=== PATIENT | female | born 1940 | race Caucasian/White ===

== ENCOUNTER → 2017-01-30 | Outpatient (CLI) | payer MEDICARE, BC ==
--- NOTE | 2017-02-02 10:09 | MM ---
Reason for exam: screening (asymptomatic). Last mammogram was performed 1 year ago. History: Patient is postmenopausal and history of other cancer. Physical Findings: A clinical breast exam by your physician is recommended on an annual basis and results should be correlated with mammographic findings. MG 3D Screening Mammo W/Cad Bilateral CC and MLO view(s) were taken. Prior study comparison: January 29, 2016, bilateral MG 3d screening mammo w/cad. November 15, 2014, bilateral MG screening mammo w CAD. There are scattered fibroglandular densities. Benign calcifications bilaterally. No significant changes when compared with prior studies. ASSESSMENT: Benign, BI-RAD 2 RECOMMENDATION: Routine screening mammogram of both breasts in 1 year.
== END | disposition home or self-care (01) ==
LOC: RADMAMWWP 10:51
PROVIDERS: ATTEND Family Medicine
DX: Z12.31 Encounter for screening mammogram for malignant neoplasm of breast (principal)
CPT/HCPCS: 77063; G0202

== ENCOUNTER → 2018-09-08 | Outpatient (CLI) | payer MEDICARE ==
[2018-09-08 08:34] LABS: Blood Urea Nitrogen 18 mg/dL (7-17)
--- NOTE | 2018-09-08 12:42 | MR ---
EXAMINATION TYPE: MR lumbar spine wo/w con DATE OF EXAM: 09/08/2018 COMPARISON: CT abdomen 02/02/2013 HISTORY: 77-year-old female Lumbago with sciatica / Fusion Technique: Multiplanar, multisequence images of the lumbar spine were obtained before and after admin istration of 9 mL intravenous Gadavist gadolinium contrast. FINDINGS: Vertebral body heights are preserved and alignment is maintained. 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 Post surgical changes of L3-L5 posterior fusion with corresponding laminectomies. There is mild to moderate degenerative disc disease at the remaining, nonfused levels and facet arthr opathy. Mild heterogeneity of marrow signal without suspicious bone marrow replacement. Conus medullaris is normal. At T12-L1, there is a small left paracentral disc protrusion without significant spinal canal or fora priscilla stenosis. At L1-L2, mild facet arthropathy without significant canal or foraminal stenosis. At L2-L3, level above the fusion, there is large central disc protrusion with annular fissure with ad ditional ligamentum flavum thickening and facet arthropathy. Changes result in a severe spinal canal stenosis with mild inferior foraminal narrowing on both sides. At the fused L3-L4 level, there is a cyst while central disc protrusion and facet arthropathy. Unifor m mild narrowing of the spinal canal without significant neuroforaminal stenosis. At L4-L5, there is a small right paracentral protrusion impressing on the ventral thecal sac. Facet a rthropathy with mild right and minimal inferior left neuroforaminal narrowing. At L5-S1, facet arthropathy without significant spinal canal or neuroforaminal stenosis seen. There appears to be severe right-sided hydronephrosis. No dilated ureter is identified. Findings may reflect UPJ obstruction. That of hydronephrosis seems worsened from 2015 and 2012. No suspicious epidural or perineural enhancing granulation tissue seen. There is metal hardware artif act limitation. IMPRESSION: 1. Postsurgical change of posterior lumbar fusion from L3 through L5 levels with corresponding kim ctomies. 2. Accelerated degenerative changes above the fusion at L2-L3. There is a focal disc herniation here with annular fissure, ligamentum flavum thickening, and facet arthropathy contributing to severe spin al canal stenosis. 3. Scattered variable minimal to mild neural foraminal stenoses as outlined above. 4. T12-L1, there is a small focal left paracentral disc herniation.
== END | disposition home or self-care (01) ==
LOC: RADMRIMAIN 07:57
PROVIDERS: ATTEND Family Medicine
DX: M48.061 Spinal stenosis, lumbar region without neurogenic claudication (principal); M99.73 Connective tissue and disc stenosis of intervertebral foramina of lumbar region; M51.15 Intervertebral disc disorders with radiculopathy, thoracolumbar region; M47.26 Other spondylosis with radiculopathy, lumbar region; M46.96 Unspecified inflammatory spondylopathy, lumbar region; Z98.1 Arthrodesis status
CPT/HCPCS: 82565; 84520; 72158; A9585

== ENCOUNTER → 2018-10-28 | Outpatient (CLI) | payer MEDICARE ==
--- NOTE | 2018-10-28 14:41 | US ---
EXAMINATION TYPE: US kidneys/renal and bladder DATE OF EXAM: 10/28/2018 COMPARISON: CT abdomen January 21, 2013. MRI lumbar spine September 08, 2018 CLINICAL HISTORY: N30.21 chronic cystitis with hematuria. EXAM MEASUREMENTS: Right Kidney: 11.9 x 5.5 x 6.2 cm Left Kidney: 10.1 x 5.2 x 4.9 cm Right Kidney: Pyelocaliectasis seen Left Kidney: difficult to visualize, echogenic kidney. Question soft tissue density as regular tissue versus mass, measures 2.0 x 1.6 x 1.9 cm. Bladder: wnl Bilateral Jets seen: Yes Severe right-sided pyelocaliectasis remains present as has been present on older studies. No gross le ft-sided hydronephrosis. Suboptimal evaluation of left kidney is seen. Increased cortical echogenicit y is present. Cannot exclude new 2 cm mass upper to mid pole level left kidney on image 37 which is n ot included in [id number] on recent MRI. 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 Suboptimal evaluation of left kidney with new cortical thinning and inc reased cortical echogenicity. No gross hydronephrosis. Cannot exclude new 2 cm solid mass. Further in vestigation with renal protocol contrast-enhanced CT or MRI is advised.
== END | disposition home or self-care (01) ==
LOC: RADUSWWP 13:52
PROVIDERS: ATTEND Family Medicine
DX: N13.30 Unspecified hydronephrosis (principal)
CPT/HCPCS: 76770

== ENCOUNTER → 2018-11-17 | Outpatient (CLI) | payer BC, MEDICARE ==
--- NOTE | 2018-11-17 15:15 | XR ---
EXAMINATION TYPE: XR chest 2V DATE OF EXAM: 11/17/2018 COMPARISON: 12/12/2017 TECHNIQUE: PA and lateral views submitted. HISTORY: Presurgical FINDINGS: Linear changes at the left lung base are seen. There is no interstitial edema or pneumothorax. Promin ence of the right suprahilar region. Heart size is stable. IMPRESSION: 1. Left basilar atelectasis or infiltrate stable 2. Prominence of the right suprahilar region is stable dating back to 2015 and therefore likely rufus childs
--- NOTE | 2018-11-17 16:48 | CT ---
EXAMINATION TYPE: CT abdomen wo/w con DATE OF EXAM: 11/17/2018 HISTORY: Abnormal diagnostic findings. Poor historian. CT DLP: 1423.5mGycm Automated Exposure Control for Dose Reduction was Utilized. CONTRAST: CT scan of the abdomen is performed without and with IV Contrast, patient injected with 100ml mL of I sovue M300. COMPARISON: 01/21/2013 CT abdomen pelvis and renal ultrasound dated 10/28/2018 FINDINGS: LUNG BASES: Severe coronary artery calcifications are seen. Multifocal subsegmental bibasilar atelect asis and pleural parenchymal scarring are noted at the lung bases. LIVER/GB: There is mild degree hepatic steatosis as there is diffuse hypoattenuation of the hepatic p arenchyma. PANCREAS: No significant abnormality is seen. SPLEEN: No significant abnormality is seen. ADRENALS: No significant abnormality is seen. KIDNEYS: There is a right lower pole 1.0 cm renal cyst. There is severe right hydroureteronephrosis w ithout obstructing calculus similar to exams dating back to 2012 highly favored to relate to chronic right ureteral pelvic junction stricture. However there is only minimal right cortical renal thinning in comparison to the left. There are bilateral subcentimeter hypoattenuated renal lesions that are t oo small to accurately characterize. No left-sided hydronephrosis. No left-sided renal lesion. BOWEL: No significant abnormality is seen. Moderate amount retained colonic stool is present. LYMPH NODES: No greater than 1cm abdominal lymph nodes are appreciated. OSSEOUS STRUCTURES: Postsurgical changes are present of the lower lumbar spine. Multilevel degenerati ve disc disease of the visualized thoracolumbar spine is noted. There is a mild levoscoliosis of the lumbar spine. Posterior disc osteophyte complex at T12-L1 creates mild to moderate spinal canal steno sis. IMPRESSION: 1. The left kidney enhances symmetrically. No left-sided renal lesion is seen, therefore the previous ly questioned left renal mass relates to artifact on the prior ultrasound. 2. Chronic right severe hydronephrosis again highly favored to relate to chronic right ureteropelvic junction stricture. 3. Mild degree hepatic steatosis. 4. Severe coronary artery calcifications, marker of coronary artery disease.
== END | disposition home or self-care (01) ==
LOC: RADCTMAIN 14:45
PROVIDERS: ATTEND Family Medicine
DX: K76.0 Fatty (change of) liver, not elsewhere classified (principal); Z01.811 Encounter for preprocedural respiratory examination; Z01.812 Encounter for preprocedural laboratory examination
CPT/HCPCS: 82565; 84520; 71046; 74170; 36415; Q9967

== ENCOUNTER 2019-04-18 16:55 | Emergency (ER) | payer MEDICARE ==
[2019-04-18 17:17] VITALS: RESP 18
[2019-04-18] MEDS ORDERED: SODIUM CHLORIDE 0.9% 1,000 ML IV ONE (17:19)
[2019-04-18] MEDS ORDERED: SODIUM CHLORIDE 0.9% 500 ML 500 ML IV ONE (17:19)
[2019-04-18] MEDS ORDERED: LIDOCAINE 1% INJ 10MG/ML (20 ML MDV) SQ ONE (17:20)
[2019-04-18] MEDS ORDERED: LIDOCAINE/EPINEPHR/TETRACAINE 5 ML BOTTLE TOPICAL ONE (17:20)
[2019-04-18] MEDS ORDERED: DIPH,PERTUS(ACELL)TETVAC-LF 0.5 ML VIAL IM ONE (17:20)
[2019-04-18 17:46] LABS: Appearance,Urine Cloudy (Clear); Bacteria,Urine Rare /hpf; Bilirubin,Urine Negative (Negative); Blood,Urine Negative (Negative); Color,Urine Yellow; Glucose,Urine (UA) Negative (Negative); Hyaline Casts,Urine 1 /lpf (0-2); Ketones,Urine Negative (Negative); Leukocyte Esterase,Urine Moderate (Negative); Mucus,Urine Rare /hpf; Nitrite,Urine Negative (Negative); PH, Urine 6.5 (5.0-8.0); Protein,Urine Negative (Negative); RBC,Urine 1 /hpf (0-5); Specific Gravity,Urine 1.017 (1.001-1.035); Squamous Epithelial Cell,Urine 1 /hpf (0-4); Urobilinogen,Urine <2.0 mg/dL (<2.0); WBC,Urine 22 /hpf (0-5)
--- NOTE | 2019-04-18 17:54 | CT ---
EXAMINATION TYPE: CT brain sandra rodriguez DATE OF EXAM: 04/18/2019 COMPARISON: 11/13/2016 HISTORY: Fall with head injury CT DLP: 1385.8 mGycm Automated exposure control for dose reduction was used. TECHNIQUE: CT scan of the head and cervical spine are performed without contrast. FINDINGS: There is some cerebral cortical atrophy. There is no mass effect nor midline shift. There is no sign of intracranial hemorrhage. Calvarium is intact. The cervical vertebra have normal alignment. There is degenerative disc space narrowing at C6-7 with spurring of the endplates. Facet joints are intact. The skull base appears intact. There is no eviden ce of cervical spine fracture. I see no focal bone destruction. IMPRESSION: Cerebral atrophy. No acute intracranial abnormality. No change. Minor degenerative disc changes in the lower cervical spine. No fracture seen.
[2019-04-18 17:55] LABS: Anion Gap 9 mmol/L; Blood Urea Nitrogen 13 mg/dL (7-17); Calcium 9.6 mg/dL (8.4-10.2); Carbon Dioxide 29 mmol/L (22-30); Chloride 102 mmol/L (98-107); Glucose 121 mg/dL (74-99); Potassium 3.2 mmol/L (3.5-5.1); Sodium 140 mmol/L (137-145)
[2019-04-18 17:58] LABS: Anisocytosis Slight; HCT 45.2 % (34.0-46.0); HGB 15.8 gm/dL (11.4-16.0); MCH 31.1 pg (25.0-35.0); MCHC 34.9 g/dL (31.0-37.0); MCV 89.1 fL (80.0-100.0); Mean Platelet Volume 8.3; Platelet Count 224 k/uL (150-450); RBC 5.07 m/uL (3.80-5.40); WBC 7.3 k/uL (3.8-10.6)
--- NOTE | 2019-04-18 18:24 | ED ---
Fall HPI - General Chief Complaint: Fall Stated Complaint: FALL, HEAD INJURY Time Seen by Provider: 04/18/19 17:05 Source: patient, EMS, RN notes reviewed, old records reviewed Mode of arrival: EMS - History of Present Illness Initial Comments: Patient is a 78-year-old female, who presents emergency department today for evaluation after tripping and falling. She reports that she fell, hit the right side of her head. Denies loss of consciousness. states that she has some right shoulder pain and left knee pain. Patient states that she is not on any blood thinners besides aspirin. Patient states reports that he witnessed the fall. She denies any chest pain or shortness breath or other symptoms prior to tripping and falling. - Related Data Home Medications Medication Instructions Recorded Confirmed Aspirin 325 mg PO DAILY 01/24/16 04/18/19 Felodipine [Felodipine ER] 10 mg PO DAILY 01/24/16 04/18/19 Levothyroxine Sodium [Synthroid] 50 mcg PO DAILY 01/24/16 04/18/19 Venlafaxine HCl [Effexor] 75 mg PO BID 01/24/16 04/18/19 Calcium Carbonate/Vitamin D3 1 tab PO DAILY 11/13/16 04/18/19 [Calcium 600-Vit D3 400 Caplet] Multivit-Min/Iron/Folic/Lutein 1 tab PO DAILY 11/13/16 04/18/19 [Centrum Silver Women Tablet] [place]-3 Fatty Acids/Fish Oil [Fish 1 cap PO DAILY 11/13/16 04/18/19 Oil 1,000 mg Softgel] Potassium Chloride ER [K-Dur 10] 10 meq PO DAILY 11/13/16 04/18/19 Vitamin E (Dl,Tocopheryl Acet) 400 unit PO DAILY 11/13/16 04/18/19 [Vitamin E] Chlorthalidone 25 mg PO DAILY 12/09/17 04/18/19 Omeprazole 40 mg PO DAILY 12/09/17 04/18/19 Atorvastatin [Lipitor] 40 mg PO HS 04/18/19 04/18/19 Atorvastatin [Lipitor] 40 mg PO HS 04/18/19 04/18/19 Tolterodine Tartrate [Detrol LA] 4 mg PO DAILY 04/18/19 04/18/19 Previous Rx's Medication Instructions Recorded Cephalexin [Keflex] 500 mg PO Q8HR #28 cap 04/18/19 Allergies Allergy/AdvReac Type Severity Reaction Status Date / Time azithromycin [From Zithromax] Allergy Rash/Hives Verified 04/18/19 17:27 celecoxib [From Celebrex] Allergy Unknown Verified 04/18/19 17:27 Penicillins Allergy Rash/Hives Verified 04/18/19 17:27 Sulfa (Sulfonamide Allergy Unknown Verified 04/18/19 17:27 Antibiotics) ciprofloxacin [From Cipro] AdvReac Unknown Verified 04/18/19 17:27 nitrofurantoin AdvReac Unknown Verified 04/18/19 17:27 [From Macrobid] tramadol HCl [From Ultram] AdvReac stomach Verified 04/18/19 17:27 upset Review of Systems ROS Statement: Those systems with pertinent positive or pertinent negative responses have been documented in the HPI. ROS Other: All systems not noted in ROS Statement are negative. Past Medical History Past Medical History: GERD/Reflux, Hyperlipidemia, Hypertension, Memory Impairment, Osteoarthritis (OA), Skin Disorder, Thyroid Disorder Additional Past Medical History / Comment(s): hx. kidney stones,UTI, constipation,INCONT OF URINE KWAN A PAD, MIGRAINES, PT STATED YEARS AGO A DR TOLD HER SHE HAD "COLITIS" History of Any Multi-Drug Resistant Organisms: ESBL Date of last positivie culture/infection: 06/25/17 MDRO Source:: urine Past Surgical History: Appendectomy, Back Surgery, Bowel Resection, Cholecystectomy, Heart Catheterization With Stent, Hysterectomy Additional Past Surgical History / Comment(s): lower back disk fusion Past Anesthesia/Blood Transfusion Reactions: Motion Sickness Date of Last Stent Placement:: 2000 Past Psychological History: Anxiety, Depression Smoking Status: Never smoker Past Alcohol Use History: None Reported Past Drug Use History: None Reported - Past Family History Mother Family Medical History: Hypertension Father Family Medical History: Hypertension General Exam - General Exam Comments Initial Comments: This is a 78-year-old female. Alert and oriented. No significant distress. Limitations: no limitations General appearance: alert, in no apparent distress Head exam: Present: atraumatic, normocephalic, normal inspection Eye exam: Present: normal appearance, PERRL, EOMI. Absent: scleral icterus, conjunctival injection, periorbital swelling ENT exam: Present: normal exam, mucous membranes moist, other ( is a 2 cm laceration over the right parietal scalp.) Neck exam: Present: normal inspection Respiratory exam: Present: normal lung sounds bilaterally. Absent: respiratory distress, wheezes, rales, rhonchi, stridor Cardiovascular Exam: Present: regular rate, normal rhythm, normal heart sounds. Absent: systolic murmur, diastolic murmur, rubs, gallop, clicks GI/Abdominal exam: Present: soft, normal bowel sounds. Absent: distended, tend erness, guarding, rebound, rigid Back exam: Present: normal inspection Neurological exam: Present: alert, oriented X3, CN II-XII intact Psychiatric exam: Present: normal affect, normal mood Skin exam: Present: warm, dry, intact, normal color. Absent: rash Course Vital Signs 04/18/19 04/18/19 17:00 19:41 Temperature 97.9 F 98.7 F Pulse Rate 78 76 Respiratory 18 18 Rate Blood Pressure 150/70 142/62 O2 Sat by Pulse 98 97 Oximetry Procedures - Laceration Laceration #1 Site: face (forehead) Size (cm): 2 Description: linear Depth: simple, single layer Anesthetic Used: lidocaine 1% Anesthesia Technique: local infiltration Amount (mls): 2 Pre-repair: wound explored, irrigated extensively Type of Sutures: nylon Size of Sutures: 5-0 Number of Sutures: 3 Technique: simple, interrupted Patient Tolerated Procedure: well, no complications Medical Decision Making - Medical Decision Making 78 year old femael presents after trip and fall. Patient has laceration over forehead and clsoed with sutures. Patient CT brain and cspine are negative. Patient has contusion over knee and r shoulder, patient has full range of motion. Patient advised that lab work shows slight UTI, will start on keflex. Ds icussed close PCP follow up. Return parameters discussed. 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 Neutrophils # (Manual) 5.00 (1.3-7.7) k/uL Lymphocytes # (Manual) 1.02 (1.0-4.8) k/uL Monocytes # (Manual) 0.95 (0-1.0) k/uL Eosinophils # (Manual) 0.29 (0-0.7) k/uL Nucleated RBCs 0 (0-0) /100 WBC Manual Slide Review Performed Anisocytosis Slight Sodium 140 (137-145) mmol/L Potassium 3.2 L (3.5-5.1) mmol/L Chloride 102 (98-107) mmol/L Carbon Dioxide 29 (22-30) mmol/L Anion Gap 9 mmol/L BUN 13 (7-17) mg/dL Creatinine 0.68 (0.52-1.04) mg/dL Est GFR (CKD-EPI)AfAm >90 (>60 ml/min/1.73 sqM) Est GFR (CKD-EPI)NonAf 85 (>60 ml/min/1.73 sqM) Glucose 121 H (74-99) mg/dL Calcium 9.6 (8.4-10.2) mg/dL Urine Color Yellow Urine Appearance Cloudy H (Clear) Urine pH 6.5 (5.0-8.0) Ur Specific [place] 1.017 (1.001-1.035) Urine Protein Negative (Negative) Urine Glucose (UA) Negative (Negative) Urine Ketones Negative (Negative) Urine Blood Negative (Negative) Urine Nitrite Negative (Negative) Urine Bilirubin Negative (Negative) Urine Urobilinogen <2.0 (<2.0) mg/dL Ur Leukocyte Esterase Moderate H (Negative) Urine RBC 1 (0-5) /hpf Urine WBC 22 H (0-5) /hpf Ur Squamous Epith Cells 1 (0-4) /hpf Urine Bacteria Rare H (None) /hpf Hyaline Casts 1 (0-2) /lpf Urine Mucus Rare H (None) /hpf Disposition Clinical Impression: Fall, Facial laceration, Knee contusion, UTI (urinary tract infection) Disposition: HOME SELF-CARE Condition: Good Instructions (If sedation given, give patient instructions): Facial Laceration (ED) Additional Instructions: Patient advised to follow-up with primary care physician about urinary tract infection. Take antibiotics as prescribed. Please return to the emergency room in 8-10 days to have sutures removed. Please leave wound covered for the first 24-48 hours and then leave open to air after that time. Please use clean soap and water to clean the suture area to prevent scabbing over the top of your sutures. Please watch for any signs of infection which may include but not limited to increased pain, swelling, redness, fever or chills. Please return to the emergency room if any signs of infection do occur. Please return to the emergency room for any other concerns or complications. Prescriptions: Cephalexin [Keflex] 500 mg PO Q8HR #28 cap Is patient prescribed a controlled substance at d/c from ED?: No Referrals: Jan Vieira DO [Primary Care Provider] - 1-2 days Time of Disposition: 19:18
[2019-04-18 18:36] LABS: Band Neutrophils % 1 %; Eosinophils # (M) 0.29 k/uL (0-0.7); Lymphocytes # (M) 1.02 k/uL (1.0-4.8); Monocytes # (M) 0.95 k/uL (0-1.0); Neutrophils % (M) 68 %; Nucleated Red Blood Cells 0 /100 WBC (0-0); Total Cells Counted 100
--- NOTE | 2019-04-18 18:45 | XR ---
EXAMINATION TYPE: XR knee complete LT DATE OF EXAM: 04/18/2019 COMPARISON: NONE HISTORY: Knee pain TECHNIQUE: 3 views FINDINGS: There is moderate narrowing of the medial joint space. There is spurring of the femoral and tibial condyles. There is narrowing and spurring at the patellofemoral joint. I see no fracture. IMPRESSION: Moderate osteoarthritis. No fracture seen.
--- NOTE | 2019-04-18 18:45 | XR ---
EXAMINATION TYPE: XR shoulder complete RT DATE OF EXAM: 04/18/2019 COMPARISON: NONE HISTORY: Shoulder pain TECHNIQUE: 3 views FINDINGS: The glenohumeral joint is anatomic. There is some spurring at the shoulder joint. There is spurring at the AC joint. I see no fracture. IMPRESSION: There is some osteoarthritis. No fracture seen.
[2019-04-18] MEDS ORDERED: CEPHALEXIN 500MG STARTER PACK 4 CAP BTL PO STA (19:17)
[2019-04-18 19:42] VITALS: BP 142/62; PULSE 76; TEMP 98.7
== END 2019-04-18 19:42 | disposition home or self-care (01) ==
LOC: EC 16:55
DX: S01.81XA Laceration without foreign body of other part of head, initial encounter (principal); S80.01XA Contusion of right knee, initial encounter; N39.0 Urinary tract infection, site not specified; M25.511 Pain in right shoulder; K21.9 Gastro-esophageal reflux disease without esophagitis; E78.5 Hyperlipidemia, unspecified; I10 Essential (primary) hypertension; M19.90 Unspecified osteoarthritis, unspecified site; E07.9 Disorder of thyroid, unspecified; F32.9 Major depressive disorder, single episode, unspecified; F41.9 Anxiety disorder, unspecified; Z79.82 Long term (current) use of aspirin; Z79.890 Hormone replacement therapy; Z79.899 Other long term (current) drug therapy; Z88.0 Allergy status to penicillin; Z88.1 Allergy status to other antibiotic agents; Z88.2 Allergy status to sulfonamides; Z88.5 Allergy status to narcotic agent; Z88.6 Allergy status to analgesic agent; Z95.5 Presence of coronary angioplasty implant and graft; Z23 Encounter for immunization; W01.198A Fall on same level from slipping, tripping and stumbling with subsequent striking against other object, initial encounter; Y92.009 Unspecified place in unspecified non-institutional (private) residence as the place of occurrence of the external cause
CPT/HCPCS: 36415; 80048; 85025; 81001; 87086; 73030; 73562; 72125; 70450; 90715; 99284; 12011; 96360; 90471; J2001; 87077; 87186

== ENCOUNTER → 2021-06-14 | Outpatient (CLI) | payer MEDICARE ==
--- NOTE | 2021-06-14 18:54 | NM ---
EXAMINATION TYPE: NM DatScan Brain SPECT DATE OF EXAM: 06/14/2021 COMPARISON: NONE HISTORY: Tremors TECHNIQUE: 10 drops of Lugol's solution was administered 1 hour prior to injection as a thyroid bloc william agent. After the administration of 4.4 mCi I-123 Ioflupane DaTscan. Images obtained [address] injection. SPECT images of the brain were acquired with axial and coronal reconstructions. FINDINGS: The axial SPECT images demonstrate increased background activity and reduced activity withi n the bilateral striata. IMPRESSION: Abnormal appearance highly suggestive of idiopathic Parkinson's disease or Parkinsonian s yndrome.
== END | disposition home or self-care (01) ==
LOC: RADNMMAIN 10:57
PROVIDERS: ATTEND Psychiatry & Neurology Neurology
DX: R25.1 Tremor, unspecified (principal)
CPT/HCPCS: 78803; A9584

== ENCOUNTER 2023-01-28 09:12 | Observation (INO) | payer MEDICARE ==
[2023-01-28] MEDS ORDERED: ASPIRIN 81 MG PO STA (09:36)
[2023-01-28] MEDS ORDERED: KETOROLAC 15 MG/ML 1 ML VIAL IVP STA (09:37)
--- NOTE | 2023-01-28 10:03 | XR ---
EXAMINATION TYPE: XR chest 2V DATE OF EXAM: 01/28/2023 COMPARISON: Chest x-ray April 17, 2019 HISTORY: Chest pain. TECHNIQUE: Frontal and lateral views of the chest are obtained. FINDINGS: Reticular increased markings bilaterally. There is no suspicious focal air space opacity, pleural effusion, or pneumothorax seen. The cardiac silhouette size is within stable and normal limi ts. The osseous structures are demineralized. IMPRESSION: Chronic changes without acute pulmonary process.
[2023-01-28 10:10] LABS: ALT 10 U/L (4-34); AST 37 U/L (14-36); African American GFR (CKD) >90 (>60 ml/min/1.73 sqM); Albumin 3.9 g/dL (3.5-5.0); Alkaline Phosphatase 168 U/L (38-126); Anion Gap 7 mmol/L; Blood Urea Nitrogen 18 mg/dL (7-17); Calcium 9.7 mg/dL (8.4-10.2); Carbon Dioxide 33 mmol/L (22-30); Chloride 91 mmol/L (98-107); Glucose 132 mg/dL (74-99); Magnesium 1.9 mg/dL (1.6-2.3); Non-African American GFR(CKD) 83 (>60 ml/min/1.73 sqM); Potassium 2.8 mmol/L (3.5-5.1); Sodium 131 mmol/L (137-145); Total Bilirubin 1.2 mg/dL (0.2-1.3); Total Protein 6.9 g/dL (6.3-8.2)
[2023-01-28 10:17] LABS: HCT 42.2 % (34.0-46.0); HGB 15.4 gm/dL (11.4-16.0); Hyperchromasia Slight; MCH 31.5 pg (25.0-35.0); MCHC 36.4 g/dL (31.0-37.0); MCV 86.7 fL (80.0-100.0); Platelet Count 356 k/uL (150-450); RBC 4.87 m/uL (3.80-5.40); RDW 13.1 % (11.5-15.5); WBC 7.8 k/uL (3.8-10.6)
[2023-01-28 10:24] LABS: INR 0.9 (<1.2); Partial Thromboplastin Time 22.1 sec (22.0-30.0); Prothrombin Time 10.1 sec (9.0-12.0)
[2023-01-28] MEDS ORDERED: POTASSIUM CHLORIDE ER 20 MEQ TAB.ER PO STA (10:43)
[2023-01-28] MEDS ORDERED: ACETAMINOPHEN TAB 500 MG TAB PO STA ×2 (10:51→13:49)
[2023-01-28 11:00] LABS: Eosinophils # (M) 0.31 k/uL (0-0.7); Lymphocytes # (M) 0.55 k/uL (1.0-4.8); Monocytes # (M) 0.23 k/uL (0-1.0); Nucleated Red Blood Cells 0 /100 WBC (0-0); Total Cells Counted 100
[2023-01-28 11:01] LABS: Neutrophils % (M) 86 %
[2023-01-28 11:09] LABS: Appearance,Urine Cloudy (Clear); Bacteria,Urine Rare /hpf; Bilirubin,Urine Negative (Negative); Blood,Urine Negative (Negative); Color,Urine Yellow; Glucose,Urine (UA) Negative (Negative); Ketones,Urine Negative (Negative); Leukocyte Esterase,Urine Large (Negative); Mucus,Urine Rare /hpf; Nitrite,Urine Negative (Negative); Protein,Urine Negative (Negative); RBC,Urine 5 /hpf (0-5); Specific Gravity,Urine 1.013 (1.001-1.035); Squamous Epithelial Cell,Urine 1 /hpf (0-4); Urobilinogen,Urine <2.0 mg/dL (<2.0); WBC,Urine 92 /hpf (0-5)
[2023-01-28 11:18] LABS: Neutrophils # (M) 6.71 k/uL (1.3-7.7)
[2023-01-28] MEDS ORDERED: SODIUM CHLORIDE 0.9% 1,000 ML IV STA (11:28)
[2023-01-28] MEDS ORDERED: ACETAMINOPHEN TAB 325 MG TAB PO PRN (11:34)
[2023-01-28] MEDS ORDERED: NALOXONE 0.4 MG/ML 1 ML VIAL IV PRN (11:34)
[2023-01-28] MEDS: POTASSIUM CHLORIDE 10 MEQ in WATER FOR INJECTION 1 100ML.BAG IVPB SCH ×4 (11:41→16:48)
[2023-01-28] MEDS: LIDOCAINE 5% PATCH TOPICAL SCH (11:41)
--- NOTE | 2023-01-28 11:42 | ED ---
General Adult HPI - General Chief complaint: Chest Pain Stated complaint: chest pain Time Seen by Provider: 01/28/23 09:14 Source: patient, EMS, RN notes reviewed, old records reviewed Mode of arrival: EMS Limitations: no limitations - History of Present Illness Initial comments: Patient is an 82-year-old female with past medical history remarkable for memory issues, hypertension, chronic back pain, thyroid disorder who presents emergency Department with multiple nonspecific complaints. Has chronic right shoulder pain and states she has had some chest pain that radiated from her right shoulder earlier today that was reproducible on palpation but currently does not have. She denies any nausea, vomiting, abdominal pain. Denies any shortness of breath. Does endorse chronic lower back pain. Denies any extremity pain. Denies any diarrhea, fevers, chills. No other acute complaints at this time. Presents for further evaluation at this time. - Related Data Home Medications Medication Instructions Recorded Confirmed Aspirin 325 mg PO DAILY 01/24/16 04/18/19 Felodipine [Plendil] 10 mg PO DAILY 01/24/16 04/18/19 Levothyroxine Sodium [Synthroid] 50 mcg PO DAILY 01/24/16 04/18/19 Venlafaxine HCl [Effexor] 75 mg PO BID 01/24/16 04/18/19 Calcium Carbonate/Vitamin D3 1 tab PO DAILY 11/13/16 04/18/19 [Calcium 600-Vit D3 400 Caplet] Multivit-Min/Iron/Folic/Lutein 1 tab PO DAILY 11/13/16 04/18/19 [Centrum Silver Women Tablet] [place]-3 Fatty Acids/Fish Oil [Fish 1 cap PO DAILY 11/13/16 04/18/19 Oil 1,000 mg Softgel] Potassium Chloride ER [K-Dur 10] 10 meq PO DAILY 11/13/16 04/18/19 Vitamin E (Dl,Tocopheryl Acet) 400 unit PO DAILY 11/13/16 04/18/19 [Vitamin E (400 Iu = 180 mg)] Chlorthalidone 25 mg PO DAILY 12/09/17 04/18/19 Omeprazole 40 mg PO DAILY 12/09/17 04/18/19 Atorvastatin [Lipitor] 40 mg PO HS 04/18/19 04/18/19 Atorvastatin [Lipitor] 40 mg PO HS 04/18/19 04/18/19 Tolterodine Tartrate [Detrol LA] 4 mg PO DAILY 04/18/19 04/18/19 Previous Rx's Medication Instructions Recorded Cephalexin [Keflex] 500 mg PO Q8HR #28 cap 04/18/19 Allergies Allergy/AdvReac Type Severity Reaction Status Date / Time azithromycin [From Zithromax] Allergy Rash/Hives Verified 01/28/23 09:22 celecoxib [From Celebrex] Allergy Unknown Verified 01/28/23 09:22 Penicillins Allergy Rash/Hives Verified 01/28/23 09:22 Sulfa (Sulfonamide Allergy Unknown Verified 01/28/23 09:22 Antibiotics) ciprofloxacin [From Cipro] AdvReac Unknown Verified 01/28/23 09:22 nitrofurantoin AdvReac Unknown Verified 01/28/23 09:22 [From Macrobid] tramadol HCl [From Ultram] AdvReac stomach Verified 01/28/23 09:22 upset Review of Systems ROS Statement: Those systems with pertinent positive or pertinent negative responses have been documented in the HPI. Review of Systems: CONST: Denies fever EYES: Denies blurry vision ENT: Denies nasal congestion C/V: Endorses reproducible chest pain medicines resolved. RESP: Denies shortness of breath GI: Denies abdominal pain : Denies dysuria SKIN: Denies rash. MSK: Endorses chronic back pain NEURO: Denies headache ROS Other: All systems not noted in ROS Statement are negative. Past Medical History Past Medical History: GERD/Reflux, Hyperlipidemia, Hypertension, Memory Impairment, Osteoarthritis (OA), Skin Disorder, Thyroid Disorder Additional Past Medical History / Comment(s): hx. kidney stones,UTI, constipation,INCONT OF URINE KWAN A PAD, MIGRAINES, PT STATED YEARS AGO A DR TOLD HER SHE HAD "COLITIS" History of Any Multi-Drug Resistant Organisms: ESBL Date of last positivie culture/infection: 06/25/17 MDRO Source:: urine Past Surgical History: Appendectomy, Back Surgery, Bowel Resection, Cholecystectomy, Heart Catheterization With Stent, Hysterectomy Additional Past Surgical History / Comment(s): lower back disk fusion Past Anesthesia/Blood Transfusion Reactions: Motion Sickness Date of Last Stent Placement:: 2000 Past Psychological History: Anxiety, Depression Smoking Status: Never smoker Past Alcohol Use History: None Reported Past Drug Use History: None Reported - Past Family History Mother Family Medical History: Hypertension Father Family Medical History: Hypertension General Exam - General Exam Comments Initial Comments: General: Appears in no acute distress. HEAD: Normal with no signs of head trauma. EYES: EOMI ENT: Hearing grossly intact, normal oropharynx. RESPIRATORY: Clear breath sounds bilaterally. No wheezes, rales, or rhonchi. C/V: Regular rate and rhythm. S1 and S2 auscultated, no edema, peripheral pulses 2+ and intact throughout ABD: Abd is soft, nontender, nondistended EXT: Normal range of motion, no obvious deformity SKIN: No rashes or lesions observed on exposed skin. NEURO: Alert and oriented 3. Limitations: no limitations Course Vital Signs 01/28/23 01/28/23 01/28/23 09:13 09:24 09:30 Temperature 98.3 F Pulse Rate 70 69 71 Respiratory 20 7 L 15 Rate Blood Pressure 161/74 161/74 139/76 O2 Sat by Pulse 96 Oximetry 01/28/23 01/28/23 01/28/23 10:00 10:30 11:00 Temperature Pulse Rate 65 65 Respiratory 12 14 Rate Blood Pressure 147/68 146/75 150/94 O2 Sat by Pulse Oximetry 01/28/23 01/28/23 01/28/23 11:30 12:00 12:15 Temperature Pulse Rate 66 62 149 H Respiratory 24 12 18 Rate Blood Pressure 134/55 131/84 O2 Sat by Pulse Oximetry Medical Decision Making - Medical Decision Making Was pt. sent in by a medical professional or institution (, PA, CUPBOARD BUILDER, urgent care, hospital, or long-term...) When possible be specific @ -No Did you speak to anyone other than the patient for history (EMS, parent, family, police, friend...)? What history was obtained from this source @ -No Did you review nursing and triage notes (agree or disagree)? Why? @ -I reviewed and agree with nursing and triage notes Were old charts reviewed (outside hosp., previous admission, EMS record, old EKG, old radiological studies, urgent care reports/EKG's, long-term records)? Report findings @ -No old charts were reviewed Differential Diagnosis (chest pain, altered mental status, abdominal pain women, abdominal pain men, vaginal bleeding, weakness, fever, dyspnea, syncope, headache, dizziness, GI bleed, back pain, seizure, CVA, palpatations, mental health, musculoskeletal)? @ -Differential Weakness: Hypoglycemia, shock, sepsis, hyponatremia, anemia, infection, NH, ETOH, adverse medicine reaction, overdose, stroke, this is not meant to be an all-inclusive list. EKG interpreted by me (3pts min.). @ -As above X-rays interpreted by me (1pt min.). @ -Chest x-ray reveals no obvious acute cardio pulmonary process CT interpreted by me (1pt min.). @ -None done U/S interpreted by me (1pt. min.). @ -None done What testing was considered but not performed or refused? (CT, X-rays, U/S, labs)? Why? @ -None What meds were considered but not given or refused? Why? @ -None Did you discuss the management of the patient with other professionals (professionals i.e. , PA, CUPBOARD BUILDER, lab, RT, psych nurse, social worker clinical, intellectual property lawyer, teacher, special service officer, case management social worker)? Give summary @ -No Was smoking cessation discussed for >3mins.? @ -No Was critical care preformed (if so, how long)? @ -No Were there social determinants of health that impacted care today? How? (Homelessness, low income, unemployed, alcoholism, drug addiction, transportation, low edu. Level, literacy, decrease access to med. care, residential, rehab)? @ -No Was there de-escalation of care discussed even if they declined (Discuss DNR or withdrawal of care, Hospice)? DNR status @ -No What co-morbidities impacted this encounter? (DM, HTN, Smoking, COPD, CAD, Cancer, CVA, ARF, Chemo, Hep., AIDS, mental health diagnosis, sleep apnea, morbid obesity)? @ -None Was patient admitted / discharged? Hospital course, mention meds given and route, prescriptions, significant lab abnormalities, going to OR and other pertinent info. @ -Based on the patient's presentation and physical exam, I am concerned for her generalized weakness as well as nonspecific chest pain. We will obtain cardio pulmonary as well as generalized labs. She was in agreement this plan. She'll be given analgesia medications for pain. She'll received aspirin as well as EMS. Vital signs within acceptable limits. EKG showed no signs of acute ischemia. Chest x-ray shows no obvious acute cardiopulmonary process. Patient's lavatory studies remarkable for an undetectable troponin. Potassium is low at 2.8. Urinalysis shows large amount of leuk esterase as well as WBCs. Concern for UTI. Remainder of labs look acceptable. Potassium was replenished. Patient was placed on Rocephin for her UTI. At this time after the patient. She will be admitted for her hypokalemia as well as her UTI. We will obtain 1 additional troponin for her atypical chest wall pain. She was in agreement with this plan. I spoke with the admitting physician, Dr. Tadeo who accepted the patient. Undiagnosed new problem with uncertain prognosis? @ -No Drug Therapy requiring intensive monitoring for toxicity (Heparin, Nitro, Insulin, Cardizem)? @ -No Were any procedures done? @ -No Diagnosis/symptom? @ -Hypokalemia Acute, or Chronic, or Acute on Chronic? @ -Acute Uncomplicated (without systemic symptoms) or Complicated (systemic symptoms)? @ -Uncomplicated Side effects of treatment? @ -No Exacerbation, Progression, or Severe Exacerbation? @ -No Poses a threat to life or bodily function? How? (Chest pain, [place], NH, pneumonia, PE, COPD, DKA, ARF, appy, cholecystitis, CVA, Diverticulitis, Homicidal, Suicidal, threat to staff... and all critical care pts) @ -Yes, can result in significant morbidity mortality Diagnosis/symptom? @ -UTI Acute, or Chronic, or Acute on Chronic? @ -Acute Uncomplicated (without systemic symptoms) or Complicated (systemic symptoms)? @ -Uncomplicated Side effects of treatment? @ -none Exacerbation, Progression, or Severe Exacerbation] @ -no Poses a threat to life or bodily function? @ -no Diagnosis/symptom? @ -Atypical chest wall pain Acute, or Chronic, or Acute on Chronic? @ -Acute Uncomplicated (without systemic symptoms) or Complicated (systemic symptoms)? @ -Uncomplicated Side effects of treatment? @ -none Exacerbation, Progression, or Severe Exacerbation] @ -no Poses a threat to life or bodily function? @ -no - Lab Data Result diagrams: 01/28/23 09:46 01/28/23 09:46 Lab Results 01/28/23 01/28/23 01/28/23 Range/Units 09:46 09:46 09:46 WBC 7.8 (3.8-10.6) k/uL RBC 4.87 (3.80-5.40) m/uL Hgb 15.4 (11.4-16.0) gm/dL Hct 42.2 (34.0-46.0) % MCV 86.7 (80.0-100.0) fL MCH 31.5 (25.0-35.0) pg MCHC 36.4 (31.0-37.0) g/dL RDW 13.1 (11.5-15.5) % Plt Count 356 (150-450) k/uL MPV 8.0 Neutrophils % (Manual) 86 % Band Neuts % (Manual) Not Reportable Lymphocytes % (Manual) 7 % Monocytes % (Manual) 3 % Eosinophils % (Manual) 4 % Neutrophils # (Manual) 6.71 (1.3-7.7) k/uL Lymphocytes # (Manual) 0.55 L (1.0-4.8) k/uL Monocytes # (Manual) 0.23 (0-1.0) k/uL Eosinophils # (Manual) 0.31 (0-0.7) k/uL Nucleated RBCs 0 (0-0) /100 WBC Manual Slide Review Performed Hyperchromasia Slight PT 10.1 (9.0-12.0) sec INR 0.9 (<1.2) APTT 22.1 (22.0-30.0) sec Sodium (137-145) mmol/L Potassium (3.5-5.1) mmol/L Chloride (98-107) mmol/L Carbon Dioxide (22-30) mmol/L Anion Gap mmol/L BUN (7-17) mg/dL Creatinine (0.52-1.04) mg/dL Est GFR (CKD-EPI)AfAm (>60 ml/min/1.73 sqM) Est GFR (CKD-EPI)NonAf (>60 ml/min/1.73 sqM) Glucose (74-99) mg/dL Calcium (8.4-10.2) mg/dL Magnesium (1.6-2.3) mg/dL Total Bilirubin (0.2-1.3) mg/dL AST (14-36) U/L ALT (4-34) U/L Alkaline Phosphatase (38-126) U/L Troponin I (0.000-0.034) ng/mL NT-Pro-B Natriuret Pep pg/mL Total Protein (6.3-8.2) g/dL Albumin (3.5-5.0) g/dL Urine Color Yellow Urine Appearance Cloudy H (Clear) Urine pH 7.0 (5.0-8.0) Ur Specific [place] 1.013 (1.001-1.035) Urine Protein Negative (Negative) Urine Glucose (UA) Negative (Negative) Urine Ketones Negative (Negative) Urine Blood Negative (Negative) Urine Nitrite Negative (Negative) Urine Bilirubin Negative (Negative) Urine Urobilinogen <2.0 (<2.0) mg/dL Ur Leukocyte Esterase Large H (Negative) Urine RBC 5 (0-5) /hpf Urine WBC 92 H (0-5) /hpf Ur Squamous Epith Cells 1 (0-4) /hpf Urine Bacteria Rare H (None) /hpf Urine Mucus Rare H (None) /hpf Influenza Type A (PCR) (Not Detectd) Influenza Type B (PCR) (Not Detectd) RSV (PCR) (Not Detectd) SARS-CoV-2 (PCR) (Not Detectd) 01/28/23 01/28/23 01/28/23 Range/Units 09:46 09:46 09:46 WBC (3.8-10.6) k/uL RBC (3.80-5.40) m/uL Hgb (11.4-16.0) gm/dL Hct (34.0-46.0) % MCV (80.0-100.0) fL MCH (25.0-35.0) pg MCHC (31.0-37.0) g/dL RDW (11.5-15.5) % Plt Count (150-450) k/uL MPV Neutrophils % (Manual) % Band Neuts % (Manual) Lymphocytes % (Manual) % Monocytes % (Manual) % Eosinophils % (Manual) % Neutrophils # (Manual) (1.3-7.7) k/uL Lymphocytes # (Manual) (1.0-4.8) k/uL Monocytes # (Manual) (0-1.0) k/uL Eosinophils # (Manual) (0-0.7) k/uL Nucleated RBCs (0-0) /100 WBC Manual Slide Review Hyperchromasia PT (9.0-12.0) sec INR (<1.2) APTT (22.0-30.0) sec Sodium 131 L (137-145) mmol/L Potassium 2.8 L (3.5-5.1) mmol/L Chloride 91 L (98-107) mmol/L Carbon Dioxide 33 H (22-30) mmol/L Anion Gap 7 mmol/L BUN 18 H (7-17) mg/dL Creatinine 0.68 (0.52-1.04) mg/dL Est GFR (CKD-EPI)AfAm >90 (>60 ml/min/1.73 sqM) Est GFR (CKD-EPI)NonAf 83 (>60 ml/min/1.73 sqM) Glucose 132 H (74-99) mg/dL Calcium 9.7 (8.4-10.2) mg/dL Magnesium 1.9 (1.6-2.3) mg/dL Total Bilirubin 1.2 (0.2-1.3) mg/dL AST 37 H (14-36) U/L ALT 10 (4-34) U/L Alkaline Phosphatase 168 H (38-126) U/L Troponin I <0.012 (0.000-0.034) ng/mL NT-Pro-B Natriuret Pep 151 pg/mL Total Protein 6.9 (6.3-8.2) g/dL Albumin 3.9 (3.5-5.0) g/dL Urine Color Urine Appearance (Clear) Urine pH (5.0-8.0) Ur Specific [place] (1.001-1.035) Urine Protein (Negative) Urine Glucose (UA) (Negative) Urine Ketones (Negative) Urine Blood (Negative) Urine Nitrite (Negative) Urine Bilirubin (Negative) Urine Urobilinogen (<2.0) mg/dL Ur Leukocyte Esterase (Negative) Urine RBC (0-5) /hpf Urine WBC (0-5) /hpf Ur Squamous Epith Cells (0-4) /hpf Urine Bacteria (None) /hpf Urine Mucus (None) /hpf Influenza Type A (PCR) (Not Detectd) Influenza Type B (PCR) (Not Detectd) RSV (PCR) (Not Detectd) SARS-CoV-2 (PCR) (Not Detectd) 01/28/23 Range/Units 09:46 WBC (3.8-10.6) k/uL RBC (3.80-5.40) m/uL Hgb (11.4-16.0) gm/dL Hct (34.0-46.0) % MCV (80.0-100.0) fL MCH (25.0-35.0) pg MCHC (31.0-37.0) g/dL RDW (11.5-15.5) % Plt Count (150-450) k/uL MPV Neutrophils % (Manual) % Band Neuts % (Manual) Lymphocytes % (Manual) % Monocytes % (Manual) % Eosinophils % (Manual) % Neutrophils # (Manual) (1.3-7.7) k/uL Lymphocytes # (Manual) (1.0-4.8) k/uL Monocytes # (Manual) (0-1.0) k/uL Eosinophils # (Manual) (0-0.7) k/uL Nucleated RBCs (0-0) /100 WBC Manual Slide Review Hyperchromasia PT (9.0-12.0) sec INR (<1.2) APTT (22.0-30.0) sec Sodium (137-145) mmol/L Potassium (3.5-5.1) mmol/L Chloride (98-107) mmol/L Carbon Dioxide (22-30) mmol/L Anion Gap mmol/L BUN (7-17) mg/dL Creatinine (0.52-1.04) mg/dL Est GFR (CKD-EPI)AfAm (>60 ml/min/1.73 sqM) Est GFR (CKD-EPI)NonAf (>60 ml/min/1.73 sqM) Glucose (74-99) mg/dL Calcium (8.4-10.2) mg/dL Magnesium (1.6-2.3) mg/dL Total Bilirubin (0.2-1.3) mg/dL AST (14-36) U/L ALT (4-34) U/L Alkaline Phosphatase (38-126) U/L Troponin I (0.000-0.034) ng/mL NT-Pro-B Natriuret Pep pg/mL Total Protein (6.3-8.2) g/dL Albumin (3.5-5.0) g/dL Urine Color Urine Appearance (Clear) Urine pH (5.0-8.0) Ur Specific [place] (1.001-1.035) Urine Protein (Negative) Urine Glucose (UA) (Negative) Urine Ketones (Negative) Urine Blood (Negative) Urine Nitrite (Negative) Urine Bilirubin (Negative) Urine Urobilinogen (<2.0) mg/dL Ur Leukocyte Esterase (Negative) Urine RBC (0-5) /hpf Urine WBC (0-5) /hpf Ur Squamous Epith Cells (0-4) /hpf Urine Bacteria (None) /hpf Urine Mucus (None) /hpf Influenza Type A (PCR) Not Detected (Not Detectd) Influenza Type B (PCR) Not Detected (Not Detectd) RSV (PCR) Not Detected (Not Detectd) SARS-CoV-2 (PCR) Not Detected (Not Detectd) - EKG Data -: EKG Interpreted by Me EKG Comments: 12-lead Electrocardiogram Interpretation Note EKG was reviewed and interpreted by myself. 12-lead ECG performed at 0915 is interpreted by me as revealing normal sinus rhythm at a rate of 69 beats per minute. [place] is leftward deviated. [place] interval is 148 ms, QRS duration is 96 ms, QTc is 355 ms.. There were no ST or T wave abnormalities to suggest myocardial ischemia or injury. R wave progression across the precordium was satisfactory. By my interpretation this EKG is non-diagnostic for acute ischemia. Disposition Clinical Impression: UTI (urinary tract infection), Hypokalemia, Chronic pain, Chest wall pain Disposition: ADMITTED IP TO THIS HOSP Condition: Stable Referrals: Jan Vieira DO [Primary Care Provider] - 1-2 days Time of Disposition: 11:30
[2023-01-28] MEDS: CARBIDOPA-LEVODOPA 10-100 MG 1 EACH TAB PO SCH ×2 (17:41→20:47)
--- NOTE | 2023-01-28 18:21 | P.HPIM ---
History of Present Illness H&P Date: 01/28/23 Patient is an 82-year-old female with PMH of hypertension, dyslipidemia, hypothyroidism, GERD presents the ED for chest pain. Patient reports chest pain for an unspecified amount of time that is now r esolved. Her chest pain is pressure-like in nature. She is unable to elaborate further. She currently complains of right shoulder pain and limited range of motion due to the pain. This issue has been ongoing for the past 2 years. Patient denies any headache, lower extremity edema, nausea vomiting, fever or chills, cough, shortness of breath, palpitations, changes in urination or bowel habits. No changes in appetite or weight. She denies any dizziness, numbness/weakness/tingling of extremities. In the ED, her vital signs were stable. Her SBP was elevated at 160. CBC was unremarkable. INR was 0.9. CMP showed sodium 131, potassium of 2.8, chloride of 91, bicarb of 33, BUN of 18, glucose 132, AST of 37, alkaline phosphatase of 168. Troponin was less than 0.0122. EKG showed sinus rhythm with left anterior fascicular block, Q waves in lead 2 and aVF. Urinalysis showed large leukocyte esterase. Influenza, COVID-19 and RSV negative. Chest x-ray showed chronic findings. Patient is admitted for chest pain, rule out acute coronary syndrome with cardiology consultation. Pertinent positives and negatives as discussed in HPI, a complete review of systems was performed and all other systems are negative. General: non toxic, no distress, appears at stated age Derm: warm, dry Head: atraumatic, normocephalic, symmetric Eyes: EOMI, no lid lag, anicteric sclera Mouth: no lip lesion, mucus membranes moist Cardiovascular: S1S2 reg, no murmur, positive posterior tibial pulse bilateral, Lungs: CTA bilateral, no rhonchi, no rales , no accessory muscle use Abdominal: soft, nontender to palpation, no guarding, no appreciable organomegaly Ext: no gross muscle atrophy, no edema, no contractures Neuro: CN II-XI grossly intact, no focal neuro deficits Psych: Alert, oriented, appropriate affect #Chest pain, acute complaint #Hypovolemic hyponatremia #Hypokalemia #Urinary tract infection Chronic complaints: Hypertension, dyslipidemia, hypothyroidism, GERD Based on my assessment of this patient, this patient meets a high complexity level of care. I have reviewed the following accounting policy consultant notes: None. I have reviewed the results of the following tests: CBC was unremarkable. INR was 0.9. CMP showed sodium 131, potassium of 2.8, chloride of 91, bicarb of 33, BUN of 1 8, glucose 132, AST of 37, alkaline phosphatase of 168. Troponin was less than 0.0122. I have ordered the following tests: Troponin. Urine culture. Repeat BMP tomorrow morning. Echocardiogram. I have discussed the care of this patient with the following independent historian: None. I have independently interpreted the following test below: EKG showed sinus rhythm with left anterior fascicular block, Q waves in lead 2 and aVF Chest x-ray showed chronic findings I have discussed the management of this patient with the following physician: The case was discussed with the ED physician who agreed to admit the patient for chest pain, rule out acute coronary syndrome due to her moderate risk and HEART score of 4. This patient has a high risk of morbidity due to the following reasons: Patient has an acute diagnosis of chest pain that poses a threat to life or bodily function. Her HEART score is 4 putting her at moderate risk for ACS. Trend troponin/EKG to rule out ACS. Aspirin 325 mg by mouth given in the ED. Continue Lipitor. Obtain echocardiogram Telemetry monitoring. Cardiology consulted for further management of this patient. Continue Rocephin 1 g daily for treatment of UTI. Follow urine culture. Electrolyte abnormalities likely due to chlorthalidone, which will be discon tinued. Potassium replace with 40 mEq by mouth. Continue normal saline at 130 mL/h. Repeat BMP tomorrow morning. Heparin SQ for DVT prophylaxis. Due to patient's confusion, she will be placed FULL CODE for now. Past Medical History Past Medical History: GERD/Reflux, Hyperlipidemia, Hypertension, Memory Impairment, Osteoarthritis (OA), Skin Disorder, Thyroid Disorder Additional Past Medical History / Comment(s): hx. kidney stones,UTI, constipation,INCONT OF URINE KWAN A PAD, MIGRAINES, PT STATED YEARS AGO A DR TOLD HER SHE HAD "COLITIS" History of Any Multi-Drug Resistant Organisms: ESBL Date of last positivie culture/infection: 06/25/17 MDRO Source:: urine Past Surgical History: Appendectomy, Back Surgery, Bowel Resection, C holecystectomy, Heart Catheterization With Stent, Hysterectomy Additional Past Surgical History / Comment(s): lower back disk fusion Past Anesthesia/Blood Transfusion Reactions: Motion Sickness Date of Last Stent Placement:: 2000 Past Psychological History: Anxiety, Depression Smoking Status: Never smoker Past Alcohol Use History: None Reported Past Drug Use History: None Reported - Past Family History Mother History Unknown: Yes Family Medical History: Hypertension Father History Unknown: Yes Family Medical History: Hypertension Medications and Allergies Home Medications Medication Instructions Recorded Confirmed Type Felodipine [Plendil] 10 mg PO DAILY 01/24/16 01/28/23 History Levothyroxine Sodium [Synthroid] 50 mcg PO DAILY 01/24/16 01/28/23 History Venlafaxine HCl [Effexor] 150 mg PO DAILY 01/24/16 01/28/23 History Chlorthalidone 25 mg PO DAILY 12/09/17 01/28/23 History Omeprazole 40 mg PO DAILY 12/09/17 01/28/23 History Atorvastatin [Lipitor] 40 mg PO HS 04/18/19 01/28/23 History Tolterodine Tartrate [Detrol LA] 4 mg PO DAILY 04/18/19 01/28/23 History Carbidopa-Levodopa 10-100 mg 1 tab PO QID 01/28/23 01/28/23 History [Sinemet 10-100] Cephalexin [Keflex] 500 mg PO TID 01/28/23 01/28/23 History Potassium Chloride ER [K-Dur 20] 20 meq PO DAILY 01/28/23 01/28/23 History Allergies Allergy/AdvReac Type Severity Reaction Status Date / Time azithromycin [From Zithromax] Allergy Rash/Hives Verified 01/28/23 09:22 celecoxib [From Celebrex] Allergy Unknown Verified 01/28/23 09:22 Penicillins Allergy Rash/Hives Verified 01/28/23 09:22 Sulfa (Sulfonamide Allergy Unknown Verified 01/28/23 09:22 Antibiotics) ciprofloxacin [From Cipro] AdvReac Unknown Verified 01/28/23 09:22 nitrofurantoin AdvReac Unknown Verified 01/28/23 09:22 [From Macrobid] tramadol HCl [From Ultram] AdvReac stomach Verified 01/28/23 09:22 upset Physical Exam Vitals: Vital Signs Temp Pulse Pulse Resp BP BP Pulse Ox 01/28/23 15:42 97.8 F 63 17 160/79 100 01/28/23 15:05 98.1 F 62 17 131/71 98 01/28/23 13:30 68 18 128/68 98 01/28/23 12:15 149 H 18 01/28/23 12:00 62 12 131/84 01/28/23 11:30 66 24 134/55 01/28/23 11:00 65 14 150/94 01/28/23 10:30 146/75 01/28/23 10:00 65 12 147/68 01/28/23 09:30 71 15 139/76 01/28/23 09:24 69 7 L 161/74 01/28/23 09:13 98.3 F 70 20 161/74 96 Intake and Output 01/28/23 01/28/23 01/28/23 06:59 14:59 22:59 Intake Total 118 Balance 118 Intake: Oral 118 Other: Voiding Method Toilet # Voids 1 Weight 68.039 kg 68.039 kg Results CBC & Chem 7: 01/28/23 09:46 01/28/23 09:46 Labs: Abnormal Lab Results - Last 24 Hours (Table) 01/28/23 01/28/23 01/28/23 Range/Units 09:46 09:46 09:46 Lymphocytes # (Manual) 0.55 L (1.0-4.8) k/uL Sodium 131 L (137-145) mmol/L Potassium 2.8 L (3.5-5.1) mmol/L Chloride 91 L (98-107) mmol/L Carbon Dioxide 33 H (22-30) mmol/L BUN 18 H (7-17) mg/dL Glucose 132 H (74-99) mg/dL AST 37 H (14-36) U/L Alkaline Phosphatase 168 H (38-126) U/L Urine Appearance Cloudy H (Clear) Ur Leukocyte Esterase Large H (Negative) Urine WBC 92 H (0-5) /hpf Urine Bacteria Rare H (None) /hpf Urine Mucus Rare H (None) /hpf Microbiology - Last 24 Hours (Table) 01/28/23 09:46 Urine Culture - Preliminary Urine,Voided
[2023-01-28] MEDS: HEPARIN SODIUM,PORCINE/PF 5,000 UNIT/0.5 ML SYRINGE SQ SCH (20:46)
[2023-01-28] MEDS: ATORVASTATIN 40 MG TAB PO SCH (20:46)
[2023-01-29] MEDS: LEVOTHYROXINE 50 MCG TAB PO SCH (05:36)
[2023-01-29] MEDS: amLODIPine 10 MG TAB PO SCH (08:26)
[2023-01-29] MEDS: HEPARIN SODIUM,PORCINE/PF 5,000 UNIT/0.5 ML SYRINGE SQ SCH ×2 (08:26→22:34)
[2023-01-29] MEDS: OXYBUTYNIN XL 5 MG TAB.ER.24 PO SCH (08:26)
[2023-01-29] MEDS: PANTOPRAZOLE 40 MG TABLET PO SCH (08:26)
[2023-01-29] MEDS: LIDOCAINE 5% PATCH TOPICAL SCH (08:27)
[2023-01-29] MEDS: VENLAFAXINE HCL 75 MG TAB PO SCH (08:28)
[2023-01-29] MEDS: CARBIDOPA-LEVODOPA 10-100 MG 1 EACH TAB PO SCH ×4 (08:28→22:34)
[2023-01-29 08:42] LABS: HCT 40.6 % (34.0-46.0); HGB 14.1 gm/dL (11.4-16.0); MCH 31.2 pg (25.0-35.0); MCHC 34.8 g/dL (31.0-37.0); MCV 89.6 fL (80.0-100.0); Mean Platelet Volume 7.6; Platelet Count 339 k/uL (150-450); RBC 4.53 m/uL (3.80-5.40); WBC 5.2 k/uL (3.8-10.6)
[2023-01-29 08:58] LABS: African American GFR (CKD) >90 (>60 ml/min/1.73 sqM); Anion Gap 5 mmol/L; Blood Urea Nitrogen 16 mg/dL (7-17); Calcium 9.3 mg/dL (8.4-10.2); Carbon Dioxide 34 mmol/L (22-30); Chloride 97 mmol/L (98-107); Glucose 129 mg/dL (74-99); Non-African American GFR(CKD) 85 (>60 ml/min/1.73 sqM); Potassium 3.6 mmol/L (3.5-5.1); Sodium 136 mmol/L (137-145)
[2023-01-29] MEDS ORDERED: CHLORTHALIDONE 25 MG TAB PO SCH (09:00)
[2023-01-29 09:10] LABS: Basophils # (M) 0.05 k/uL (0-0.2); Eosinophils # (M) 0.21 k/uL (0-0.7); Lymphocytes # (M) 0.94 k/uL (1.0-4.8); Monocytes # (M) 0.73 k/uL (0-1.0); Neutrophils # (M) 3.28 k/uL (1.3-7.7); Neutrophils % (M) 63 %; Nucleated Red Blood Cells 0 /100 WBC (0-0); Total Cells Counted 100
[2023-01-29 09:12] LABS: RBC Morphology Normal
--- NOTE | 2023-01-29 15:10 | P.PN ---
Subjective Progress Note Date: 01/29/23 Patient is an 82-year-old female with PMH of hypertension, dyslipidemia, hypothyroidism, GERD presents the ED for chest pain. Patient reports chest pain for an unspecified amount of time that is now resolved. Her chest pain is pressure-like in nature. She is unable to elaborate further. She currently c omplains of right shoulder pain and limited range of motion due to the pain. This issue has been ongoing for the past 2 years. In the ED, her vital signs were stable. Her SBP was elevated at 160. CBC was unremarkable. INR was 0.9. CMP showed sodium 131, potassium of 2.8, chloride of 91, bicarb of 33, BUN of 18, glucose 132, AST of 37, alkaline phosphatase of 168. Troponin was less than 0.0122. EKG showed sinus rhythm with left anterior fascicular block, Q waves in lead 2 and aVF. Urinalysis showed large leukocyte esterase. Influenza, COVID-19 and RSV negative. Chest x-ray showed chronic findings. Patient is admitted for chest pain, rule out acute coronary syndrome with cardiology consultation. Patient was seen and examined. No acute events overnight. Patient denies any chest pain, shortness breath or palpitations. No nausea or vomiting. No fever or chills. She complains of urinary frequency. General: non toxic, no distress, appears at stated age Derm: warm, dry Head: atraumatic, normocephalic, symmetric Eyes: EOMI, no lid lag, anicteric sclera Mouth: no lip lesion, mucus membranes moist Cardiovascular: S1S2 reg, no murmur Lungs: CTA bilateral, no rhonchi, no rales , no accessory muscle use Ext: no gross muscle atrophy, no edema, no contractures Neuro: no focal neuro deficits Psych: Alert, oriented, appropriate affect #Chest pain, acute complaint #Hypovolemic hyponatremia #Urinary tract infection Resolved: Hypokalemia Chronic complaints: Hypertension, dyslipidemia, hypothyroidism, GERD Based on my assessment of this patient, this patient meets a moderate complexity level of care. I have reviewed the following small business consultant notes: None. I have reviewed the results of the following tests: CBC was unremarkable. BMP shows Na 136, Cl 97, bicarb of 34. Urine culture 10-50k genital tom. I have ordered the following tests: Echocardiogram pending. I have discussed the care of this patient with the following independent historian: None. I have independently interpreted the following test below: None. I have discussed the management of this patient with the following physician: None. This patient has a moderate risk of morbidity due to the following reasons: Patient has an acute diagnosis of chest pain that poses a threat to life or bodily function. Her HEART score is 4 putting her at moderate risk for ACS. ACS ruled out. Aspirin 325 mg by mouth given in the ED. Continue Lipitor. Echocardiogram pending. Telemetry monitoring. Cardiology consult pending. Continue Rocephin 1 g daily for treatment of UTI. Urine culture negative. Electrolytes improving. Discontinue IVF and encourage hydration by mouth. Heparin SQ for DVT prophylaxis. Patient states she would like to be NO CODE. Objective - Vital Signs Vital signs: Vital Signs Temp 98 F 01/29/23 08:00 Pulse 64 01/29/23 08:00 Resp 20 01/29/23 08:00 BP 154/75 01/29/23 08:00 Pulse Ox 98 01/29/23 09:17 FiO2 Intake & Output 01/28/23 01/29/23 01/29/23 18:59 06:59 18:59 Intake Total 118 180 Balance 118 180 Weight 68.039 kg Intake: Oral 118 180 Other: Voiding Method Toilet Toilet # Voids 1 2 - Labs CBC & Chem 7: 01/29/23 07:36 01/29/23 07:36 Labs: Abnormal Lab Results - Last 24 Hours (Table) 01/29/23 01/29/23 Range/Units 07:36 07:36 Lymphocytes # (Manual) 0.94 L (1.0-4.8) k/uL Sodium 136 L (137-145) mmol/L Chloride 97 L (98-107) mmol/L Carbon Dioxide 34 H (22-30) mmol/L Glucose 129 H (74-99) mg/dL Microbiology - Last 24 Hours (Table) 01/28/23 09:46 Urine Culture - Final Urine,Voided
--- NOTE | 2023-01-29 21:01 | P.CRDCN ---
History of Present Illness History of present illness: HISTORY OF PRESENT ILLNESS: This is a 82-year-old female with a past medical history significant for hypertension, HLD, mild dementia, GERD. She follows in the office with Dr Foss. She is somewhat of a poor historian however apparently lives with her . She had been having sternal chest pain which is sharp and worse with palpation and deep inspiration. This has been worse the last few days. She was found to have normal troponins and Echo performed today, results not demar ilable however personally reviewed and has preserved EF without significant valvular disease. EKG shows sinus rhythm without significant ST or T wave abnormalities. REVIEW OF SYSTEMS: At the time of my exam: CONSTITUTIONAL: Denies fever or chills. HEENT: Denies blurred vision, vision changes, or eye pain. Denies hemoptysis CARDIOVASCULAR: +chest pain. Denies orthopnea. Denies PND. Denies palpitations RESPIRATORY: Denies shortness of breath. GASTROINTESTINAL: Denies abdominal pain. Denies nausea or vomiting. HEMATOLOGIC: Denies bleeding disorders. GENITOURINARY: Denies any blood in urine. SKIN: Denies pruitis. Denies rash. PHYSICAL EXAM: VITAL SIGNS: Reviewed. GENERAL: Well-developed in no acute distress. HEENT: Head is normocephalic. Pupils are equal, round. Sclerae anicteric. Mucous membranes of the mouth are moist. Neck supple. No JVD or thyromegaly LUNGS: Respirations even and unlabored. Lungs essentially clear to auscultation bilaterally. HEART: Regular rate and rhythm. S1 and S2 heard. +reproducible chest pain with palpation ABDOMEN: Soft. Nondistended. Nontender. BS x 4 quadrants EXTREMITIES: Normal range of motion. No clubbing or cyanosis. Peripheral pulses intact. No lower extremity edema NEUROLOGIC: Awake and alert. ASSESSMENT: Musculoskeletal chest pain, noncardiac and reproducible Hypertension Hypokalemia UTI PLAN: Echo personally reviewed with preserved EF and no significant valvular disease. [facility] with [facility] for blood pressure management with BP predominantly controlled. No further workup as an inpatient and followup with Dr Foss on discharge. Past Medical History Past Medical History: GERD/Reflux, Hyperlipidemia, Hypertension, Memory Impairment, Osteoarthritis (OA), Skin Disorder, Thyroid Disorder Additional Past Medical History / Comment(s): hx. kidney stones,UTI, constipation,INCONT OF URINE KWAN A PAD, MIGRAINES, PT STATED YEARS AGO A DR TOLD HER SHE HAD "COLITIS" History of Any Multi-Drug Resistant Organisms: ESBL Date of last positivie culture/infection: 06/25/17 MDRO Source:: urine Past Surgical History: Appendectomy, Back Surgery, Bowel Resection, Cholecystectomy, Heart Catheterization With Stent, Hysterectomy Additional Past Surgical History / Comment(s): lower back disk fusion Past Anesthesia/Blood Transfusion Reactions: Motion Sickness Date of Last Stent Placement:: 2000 Past Psychological History: Anxiety, Depression Smoking Status: Never smoker Past Alcohol Use History: None Reported Past Drug Use History: None Reported - Past Family History Mother History Unknown: Yes Family Medical History: Hypertension Father History Unknown: Yes Family Medical History: Hypertension Medications and Allergies Home Medications Medication Instructions Recorded Confirmed Type Felodipine [Plendil] 10 mg PO DAILY 01/24/16 01/28/23 History Levothyroxine Sodium [Synthroid] 50 mcg PO DAILY 01/24/16 01/28/23 History Venlafaxine HCl [Effexor] 150 mg PO DAILY 01/24/16 01/28/23 History Chlorthalidone 25 mg PO DAILY 12/09/17 01/28/23 History Omeprazole 40 mg PO DAILY 12/09/17 01/28/23 History Atorvastatin [Lipitor] 40 mg PO HS 04/18/19 01/28/23 History Tolterodine Tartrate [Detrol LA] 4 mg PO DAILY 04/18/19 01/28/23 History Carbidopa-Levodopa 10-100 mg 1 tab PO QID 01/28/23 01/28/23 History [Sinemet 10-100] Cephalexin [Keflex] 500 mg PO TID 01/28/23 01/28/23 History Potassium Chloride ER [K-Dur 20] 20 meq PO DAILY 01/28/23 01/28/23 History Allergies Allergy/AdvReac Type Severity Reaction Status Date / Time azithromycin [From Zithromax] Allergy Rash/Hives Verified 01/28/23 09:22 celecoxib [From Celebrex] Allergy Unknown Verified 01/28/23 09:22 Penicillins Allergy Rash/Hives Verified 01/28/23 09:22 Sulfa (Sulfonamide Allergy Unknown Verified 01/28/23 09:22 Antibiotics) ciprofloxacin [From Cipro] AdvReac Unknown Verified 01/28/23 09:22 nitrofurantoin AdvReac Unknown Verified 01/28/23 09:22 [From Macrobid] tramadol HCl [From Ultram] AdvReac stomach Verified 01/28/23 09:22 upset Physical Exam Vitals: Vital Signs Temp Pulse Resp BP Pulse Ox 01/29/23 15:00 98.5 F 64 18 140/72 99 01/29/23 09:17 98 01/29/23 08:00 98 F 64 20 154/75 97 01/29/23 04:00 58 L 18 146/84 98 01/29/23 01:24 60 16 01/28/23 23:04 97.8 F 59 L 18 157/85 98 Intake and Output 01/29/23 01/29/23 01/29/23 06:59 14:59 22:59 Intake Total 300 240 Balance 300 240 Intake: Oral 300 240 Other: Voiding Method Toilet # Voids 2 1 2 Results 01/29/23 07:36 01/29/23 07:36 CBC 01/29/23 Range/Units 07:36 WBC 5.2 (3.8-10.6) k/uL RBC 4.53 (3.80-5.40) m/uL Hgb 14.1 (11.4-16.0) gm/dL Hct 40.6 (34.0-46.0) % Plt Count 339 (150-450) k/uL Comprehensive Metabolic Panel 01/29/23 Range/Units 07:36 Sodium 136 L (137-145) mmol/L Potassium 3.6 (3.5-5.1) mmol/L Chloride 97 L (98-107) mmol/L Carbon Dioxide 34 H (22-30) mmol/L BUN 16 (7-17) mg/dL Creatinine 0.63 (0.52-1.04) mg/dL Glucose 129 H (74-99) mg/dL Calcium 9.3 (8.4-10.2) mg/dL Current Medications Generic Name Dose Route Start Last Admin Trade Name Freq PRN Reason Stop Dose Admin Acetaminophen 650 mg 01/28/23 11:34 Acetaminophen Tab 325 Mg Tab PO Q6HR PRN Mild Pain or Fever > 100.5 Amlodipine Besylate 10 mg 01/29/23 09:00 01/29/23 08:26 Amlodipine 10 Mg Tab PO 10 mg DAILY MAGALI Administration Atorvastatin Calcium 40 mg 01/28/23 21:00 01/28/23 20:46 Atorvastatin 40 Mg Tab PO 40 mg HS MAGALI Administration Carbidopa/Levodopa 1 each 01/28/23 18:00 01/29/23 18:13 Carbidopa-Levodopa 10-100 Mg 1 Each Tab PO 1 each QID MAGALI Administration Heparin Sodium (Porcine) 5,000 unit 01/28/23 21:00 01/29/23 08:26 Heparin Sodium,Porcine/Pf 5,000 Unit/0.5 Ml Syringe SQ 5,000 unit Q12HR MAGALI Administration Ceftriaxone Sodium 1 gm/ 50 mls @ 100 mls/hr 01/28/23 12:00 01/29/23 08:26 Sodium Chloride IVPB 100 mls/hr Q24HR MAGALI Administration Protocol Levothyroxine Sodium 50 mcg 01/29/23 06:30 01/29/23 05:36 Levothyroxine 50 Mcg Tab PO 50 mcg 0630 MAGALI Administration Lidocaine 1 patch 01/28/23 12:00 01/29/23 08:27 Lidocaine 5% Patch TOPICAL 1 patch DAILY MAGALI Administration Protocol Naloxone HCl 0.2 mg 01/28/23 11:34 Naloxone 0.4 Mg/Ml 1 Ml Vial IV Q2M PRN Opioid Reversal Oxybutynin Chloride 10 mg 01/29/23 09:00 01/29/23 08:26 Oxybutynin Xl 5 Mg Tab.Er.24 PO 10 mg DAILY MAGALI Administration Pantoprazole Sodium 40 mg 01/29/23 09:00 01/29/23 08:26 Pantoprazole 40 Mg Tablet PO 40 mg DAILY MAGALI Administration Venlafaxine HCl 150 mg 01/29/23 09:00 01/29/23 08:28 Venlafaxine Hcl 75 Mg Tab PO 150 mg DAILY MAGALI Administration Intake and Output 01/29/23 01/29/23 01/29/23 06:59 14:59 22:59 Intake Total 300 240 Balance 300 240 Intake: Oral 300 240 Other: Voiding Method Toilet # Voids 2 1 2 01/29/23 07:36 01/29/23 07:36
[2023-01-29] MEDS: ATORVASTATIN 40 MG TAB PO SCH (22:34)
[2023-01-29] MEDS ORDERED: MELATONIN 5 MG TABLET PO SCH (22:45)
[2023-01-30] MEDS: LEVOTHYROXINE 50 MCG TAB PO SCH (06:38)
--- NOTE | 2023-01-30 07:07 | P.DS ---
Providers Date of admission: 01/28/23 11:34 Expected date of discharge: 01/30/23 Attending physician: Jyaden Tadeo MD Consults: 01/28/23 18:03 Consult Physician Routine Consulting Provider: Cordell Perez Consult Reason/Comments: Chest pain Do you want consulting provider notified?: Yes Primary care physician: [facility] Hospital Course: Patient is an 82-year-old female with PMH of hypertension, dyslipidemia, hypothyroidism, GERD presents the ED for chest pain. Patient reports chest pain for an unspecified amount of time that is now resolved. Her chest pain is pres sure-like in nature. She is unable to elaborate further. She currently complains of right shoulder pain and limited range of motion due to the pain. This issue has been ongoing for the past 2 years. In the ED, her vital signs were stable. Her SBP was elevated at 160. CBC was unremarkable. INR was 0.9. CMP showed sodium 131, potassium of 2.8, chloride of 91, bicarb of 33, BUN of 18, glucose 132, AST of 37, alkaline phosphatase of 168. Troponin was less than 0.0122. EKG showed sinus rhythm with left anterior fascicular block, Q waves in lead 2 and aVF. Urinalysis showed large leukocyte esterase. Influenza, COVID-19 and RSV negative. Chest x-ray showed chronic findings. Patient is admitted for chest pain, rule out acute coronary syndrome with cardiology consultation. Troponins were trended and ACS was ruled out. Echocardiogram was done which was reviewed by cardiology showed no significant valvular abnormalities and preserved EF. Cardiology cleared the patient for discharge. Her hyponatremia resolved with IV fluids and discontinuing chlorthalidone. Urine culture was negative growing 10-50,000 genital tom. She received 2 days of Rocephin IV during her hospitalization. Chlorthalidone will be discontinued on discharge. Her blood pressure is appropriate for her age. PT and OT was consulted and recommended home with home care. She is advised to follow-up with her PCP within 1-2 days of discharge. She is advised to follow-up with cardiology within 1 week of discharge. Patient was seen and examined. No acute events overnight. Patient denies any chest pain, shortness breath or palpitations. No nausea or vomiting. No fever or chills. She is looking for to going home. Pertinent studies include chest x-ray, echocardiogram. General: non toxic, no distress, appears at stated age Derm: warm, dry Head: atraumatic, normocephalic, symmetric Eyes: EOMI, no lid lag, anicteric sclera Mouth: no lip lesion, mucus membranes moist Cardiovascular: S1S2 reg, no murmur Lungs: CTA bilateral, no rhonchi, no rales , no accessory muscle use Ext: no gross muscle atrophy, no edema, no contractures Neuro: no focal neuro deficits Psych: Alert, oriented, appropriate affect Discharge diagnosis: #Chest pain, acute complaint #Hypovolemic hyponatremia #Urinary tract infection Resolved: Hypokalemia Chronic complaints: Hypertension, dyslipidemia, hypothyroidism, GERD This complex discharge took 35 minutes to complete. Patient Condition at Discharge: Stable Plan - Discharge Summary Discharge Rx Participant: No New Discharge Prescriptions: Continue Venlafaxine HCl [Effexor] 150 mg PO DAILY Levothyroxine Sodium [Synthroid] 50 mcg PO DAILY Felodipine [Plendil] 10 mg PO DAILY Omeprazole 40 mg PO DAILY Tolterodine Tartrate [Detrol LA] 4 mg PO DAILY Atorvastatin [Lipitor] 40 mg PO HS Carbidopa-Levodopa 10-100 mg [Sinemet 10-100 mg] 1 tab PO QID Discontinued Chlorthalidone 25 mg PO DAILY Cephalexin [Keflex] 500 mg PO TID Potassium Chloride ER [K-Dur 20] 20 meq PO DAILY Discharge Medication List Felodipine [Plendil] 10 mg PO DAILY 01/24/16 [History] Levothyroxine Sodium [Synthroid] 50 mcg PO DAILY 01/24/16 [History] Venlafaxine HCl [Effexor] 150 mg PO DAILY 01/24/16 [History] Omeprazole 40 mg PO DAILY 12/09/17 [History] Atorvastatin [Lipitor] 40 mg PO HS 04/18/19 [History] Tolterodine Tartrate [Detrol LA] 4 mg PO DAILY 04/18/19 [History] Carbidopa-Levodopa 10-100 mg [Sinemet 10-100 mg] 1 tab PO QID 01/28/23 [History] Follow up Appointment(s)/Referral(s): Cordell Perez MD [STAFF PHYSICIAN] - 1 Week Jan Vieira DO [Primary Care Provider] - 1-2 days Activity/Diet/Wound Care/Special Instructions: Diet: Low salt FU PCP within 1-2 days of discharge. Follow up with Cardiology within 1 week of discharge. Take all medications as advised. Come back to the ED or call 911 for chest pain, shortness of breath, palpitations or lightheadedness. Discharge Disposition: HOME SELF-CARE
[2023-01-30 07:22] VITALS: BP 135/74; PULSE 60; RESP 18; TEMP 97.7
[2023-01-30] MEDS: amLODIPine 10 MG TAB PO SCH (09:07)
[2023-01-30] MEDS: OXYBUTYNIN XL 5 MG TAB.ER.24 PO SCH (09:08)
[2023-01-30] MEDS: PANTOPRAZOLE 40 MG TABLET PO SCH (09:09)
[2023-01-30] MEDS: LIDOCAINE 5% PATCH TOPICAL SCH (09:09)
[2023-01-30] MEDS: CARBIDOPA-LEVODOPA 10-100 MG 1 EACH TAB PO SCH (09:09)
[2023-01-30] MEDS: VENLAFAXINE HCL 75 MG TAB PO SCH (09:09)
[2023-01-30] MEDS: HEPARIN SODIUM,PORCINE/PF 5,000 UNIT/0.5 ML SYRINGE SQ SCH (09:11)
--- NOTE | 2023-01-30 12:25 | CA ---
Transthoracic Echo Report Name: Mohini Keating Age: 82 Gender: F : 1940 Exam Date: 01/29/2023 07:38 Exam Location: [facility] Ht (in): 63 Wt (lb): 150 Ordering Physician: Pearl Virk MD Attending/Referring Phys: Wrister Pamela Khan RDCS Procedure CPT: Indications: CP Cardiac Hx: Technical Quality: Fair Contrast 1: Total Dose (mL): Contrast 2: Total Dose (mL): MEASUREMENTS (Male / Female) Normal Values 2D ECHO LVOT Diameter 1.9 cm LA Volume 61.1 cm??? 18 - 58 / 22 - 52 cm??? M-MODE Aortic Root Diameter MM 1.5 cm AV Cusp Separation MM 0.5 cm DOPPLER AV Peak Velocity 205.8 cm/s AV Peak Gradient 16.9 mmHg AV Mean Velocity 141.6 cm/s AV Mean Gradient 8.7 mmHg AV Velocity Time Integral 46.5 cm LVOT Peak Velocity 113.8 cm/s LVOT Peak Gradient 5.2 mmHg AV Area Cont Eq pk 1.5 cm??? MV Area PHT 2.4 cm??? Mitral E Point Velocity 104.0 cm/s Mitral A Point Velocity 142.5 cm/s Mitral E to A Ratio 0.7 MV Deceleration Time 309.7 ms FINDINGS Left Ventricle Mild concentric left ventricular hypertrophy. Left ventricular cavity size normal. Grade 1 diastolic dysfunction. Left ventricular ejection fraction is estimated at 55-60%. Right Ventricle Normal right ventricular size. Normal right ventricular global systolic function. Right ventricular systolic pressure within normal limits. Right Atrium Normal right atrial size. Left Atrium Mildly increased left atrial volume. Mitral Valve Mitral annular calcification. Trace mitral regurgitation. Aortic Valve Trileaflet aortic valve. Aortic valve sclerosis. No aortic regurgitation. Mild aortic stenosis. Tricuspid Valve Structurally normal tricuspid valve. No tricuspid regurgitation. No tricuspid stenosis. Pulmonic Valve Structurally normal pulmonic valve. No pulmonic regurgitation. No pulmonic stenosis. Pericardium No pericardial or pleural effusion. Aorta Normal size aortic root and proximal ascending aorta. CONCLUSIONS Normal LV systolic function. Mild concentric LVH Aortic sclerosis with mild aortic stenosis Previewed by: Dr. Cordell Perez MD (Electronically Signed) Final Date: 30 January 2023 12:25
== END 2023-01-30 10:55 | disposition home or self-care (01) ==
LOC: EC 09:12 → 3SCARD 11:34 → 6NMEDSUR 01-29 11:04
PROVIDERS: ADMIT Student in an Organized Health Care Education/Training Program; ATTEND Student in an Organized Health Care Education/Training Program
DX: R07.89 Other chest pain (principal); N39.0 Urinary tract infection, site not specified; E86.1 Hypovolemia; E87.1 Hypo-osmolality and hyponatremia; E87.6 Hypokalemia; I10 Essential (primary) hypertension; K21.9 Gastro-esophageal reflux disease without esophagitis; E78.5 Hyperlipidemia, unspecified; Z20.822 Contact with and (suspected) exposure to COVID-19; E03.9 Hypothyroidism, unspecified; F03.A0 Unspecified dementia, mild, without behavioral disturbance, psychotic disturbance, mood disturbance, and anxiety; G89.29 Other chronic pain; M54.50 Low back pain, unspecified; M25.511 Pain in right shoulder; R32 Unspecified urinary incontinence; Z86.19 Personal history of other infectious and parasitic diseases; Z87.442 Personal history of urinary calculi; Z90.49 Acquired absence of other specified parts of digestive tract; Z95.5 Presence of coronary angioplasty implant and graft; Z90.710 Acquired absence of both cervix and uterus; F41.9 Anxiety disorder, unspecified; F32.A Depression, unspecified; Z98.1 Arthrodesis status; Z82.49 Family history of ischemic heart disease and other diseases of the circulatory system; Z79.82 Long term (current) use of aspirin; Z79.890 Hormone replacement therapy; Z79.899 Other long term (current) drug therapy; Z88.6 Allergy status to analgesic agent; Z88.1 Allergy status to other antibiotic agents; Z88.5 Allergy status to narcotic agent; Z88.0 Allergy status to penicillin; Z88.2 Allergy status to sulfonamides
CPT/HCPCS: 96366 ×3; 96372 ×3; 96368; 96365; 99285; 36415; 94760 ×2; 93005; 93306; 97530; 97162; 97535; 97166; 83880; 80053; 80048; 83735; 84484; 85025 ×2; 85610; 85730; 81001; 87086; 87636; 71046; G0378 ×3; J0696 ×3; J3480; J1644 ×3

== ENCOUNTER → 2023-03-03 | Outpatient (CLI) | payer MEDICARE ==
[2023-03-03 11:01] LABS: Appearance,Urine Cloudy (Clear); Bacteria,Urine Moderate /hpf; Bilirubin,Urine Negative (Negative); Blood,Urine Negative (Negative); Color,Urine Yellow; Glucose,Urine (UA) Negative (Negative); Ketones,Urine Negative (Negative); Leukocyte Esterase,Urine Large (Negative); Mucus,Urine Few /hpf; Nitrite,Urine Positive (Negative); Protein,Urine Trace (Negative); Specific Gravity,Urine 1.014 (1.001-1.035); Squamous Epithelial Cell,Urine 10 /hpf (0-4); Urobilinogen,Urine <2.0 mg/dL (<2.0); WBC,Urine >182 /hpf (0-5)
[2023-03-03 16:52] LABS: African American GFR (CKD) 94.8 (60.0-200.0); Albumin 4.2 g/dL (3.8-4.9); Albumin/Globulin Ratio 1.75 (1.60-3.17); Anion Gap 12.6 mmol/L (10.00-18.00); BUN/Creat Ratio 16.71 Ratio (12.00-20.00); Blood Urea Nitrogen 11.7 mg/dL (9.0-27.0); Calcium 10.1 mg/dL (8.7-10.3); Carbon Dioxide 28.4 mmol/L (20.0-27.5); Globulin 2.4 g/dL (1.6-3.3); Non-African American GFR(CKD) 81.8 (60.0-200.0); Potassium 2.9 mmol/L (3.5-5.5); Total Bilirubin 0.7 mg/dL (0.30-1.20); Total Protein 6.6 g/dL (6.2-8.2)
== END | disposition home or self-care (01) ==
LOC: LABWHC1 09:11
PROVIDERS: ATTEND Physician Assistant
DX: R82.90 Unspecified abnormal findings in urine (principal); E87.6 Hypokalemia; I10 Essential (primary) hypertension
CPT/HCPCS: 36415; 80053; 81001; 87086

== ENCOUNTER → 2023-07-30 | Outpatient (CLI) | payer MEDICARE ==
--- NOTE | 2023-07-30 16:11 | XR ---
EXAMINATION TYPE: XR tibia fibula LT DATE OF EXAM: 07/30/2023 COMPARISON: NONE HISTORY: Pain TECHNIQUE: Two views are submitted. FINDINGS: The osseous structures are intact. Diffuse osteopenia with moderate to severe narrowing of the medial compartment and severe narrowing of the patellofemoral compartment. Marginal spurring. IMPRESSION: 1. Diffuse osteopenia with moderate to severe osteoarthritis.
== END | disposition home or self-care (01) ==
LOC: RADXRYALE 14:53
PROVIDERS: ATTEND Family Medicine
DX: M17.12 Unilateral primary osteoarthritis, left knee (principal); M85.862 Other specified disorders of bone density and structure, left lower leg

== ENCOUNTER 2023-08-25 13:00 | Inpatient (IN) | payer MEDICARE ==
--- NOTE | 2023-08-25 13:14 | ED ---
General Adult HPI - General Stated complaint: fall Time Seen by Provider: 08/25/23 13:05 Source: patient, family, EMS, RN notes reviewed Mode of arrival: EMS Limitations: physical limitation - History of Present Illness Initial comments: 82-year-old female sent emergency Department with chief complaint of fall. Patient presented via EMS. Patient states that she turned quickly states that she had a mechanical fall. Patient does complain of head neck, right hip pain and lower back pain. Patient denies any blood thinners or chest pain no loss conscious. - Related Data Home Medications Medication Instructions Recorded Confirmed Felodipine [Plendil] 10 mg PO DAILY 01/24/16 01/28/23 Levothyroxine Sodium [Synthroid] 50 mcg PO DAILY 01/24/16 01/28/23 Venlafaxine HCl [Effexor] 150 mg PO DAILY 01/24/16 01/28/23 Omeprazole 40 mg PO DAILY 12/09/17 01/28/23 Atorvastatin [Lipitor] 40 mg PO HS 04/18/19 01/28/23 Tolterodine Tartrate [Detrol LA] 4 mg PO DAILY 04/18/19 01/28/23 Carbidopa-Levodopa 10-100 mg 1 tab PO QID 01/28/23 01/28/23 [Sinemet 10-100 mg] Allergies Allergy/AdvReac Type Severity Reaction Status Date / Time azithromycin [From Zithromax] Allergy Rash/Hives Verified 01/28/23 09:22 celecoxib [From Celebrex] Allergy Unknown Verified 01/28/23 09:22 Penicillins Allergy Rash/Hives Verified 01/28/23 09:22 Sulfa (Sulfonamide Allergy Unknown Verified 01/28/23 09:22 Antibiotics) ciprofloxacin [From Cipro] AdvReac Unknown Verified 01/28/23 09:22 nitrofurantoin AdvReac Unknown Verified 01/28/23 09:22 [From Macrobid] tramadol HCl [From Ultram] AdvReac stomach Verified 01/28/23 09:22 upset Review of Systems ROS Statement: Those systems with pertinent positive or pertinent negative responses have been documented in the HPI. ROS Other: All systems not noted in ROS Statement are negative. Past Medical History Past Medical History: GERD/Reflux, Hyperlipidemia, Hypertension, Memory Impairment, Osteoarthritis (OA), Skin Disorder, Thyroid Disorder Additional Past Medical History / Comment(s): hx. kidney stones,UTI, constipation,INCONT OF URINE KWAN A PAD, MIGRAINES, PT STATED YEARS AGO A DR TOLD HER SHE HAD "COLITIS" History of Any Multi-Drug Resistant Organisms: ESBL Date of last positivie culture/infection: 06/25/17 MDRO Source:: urine Past Surgical History: Appendectomy, Back Surgery, Bowel Resection, Cholecystectomy, Heart Catheterization With Stent, Hysterectomy Additional Past Surgical History / Comment(s): lower back disk fusion Past Anesthesia/Blood Transfusion Reactions: Motion Sickness Date of Last Stent Placement:: 2000 Past Psychological History: Anxiety, Depression Smoking Status: Never smoker Past Alcohol Use History: None Reported Past Drug Use History: None Reported - Past Family History Mother History Unknown: Yes Family Medical History: Hypertension Father History Unknown: Yes Family Medical History: Hypertension General Exam Limitations: no limitations General appearance: alert, in no apparent distress Head exam: Present: atraumatic, normocephalic, normal inspection Eye exam: Present: normal appearance, PERRL, EOMI. Absent: scleral icterus, conjunctival injection, periorbital swelling ENT exam: Present: normal exam, normal oropharynx, mucous membranes moist Neck exam: Present: normal inspection, tenderness. Absent: meningismus, full ROM (Patient in towel collar as she refuses c-collar), lymphadenopathy Respiratory exam: Present: normal lung sounds bilaterally. Absent: respiratory distress, wheezes, rales, rhonchi, stridor Cardiovascular Exam: Present: regular rate, normal rhythm, normal heart sounds. Absent: systolic murmur, diastolic murmur, rubs, gallop, clicks GI/Abdominal exam: Present: soft, normal bowel sounds. Absent: distended, tenderness, guarding, rebound, rigid Extremities exam: Present: other (Right hip there is tenderness of palpation, there is some shortening, external rotation noted, neurovascular intact) Back exam: Present: full ROM, tenderness Neurological exam: Present: alert, CN II-XII intact, reflexes normal. Absent: motor sensory deficit Course Vital Signs 08/25/23 13:07 Temperature 98 F Pulse Rate 81 Respiratory 18 Rate Blood Pressure 118/78 O2 Sat by Pulse 97 Oximetry Medical Decision Making - Medical Decision Making Was pt. sent in by a medical professional or institution (, PA, SWATCH MAKER, urgent care, hospital, or [facility]...) When possible be specific @ -[No] Did you speak to anyone other than the patient for history (EMS, parent, family, police, friend...)? What history was obtained from this source @ -[No] Did you review nursing and triage notes (agree or disagree)? Why? @ -[I reviewed and agree with nursing and triage notes] Were old charts reviewed (outside hosp., previous admission, EMS record, old EKG, old radiological studies, urgent care reports/EKG's, [facility] records)? Report findings @ -[No old charts were reviewed] Differential Diagnosis (chest pain, altered mental status, abdominal pain women, abdominal pain men, vaginal bleeding, weakness, fever, dyspnea, syncope, headache, dizziness, GI bleed, back pain, seizure, CVA, palpatations, mental health, musculoskeletal)? @ -[fall, weakness, hip fracture EKG interpreted by me (3pts min.). @ -[As above] X-rays interpreted by me (1pt min.). @ -[X-rays chest x-ray no acute abnormality, x-ray lumbar spine shows stable hardware, no acute fracture x-ray right hip and AP pelvis no acute fracture dislocation] CT interpreted by me (1pt min.). @ -[CT brain, C-spine no acute intracranial hemorrhage, cervical fracture, CT hip no acute fracture] U/S interpreted by me (1pt. min.). @ -[None done] What testing was considered but not performed or refused? (CT, X-rays, U/S, labs)? Why? @ -[None] What meds were considered but not given or refused? Why? @ -[None] Did you discuss the management of the patient with other professionals (professionals i.e. , PA, SWATCH MAKER, lab, RT, psych nurse, high school social studies teacher, pressure washer, teacher, staff readiness officer, case making machine operator)? Give summary @ -[Dr anguiano for admisssion for hypokalemia and hyponatremia] Was smoking cessation discussed for >3mins.? @ -[No] Was critical care preformed (if so, how long)? @ -[No] Were there social determinants of health that impacted care today? How? (Homelessness, low income, unemployed, alcoholism, drug addiction, transportation, low edu. Level, literacy, decrease access to med. care, penitentiary, rehab)? @ -[No] Was there de-escalation of care discussed even if they declined (Discuss DNR or withdrawal of care, Hospice)? DNR status @ -[No] What co-morbidities impacted this encounter? (DM, HTN, Smoking, COPD, CAD, Cancer, CVA, ARF, Chemo, Hep., AIDS, mental health diagnosis, sleep apnea, morbid obesity)? @ -[None] Was patient admitted / discharged? Hospital course, mention meds given and route, prescriptions, significant lab abnormalities, going to OR and other pertinent info. @ -[admitted for hypokalemia and hyponatremia no fractures ] Undiagnosed new problem with uncertain prognosis? @ -[No] Drug Therapy requiring intensive monitoring for toxicity (Heparin, Nitro, Insulin, Cardizem)? @ -[No] Were any procedures done? @ -[No] Diagnosis/symptom? @ -[hypokalemia, hyponatremia] Acute, or Chronic, or Acute on Chronic? @ -[acute] Uncomplicated (without systemic symptoms) or Complicated (systemic symptoms)? @ -[complicated] Side effects of treatment? @ -[No] Exacerbation, Progression, or Severe Exacerbation? @ -[No] Poses a threat to life or bodily function? How? (Chest pain, [place], [place], pneumonia, PE, COPD, DKA, ARF, appy, cholecystitis, CVA, Diverticulitis, Homicidal, Suicidal, threat to staff... and all critical care pts) @ -[No] - Lab Data Result diagrams: 08/25/23 13:18 08/25/23 13:18 Lab Results 08/25/23 08/25/23 08/25/23 Range/Units 13:18 13:18 13:18 WBC 7.7 (3.8-10.6) k/uL RBC 4.78 (3.80-5.40) m/uL Hgb 15.3 (11.4-16.0) gm/dL Hct 42.2 (34.0-46.0) % MCV 88.3 (80.0-100.0) fL MCH 32.1 (25.0-35.0) pg MCHC 36.3 (31.0-37.0) g/dL RDW 12.7 (11.5-15.5) % Plt Count 256 (150-450) k/uL MPV 7.8 Neutrophils % (Manual) 79 % Lymphocytes % (Manual) 11 % Monocytes % (Manual) 6 % Eosinophils % (Manual) 3 % Basophils % (Manual) 1 % Neutrophils # (Manual) 6.08 (1.3-7.7) k/uL Lymphocytes # (Manual) 0.85 L (1.0-4.8) k/uL Monocytes # (Manual) 0.46 (0-1.0) k/uL Eosinophils # (Manual) 0.23 (0-0.7) k/uL Basophils # (Manual) 0.08 (0-0.2) k/uL Nucleated RBCs 0 (0-0) /100 WBC Manual Slide Review Performed RBC Morphology Normal PT 10.2 (9.0-12.0) sec INR 1.0 (<1.2) APTT 23.3 (22.0-30.0) sec Sodium (137-145) mmol/L Potassium (3.5-5.1) mmol/L Chloride (98-107) mmol/L Carbon Dioxide (22-30) mmol/L Anion Gap mmol/L BUN (7-17) mg/dL Creatinine (0.52-1.04) mg/dL Est GFR (CKD-EPI)AfAm (>60 ml/min/1.73 sqM) Est GFR (CKD-EPI)NonAf (>60 ml/min/1.73 sqM) Glucose (74-99) mg/dL Calcium (8.4-10.2) mg/dL Total Bilirubin (0.2-1.3) mg/dL AST (14-36) U/L ALT (4-34) U/L Alkaline Phosphatase (38-126) U/L Total Protein (6.3-8.2) g/dL Albumin (3.5-5.0) g/dL Urine Color Colorless Urine Appearance Clear (Clear) Urine pH 7.5 (5.0-8.0) Ur Specific [place] 1.004 (1.001-1.035) Urine Protein Negative (Negative) Urine Glucose (UA) Negative (Negative) Urine Ketones Negative (Negative) Urine Blood Negative (Negative) Urine Nitrite Negative (Negative) Urine Bilirubin Negative (Negative) Urine Urobilinogen <2.0 (<2.0) mg/dL Ur Leukocyte Esterase Small H (Negative) Urine RBC <1 (0-5) /hpf Urine WBC 8 H (0-5) /hpf Ur Squamous Epith Cells <1 (0-4) /hpf Urine Bacteria Many H (None) /hpf Hyaline Casts 1 (0-2) /lpf 08/25/23 Range/Units 13:18 WBC (3.8-10.6) k/uL RBC (3.80-5.40) m/uL Hgb (11.4-16.0) gm/dL Hct (34.0-46.0) % MCV (80.0-100.0) fL MCH (25.0-35.0) pg MCHC (31.0-37.0) g/dL RDW (11.5-15.5) % Plt Count (150-450) k/uL MPV Neutrophils % (Manual) % Lymphocytes % (Manual) % Monocytes % (Manual) % Eosinophils % (Manual) % Basophils % (Manual) % Neutrophils # (Manual) (1.3-7.7) k/uL Lymphocytes # (Manual) (1.0-4.8) k/uL Monocytes # (Manual) (0-1.0) k/uL Eosinophils # (Manual) (0-0.7) k/uL Basophils # (Manual) (0-0.2) k/uL Nucleated RBCs (0-0) /100 WBC Manual Slide Review RBC Morphology PT (9.0-12.0) sec INR (<1.2) APTT (22.0-30.0) sec Sodium 128 L (137-145) mmol/L Potassium 2.7 L* (3.5-5.1) mmol/L Chloride 87 L (98-107) mmol/L Carbon Dioxide 30 (22-30) mmol/L Anion Gap 11 mmol/L BUN 14 (7-17) mg/dL Creatinine 0.68 (0.52-1.04) mg/dL Est GFR (CKD-EPI)AfAm >90 (>60 ml/min/1.73 sqM) Est GFR (CKD-EPI)NonAf 83 (>60 ml/min/1.73 sqM) Glucose 168 H (74-99) mg/dL Calcium 9.4 (8.4-10.2) mg/dL Total Bilirubin 0.7 (0.2-1.3) mg/dL AST 34 (14-36) U/L ALT 18 (4-34) U/L Alkaline Phosphatase 124 (38-126) U/L Total Protein 6.7 (6.3-8.2) g/dL Albumin 3.9 (3.5-5.0) g/dL Urine Color Urine Appearance (Clear) Urine pH (5.0-8.0) Ur Specific [place] (1.001-1.035) Urine Protein (Negative) Urine Glucose (UA) (Negative) Urine Ketones (Negative) Urine Blood (Negative) Urine Nitrite (Negative) Urine Bilirubin (Negative) Urine Urobilinogen (<2.0) mg/dL Ur Leukocyte Esterase (Negative) Urine RBC (0-5) /hpf Urine WBC (0-5) /hpf Ur Squamous Epith Cells (0-4) /hpf Urine Bacteria (None) /hpf Hyaline Casts (0-2) /lpf - EKG Data -: EKG Interpreted by Me EKG Comments: EKG performed at 14:13 sinus rhythm with rate of 68 W[place] 180 QRS 98 QT /QTC 421/438 Disposition Clinical Impression: Fall, Hypokalemia, Hyponatremia Disposition: ADMITTED IP TO THIS HOSP Condition: Fair Referrals: Jan Vieira DO [Primary Care Provider] - 1-2 days Time of Disposition: 15:53
[2023-08-25 13:42] LABS: Appearance,Urine Clear (Clear); Bacteria,Urine Many /hpf; Bilirubin,Urine Negative (Negative); Blood,Urine Negative (Negative); Color,Urine Colorless; Glucose,Urine (UA) Negative (Negative); Hyaline Casts,Urine 1 /lpf (0-2); Ketones,Urine Negative (Negative); Leukocyte Esterase,Urine Small (Negative); Nitrite,Urine Negative (Negative); PH, Urine 7.5 (5.0-8.0); Protein,Urine Negative (Negative); RBC,Urine <1 /hpf (0-5); Specific Gravity,Urine 1.004 (1.001-1.035); Squamous Epithelial Cell,Urine <1 /hpf (0-4); Urobilinogen,Urine <2.0 mg/dL (<2.0); WBC,Urine 8 /hpf (0-5)
[2023-08-25 13:54] LABS: ALT 18 U/L (4-34); AST 34 U/L (14-36); African American GFR (CKD) >90 (>60 ml/min/1.73 sqM); Albumin 3.9 g/dL (3.5-5.0); Alkaline Phosphatase 124 U/L (38-126); Anion Gap 11 mmol/L; Blood Urea Nitrogen 14 mg/dL (7-17); Calcium 9.4 mg/dL (8.4-10.2); Carbon Dioxide 30 mmol/L (22-30); Chloride 87 mmol/L (98-107); Glucose 168 mg/dL (74-99); Non-African American GFR(CKD) 83 (>60 ml/min/1.73 sqM); Sodium 128 mmol/L (137-145); Total Bilirubin 0.7 mg/dL (0.2-1.3); Total Protein 6.7 g/dL (6.3-8.2)
[2023-08-25 13:55] LABS: HCT 42.2 % (34.0-46.0); HGB 15.3 gm/dL (11.4-16.0); MCH 32.1 pg (25.0-35.0); MCHC 36.3 g/dL (31.0-37.0); MCV 88.3 fL (80.0-100.0); Mean Platelet Volume 7.8; Platelet Count 256 k/uL (150-450); RBC 4.78 m/uL (3.80-5.40); RDW 12.7 % (11.5-15.5); WBC 7.7 k/uL (3.8-10.6)
[2023-08-25 13:59] LABS: Partial Thromboplastin Time 23.3 sec (22.0-30.0); Prothrombin Time 10.2 sec (9.0-12.0)
--- NOTE | 2023-08-25 14:00 | XR ---
EXAMINATION TYPE: XR chest 1V DATE OF EXAM: 08/25/2023 1:53 PM COMPARISON: Chest radiographs from 01/28/2023 TECHNIQUE: XR chest 1V Frontal view of the chest. CLINICAL INDICATION:Female, 82 years old with history of pain; FINDINGS: Lungs/Pleura: Low lung volumes are present. There is no evidence of pleural effusion, focal consolida tion, or pneumothorax. Chronic senescent parenchymal change. Pulmonary vascularity: Unremarkable. Heart/mediastinum: Cardiomediastinal silhouette is unremarkable. Atherosclerotic calcifications are seen in the aorta. Musculoskeletal: No acute osseous pathology. IMPRESSION: Low lung volumes without evidence for acute process.
--- NOTE | 2023-08-25 14:18 | CT ---
EXAMINATION TYPE: CT brain cspine wo con CT DLP: 1308.6 mGycm, Automated exposure control for dose reduction was used. DATE OF EXAM: 08/25/2023 2:08 PM COMPARISON: 04/18/2019. CLINICAL INDICATION:Female, 82 years old with history of pain; fall TECHNIQUE: Brain: Multiple axial CT images of the brain were obtained without IV contrast. Cspine: Axial CT images from the skull base to the inferior aspect of T2 we obtained without intraven ous contrast. Coronal and sagittal reformatted images were also reviewed. FINDINGS: Brain: Extra-axial spaces: No abnormal extra-axial fluid collections. Ventricular system: Within normal limits Cerebral parenchyma: No acute intraparenchymal hemorrhage or mass effect. The garg-white junction is well differentiated. Cerebellum: Unremarkable. Mass effect: No evidence of midline shift. Intracranial vasculature: Atherosclerotic calcifications of the intracranial vessels. Soft tissues: Normal. Calvarium/osseous structures: No depressed skull fracture. Paranasal sinuses and mastoid air cells: Clear. Visualized orbits: Bilaterally aphakia. Cervical spine: Fracture: None. Osseous structures: Multilevel degenerative disc disease changes with endplate spurring and disc oste ophyte complex's. Vertebral alignment: Within normal limits. Spinal canal/Neural Foramina: Disc osteophyte complexes at C6-C7 with at least mild spinal canal sten osis. Facet joint uncovertebral joint arthropathy scattered throughout the cervical spine with varyin g degrees of neural foraminal stenosis. Neck soft tissues: Prevertebral soft tissues are within normal limits. Other: The airway is patent. The lung apices are clear. IMPRESSION: 1. No acute intracranial process. 2. No evidence of cervical spine fracture. 3. Mild multilevel degenerative disc disease.
--- NOTE | 2023-08-25 14:24 | XR ---
EXAMINATION TYPE: XR Hip RT and AP Pelvis DATE OF EXAM: 08/25/2023 COMPARISON: NONE HISTORY: Pain TECHNIQUE: A single AP view of the pelvis is obtained. Two views of the right hip are obtained. FINDINGS: There is no acute fracture/dislocation evident in the pelvis. The hip and sacroiliac join ts appear symmetric and unremarkable. The overlying soft tissue appears unremarkable. Two views of right hip show no acute fracture or dislocation. There is bilateral hypertrophic arthrop athy of the hips. Calcifications in the pelvis are likely phleboliths. Postsurgical change lower lumb ar spine. Hypertrophic arthropathy of the SI joints. IMPRESSION: 1. No definite acute fracture or dislocation. If there is high clinical concern for occult fracture o r difficulty with weightbearing correlate with CT scan.
--- NOTE | 2023-08-25 14:31 | XR ---
EXAMINATION TYPE: XR lumbar spine 2 or 3V DATE OF EXAM: 08/25/2023 CLINICAL HISTORY: pain TECHNIQUE: Three views of the lumbar spine are submitted. COMPARISON: CT abdomen 11/17/2018, MRI lumbar spine 09/08/2018 FINDINGS: There are 5 lumbar type vertebral bodies identified. Postsurgical changes from lumbar fusion with williams ateral pedicular screws and rods involving L2-L5. Disc spacers identified at L4-L5. Hardware appears intact. No acute fracture. Mild levocurvature of the lumbar spine. Multilevel disc space narrowing wi th endplate sclerosis and anterior osteophytosis. Multilevel facet arthropathy. The overlying soft t issue appears unremarkable. IMPRESSION: 1. No acute fracture. 2. Postsurgical changes from posterior lumbar fusion. Hardware appears intact. 3. Mild multilevel degenerative disc disease.
[2023-08-25 14:35] LABS: Potassium 2.7 mmol/L (3.5-5.1)
[2023-08-25 14:44] LABS: Basophils # (M) 0.08 k/uL (0-0.2); Eosinophils # (M) 0.23 k/uL (0-0.7); Lymphocytes # (M) 0.85 k/uL (1.0-4.8); Monocytes # (M) 0.46 k/uL (0-1.0); Neutrophils # (M) 6.08 k/uL (1.3-7.7); Neutrophils % (M) 79 %; Nucleated Red Blood Cells 0 /100 WBC (0-0); Total Cells Counted 100
[2023-08-25 14:45] LABS: RBC Morphology Normal
--- NOTE | 2023-08-25 15:33 | CT ---
EXAMINATION TYPE: CT hip RT wo con CT DLP: 410 mGycm, Automated exposure control for dose reduction was used. DATE OF EXAM: 08/25/2023 3:15 PM COMPARISON: Extremity radiograph same day. CLINICAL INDICATION:Female, 82 years old with history of pain; PHH, right hip pain TECHNIQUE: Axial images were obtained of the CT hip RT wo con, Additional coronal and sagittal reform atted images and soft tissue and bone window were obtained for review. 3-D reconstruction was created on a separate workstation. Contrast used: mL of , (None if empty) Oral contrast used: (None if empty) FINDINGS: Mild degeneration changes of the right hip with osteophyte formation and joint space narrow ing. There is no evidence of fracture, subluxation, or dislocation. No significant soft tissue swell ing or joint effusion is identified. No focal muscular atrophy or edema is identified. No radiopaque foreign body identified. IMPRESSION: 1. No evidence of fracture. If there remains concern, a MRI may be of benefit to evaluate for bony e alanna. 2. Mild right hip osteoarthrosis.
[2023-08-25] MEDS ORDERED: NALOXONE 0.4 MG/ML 1 ML VIAL IV PRN (15:51)
[2023-08-25] MEDS ORDERED: Potassium Replacement Protocol 1 EACH MISC MISCELLANE PRN (15:52)
--- NOTE | 2023-08-25 16:53 | P.HPIM ---
History of Present Illness H&P Date: 08/25/23 History of Presenting Illness: Patient is a very pleasant 82-year-old female with a past medical history of CAD with stents, hypertension, hyperlipidemia, Alzheimer's dementia, and hypothyroidism. She presented to the emergency department with a chief complaint of mechanical fall. Patient reports she has been getting pain/charley horses in the back of her calf and when she turned she got a charley horse in her leg and fell to the floor. Patient reports landing on her right side resulting in pain to right hip, lower back, head and neck. Patient denies having any dizziness/lightheadedness, changes in vision or hearing, chest pain or palpitations, shortness of breath, or experiencing any numbness/tingling/weakness/swelling in her extremities. Patient does report that she recently had a bout of increased lower extremity edema and was placed back on Lasix in addition to chlorthalidone by her PCP. Patient underwent full evaluation in the emergency department. CT head completed negative for acute intercranial process. CT cervical spine showing mild multilevel degenerative disc disease but no evidence of cervical spinal fracture. Chest x-ray negative for acute cardiopulmonary process. X-ray right hip negative for acute fracture or dislocation. X-ray lumbar spine negative for acute fractures showing postsurgical changes from posterior lumbar fusion with reports of hardware appears to be intact. EKG completed showing normal sinus rhythm at [address] right hip showing mild right hip osteoarthrosis however no reported evidence of fracture. Labs were completed and reviewed. CBC and coagulation profile were unremarkable. BMP showing hyponatremia with sodium of 128, hypokalemia with potassium of 2.7, and hypochloremia with chloride of 87. Review of systems: Pertinent positives and negatives as discussed in HPI, a complete review of systems was performed and all other systems are negative. Physical exam: Vital signs reviewed and stable. General: Nontoxic, no distress and appears stated age. Derm: Skin warm and dry, normal coloration for ethnicity. Head: Atraumatic, normocephalic and symmetric. Eyes: EOMs intact, no lid lag, and anicteric sclera Mouth: no lip lesions, mucus membranes moist Cardiovascular: regular rate and rhythm with normal S1S2, systolic murmur, positive posterior tibial pulses bilaterally, and cap refill < 2 seconds. Lungs: Respirations even, regular, and unlabored on room air. Lungs CTA bilaterally, no rhonchi, no rales, no wheezing, and no accessory muscle usage. Abdominal: soft, nontender to palpation, no guarding, no appreciable organomegaly Ext: ROM intact. No gross muscle atrophy, no edema, no contractures Neuro: Speech clear, face symmetrical and CN II-XII grossly intact with no noted focal neuro deficits Psych: Alert and oriented to person, place, time, and situation. Appropriate and pleasant affect. Assessment and Plan of Care: Hypokalemia Hypochloremic Hyponatremia Mechanical fall with generalized weakness -Electrolyte imbalances likely secondary to diuretic use as patient was on home chlorthalidone 25 mg daily and recently placed back on Lasix 20 mg daily. -We will hold diuretics and provide patient with gentle IV fluid hydration with 0.9% normal saline at 75 mL's per hour. -Electrolytes being replaced and patient to remain on telemetry monitoring throughout this process. -Consult placed to PT/OT for evaluation secondary to fall. -Once electrolyte imbalances have been corrected and patient has been evaluated by physical and occupational therapy will plan for likely discharge home. Lasix to be discontinued and patient to be discharged home only on the chlorthalidone. History of CAD with stents Hypertension Hyperlipidemia Alzheimer's dementia Hypothyroidism -Patient to continue daily medication regimen with amlodipine 10 mg daily, atorvastatin 40 mg nightly, carbidopa/levodopa 35601 mg every 6 hours, levothyroxine 50 g daily, and Effexor 150 mg daily. Data and imaging reviewed: -CT head completed negative for acute intercranial process. -CT cervical spine showing mild multilevel degenerative disc disease but no evidence of cervical spinal fracture. -Chest x-ray negative for acute cardiopulmonary process. -X-ray right hip negative for acute fracture or dislocation. -X-ray lumbar spine negative for acute fractures showing postsurgical changes from posterior lumbar fusion with reports of hardware appears to be intact. -EKG completed showing normal sinus rhythm at 68 bpm. -CT right hip showing mild right hip osteoarthrosis however no reported evidence of fracture. -Labs were completed and reviewed. CBC and coagulation profile were unremarkable. BMP showing hyponatremia with sodium of 128, hypokalemia with potassium of 2.7, and hypochloremia with chloride of 87. The patient is admitted with an anticipated less than 2 midnight stay for evaluation of fall and electrolyte imbalances. CODE STATUS: Full code DVT prophylaxis: Lovenox Discussed with: Patient, patient's family at bedside, and ED provider Anticipated discharge date: Clinical course to determine likely 24-[address]: Home Patient was seen independently by Nurse Practitioner. This document was prepared using [employer] dictation software. Please allow for errors in guidance secretary while rare they do occur. Gerard Swanson NP rendered care for this patient independently, reviewed the findings and plan as documented in the note above. I did not physically speak with or examine the patient on this date. Past Medical History Past Medical History: GERD/Reflux, Hyperlipidemia, Hypertension, Memory Impairment, Osteoarthritis (OA), Skin Disorder, Thyroid Disorder Additional Past Medical History / Comment(s): hx. kidney stones,UTI, constipation,INCONT OF URINE KWAN A PAD, MIGRAINES, PT STATED YEARS AGO A DR TOLD HER SHE HAD "COLITIS" History of Any Multi-Drug Resistant Organisms: ESBL Date of last positivie culture/infection: 06/25/17 MDRO Source:: urine Past Surgical History: Appendectomy, Back Surgery, Bowel Resection, Cholecystectomy, Heart Catheterization With Stent, Hysterectomy Additional Past Surgical History / Comment(s): lower back disk fusion Past Anesthesia/Blood Transfusion Reactions: Motion Sickness Date of Last Stent Placement:: 2000 Past Psychological History: Anxiety, Depression Smoking Status: Never smoker Past Alcohol Use History: None Reported Past Drug Use History: None Reported - Past Family History Mother History Unknown: Yes Family Medical History: Hypertension Father History Unknown: Yes Family Medical History: Hypertension Medications and Allergies Home Medications Medication Instructions Recorded Confirmed Type Felodipine [Plendil] 10 mg PO DAILY 01/24/16 08/25/23 History Levothyroxine Sodium [Synthroid] 50 mcg PO DAILY 01/24/16 08/25/23 History Venlafaxine HCl [Effexor] 150 mg PO DAILY 01/24/16 08/25/23 History Omeprazole 40 mg PO DAILY 12/09/17 08/25/23 History Atorvastatin [Lipitor] 40 mg PO HS 04/18/19 08/25/23 History Tolterodine Tartrate [Detrol LA] 4 mg PO DAILY 04/18/19 08/25/23 History Carbidopa-Levodopa 10-100 mg 1 tab PO QID 01/28/23 08/25/23 History [Sinemet 10-100 mg] Chlorthalidone 25 mg PO DAILY 08/25/23 08/25/23 History Furosemide [Lasix] 20 mg PO DAILY 08/25/23 08/25/23 History Potassium Chloride [Klor-Con M20] 20 meq PO BID 08/25/23 08/25/23 History Sulfamethoxazole/Trimethoprim 1 tab PO DIRECTED 08/25/23 08/25/23 History [Bactrim DS 800-160 mg] Allergies Allergy/AdvReac Type Severity Reaction Status Date / Time azithromycin [From Zithromax] Allergy Rash/Hives Verified 08/25/23 17:32 celecoxib [From Celebrex] Allergy Unknown Verified 08/25/23 17:32 Penicillins Allergy Rash/Hives Verified 08/25/23 17:32 Sulfa (Sulfonamide Allergy Unknown Verified 08/25/23 17:32 Antibiotics) ciprofloxacin [From Cipro] AdvReac Unknown Verified 08/25/23 17:32 nitrofurantoin AdvReac Unknown Verified 08/25/23 17:32 [From Macrobid] tramadol HCl [From Ultram] AdvReac stomach Verified 08/25/23 17:32 upset Physical Exam Vitals: Vital Signs Temp Pulse Resp BP Pulse Ox 08/25/23 13:07 98 F 81 18 118/78 97 Intake and Output 08/25/23 08/25/23 08/25/23 06:59 14:59 22:59 Other: Weight 68.039 kg Results CBC & Chem 7: 08/26/23 09:10 08/26/23 09:10 Labs: Abnormal Lab Results - Last 24 Hours (Table) 08/25/23 08/25/23 08/25/23 Range/Units 13:18 13:18 13:18 Lymphocytes # (Manual) 0.85 L (1.0-4.8) k/uL Sodium 128 L (137-145) mmol/L Potassium 2.7 L* (3.5-5.1) mmol/L Chloride 87 L (98-107) mmol/L Glucose 168 H (74-99) mg/dL Ur Leukocyte Esterase Small H (Negative) Urine WBC 8 H (0-5) /hpf Urine Bacteria Many H (None) /hpf
[2023-08-25] MEDS: POTASSIUM CHLORIDE ER 20 MEQ TAB.ER PO SCH ×3 (17:24→20:56)
[2023-08-25] MEDS: POTASSIUM CHLORIDE 10 MEQ in WATER FOR INJECTION 1 100ML.BAG IVPB SCH ×5 (17:24→23:47)
[2023-08-25] MEDS: CARBIDOPA-LEVODOPA 10-100 MG 1 EACH TAB PO SCH ×2 (18:30→22:06)
[2023-08-25] MEDS: SODIUM CHLORIDE 0.9% 1,000 ML IV SCH (18:34)
[2023-08-25] MEDS: ATORVASTATIN 40 MG TAB PO SCH (22:07)
[2023-08-26] MEDS: POTASSIUM CHLORIDE 10 MEQ in WATER FOR INJECTION 1 100ML.BAG IVPB SCH (00:56)
[2023-08-26] MEDS: SODIUM CHLORIDE 0.9% 1,000 ML IV SCH ×2 (05:20→11:45)
[2023-08-26] MEDS: LEVOTHYROXINE 50 MCG TAB PO SCH (06:30)
[2023-08-26] MEDS: PANTOPRAZOLE 40 MG TABLET PO SCH (06:30)
[2023-08-26] MEDS: ENOXAPARIN 40 MG/0.4 ML SYRINGE SQ SCH (08:25)
[2023-08-26] MEDS: CARBIDOPA-LEVODOPA 10-100 MG 1 EACH TAB PO SCH ×4 (08:25→21:51)
[2023-08-26] MEDS: OXYBUTYNIN 10 MG TAB.ER.24 PO SCH (08:25)
[2023-08-26] MEDS: amLODIPine 10 MG TAB PO SCH (08:25)
[2023-08-26] MEDS: VENLAFAXINE HCL 75 MG TAB PO SCH (08:25)
[2023-08-26 09:59] LABS: African American GFR (CKD) >90 (>60 ml/min/1.73 sqM); Anion Gap 9 mmol/L; Blood Urea Nitrogen 9 mg/dL (7-17); Calcium 8.9 mg/dL (8.4-10.2); Carbon Dioxide 26 mmol/L (22-30); Chloride 95 mmol/L (98-107); Glucose 181 mg/dL (74-99); Magnesium 1.9 mg/dL (1.6-2.3); Non-African American GFR(CKD) 85 (>60 ml/min/1.73 sqM); Potassium 3.3 mmol/L (3.5-5.1); Sodium 130 mmol/L (137-145)
[2023-08-26] MEDS: POTASSIUM CHLORIDE ER 20 MEQ TAB.ER PO SCH ×2 (10:28→11:45)
[2023-08-26 15:36] LABS: HCT 38.9 % (37.2-46.3); HGB 13.6 d/dL (12.0-15.0); MCH 31.4 pg (27.0-32.0); MCV 89.8 FL (80.0-97.0); Mean Platelet Volume 10.8 FL (9.5-12.2); NRBC Per 100 WBC 0 X 10*3/uL (0.00-0.01); Platelet Count 234 X 10*3/uL (140-440); RBC 4.33 X 10*6/uL (4.10-5.20); RDW 13.2 % (11.5-14.5); WBC 6.92 X 10*3/uL (4.50-10.00)
--- NOTE | 2023-08-26 16:23 | P.PN ---
Subjective Progress Note Date: 08/26/23 Hospital course: Patient is a very pleasant 82-year-old female with a past medical history of CAD with stents, hypertension, hyperlipidemia, Alzheimer's dementia, and hypothyroidism. She presented to the emergency department with a chief complaint of mechanical fall. Patient reports she has been getting pain/charley horses in the back of her calf and when she turned she got a charley horse in her leg and fell to the floor. Patient reports landing on her right side resulting in pain to right hip, lower back, head and neck. Patient denies having any dizziness/lightheadedness, changes in vision or hearing, chest pain or palpitations, shortness of breath, or experiencing any numbness/tingling/weakness/swelling in her extremities. Patient does report that she recently had a bout of increased lower extremity edema and was placed back on Lasix in addition to chlorthalidone by her PCP. Patient underwent full evaluation in the emergency department. CT head completed negative for acute intercranial process. CT cervical spine showing mild multilevel degenerative disc disease but no evidence of cervical spinal fracture. Chest x-ray negative for acute cardiopulmonary process. X-ray right hip negative for acute fracture or dislocation. X-ray lumbar spine negative for acute fractures showing postsurgical changes from posterior lumbar fusion with reports of hardware appears to be intact. EKG completed showing normal sinus rhythm at [address] right hip showing mild right hip osteoarthrosis however no reported evidence of fracture. Labs were completed and reviewed. CBC and coagulation profile were unremarkable. BMP showing hyponatremia with sodium of 128, hypokalemia with potassium of 2.7, and hypochloremia with chloride of 87. Patient admitted under our services with consultation to PT/OT. Patient has been evaluated by physical therapy recommending discharge to rehab, discussed this with social work manager and arrangements are being made at this time. Physical exam: Vital signs reviewed and stable. General: Nontoxic, no distress and appears stated age. Derm: Skin warm and dry, normal coloration for ethnicity. Head: Atraumatic, normocephalic and symmetric. Eyes: EOMs intact, no lid lag, and anicteric sclera Mouth: no lip lesions, mucus membranes moist Cardiovascular: regular rate and rhythm with normal S1S2, systolic murmur, positive posterior tibial pulses bilaterally, and cap refill < 2 seconds. Lungs: Respirations even, regular, and unlabored on room air. Lungs CTA bilaterally, no rhonchi, no rales, no wheezing, and no accessory muscle usage. Abdominal: soft, nontender to palpation, no guarding, no appreciable organomegaly Ext: ROM intact. No gross muscle atrophy, no edema, no contractures Neuro: Speech clear, face symmetrical and CN II-XII grossly intact with no noted focal neuro deficits Psych: Alert and oriented to person, place, time, and situation. Appropriate and pleasant affect. Assessment and Plan of Care: Hypokalemia Hypochloremic Hyponatremia Mechanical fall with generalized weakness -Electrolyte imbalances likely secondary to diuretic use as patient was on home chlorthalidone 25 mg daily and recently placed back on Lasix 20 mg daily. -We will continue to hold diuretics and provide patient with gentle IV fluid hydration with 0.9% normal saline at 75 mL's per hour. -Patient to again received K Dur 40 mEq by mouth every 2 hours 2 doses for replacement of abnormal potassium of 3.3 and we will again repeat morning BMP to follow closely. -Folate levels are elevated at 40 -PT/OT evaluated recommending patient be placed in skilled rehab at discharge. -Once electrolyte abnormalities have been corrected patient may resume chlorthalidone however should avoid taking multiple diuretics such as combinat ion of thiazide and loop diuretics again in the future History of CAD with stents Hypertension Hyperlipidemia Alzheimer's dementia Hypothyroidism -Patient to continue daily medication regimen with amlodipine 10 mg daily, atorvastatin 40 mg nightly, carbidopa/levodopa 86197 mg every 6 hours, levoth yroxine 50 g daily, and Effexor 150 mg daily. Data and imaging reviewed: Morning labs reviewed. Sodium slowly improving from previous 128 up to 130 this morning, chloride increasing from 87 up to 95, and potassium from previous 2.7-3.3. Vital signs reviewed and stable. Blood pressure 124/75, heart rate 62, respiratory rate 14, temp 97.4F, SpO2 96% on room air. CODE STATUS: Full code DVT prophylaxis: Lovenox Discussed with: Patient, RN, physical therapist, and gearcase assembler/social work manager Anticipated discharge date: Likely within the next 24-[address]: SNF Patient was seen independently by Nurse Practitioner. This document was prepared using [employer] dictation software. Please allow for errors in sales development coordinator while rare they do occur. Gerard Swanson NP rendered care for this patient independently, reviewed the findings and plan as documented in the note above. I did not physically speak with or examine the patient on this date. Objective - Vital Signs Vital signs: Vital Signs Temp 97.4 F L 08/26/23 06:44 Pulse 62 08/26/23 09:10 Resp 14 08/26/23 06:44 BP 124/75 08/26/23 06:44 Pulse Ox 96 08/26/23 06:44 FiO2 Intake & Output 08/25/23 08/26/23 08/26/23 18:59 06:59 18:59 Intake Total 250 Output Total 210 Balance 250 -210 Weight 68.039 kg Intake: Oral 250 Output: Urine 210 Other: Voiding Method Diaper External Catheter Incontinent External Catheter - Labs CBC & Chem 7: 08/26/23 09:10 08/26/23 09:10 Labs: Abnormal Lab Results - Last 24 Hours (Table) 08/25/23 08/25/23 08/25/23 Range/Units 13:18 13:18 13:18 Lymphocytes # (Manual) 0.85 L (1.0-4.8) k/uL Sodium 128 L (137-145) mmol/L Potassium 2.7 L* (3.5-5.1) mmol/L Chloride 87 L (98-107) mmol/L Glucose 168 H (74-99) mg/dL Folate (4.40-31.00) ng/mL Ur Leukocyte Esterase Small H (Negative) Urine WBC 8 H (0-5) /hpf Urine Bacteria Many H (None) /hpf 08/25/23 Range/Units 18:25 Lymphocytes # (Manual) (1.0-4.8) k/uL Sodium (137-145) mmol/L Potassium (3.5-5.1) mmol/L Chloride (98-107) mmol/L Glucose (74-99) mg/dL Folate 40.00 H (4.40-31.00) ng/mL Ur Leukocyte Esterase (Negative) Urine WBC (0-5) /hpf Urine Bacteria (None) /hpf
[2023-08-26] MEDS: ATORVASTATIN 40 MG TAB PO SCH (21:51)
[2023-08-26] MEDS ORDERED: ACETAMINOPHEN TAB 325 MG TAB PO PRN (22:03)
[2023-08-27] MEDS: PANTOPRAZOLE 40 MG TABLET PO SCH (05:52)
[2023-08-27] MEDS: LEVOTHYROXINE 50 MCG TAB PO SCH (05:52)
[2023-08-27 07:26] VITALS: PULSE 60
[2023-08-27] MEDS: OXYBUTYNIN 10 MG TAB.ER.24 PO SCH (08:40)
[2023-08-27] MEDS: ENOXAPARIN 40 MG/0.4 ML SYRINGE SQ SCH (08:40)
[2023-08-27] MEDS: amLODIPine 10 MG TAB PO SCH (08:40)
[2023-08-27] MEDS: CARBIDOPA-LEVODOPA 10-100 MG 1 EACH TAB PO SCH ×2 (08:41→13:00)
[2023-08-27] MEDS: VENLAFAXINE HCL 75 MG TAB PO SCH (08:41)
[2023-08-27] MEDS: SODIUM CHLORIDE 0.9% 1,000 ML IV SCH (08:46)
[2023-08-27 11:30] LABS: Blood Urea Nitrogen 8.7 mg/dL (9.0-27.0); Carbon Dioxide 27.8 mmol/L (21.6-31.8); Chloride 99 mmol/L (96-109); Glucose 136 mg/dL (70-110); Potassium 3.4 mmol/L (3.5-5.5); Sodium 136 mmol/L (135-145)
[2023-08-27] MEDS: POTASSIUM CHLORIDE ER 20 MEQ TAB.ER PO SCH ×2 (11:45→13:00)
--- NOTE | 2023-08-27 11:57 | P.DS ---
Providers Date of admission: 08/25/23 16:46 Expected date of discharge: 08/27/23 Attending physician: Jayden Tadeo MD Primary care physician: Jan Vieira [facility] Hospital Course: Discharge Diagnosis: Hypokalemia.. Potassium 3.4 on day of discharge and was replaced with K Dur 40 mEq 1 dose. Patient's hypokalemia was likely secondary to over diuresis as patient was on multiple diuretics concurrently. Electrolytes have stabilized, patient to have repeat labs drawn in 3 days with results sent to PCP for follow- up and management. Patient discharged home back on chlorthalidone but Lasix was discontinued and patient was advised against taking multiple diuretics concurrently again in the future. Hypochloremic Hyponatremia, secondary to overdiuresis. Resolved after holding of IV diuretics and gentle IV fluid hydration. Mechanical fall with generalized weakness, likely secondary to overdiuresis as patient reported getting charley horse in her lower calf which she states resulted in fall. History of CAD with stents. Patient to continue daily medication regimen with amlodipine 10 mg daily, atorvastatin 40 mg nightly Hypertension Hyperlipidemia Alzheimer's dementia Hypothyroidism Hospital Course: Patient is a very pleasant 82-year-old female with a past medical history of CAD with stents, hypertension, hyperlipidemia, Alzheimer's dementia, and hypothyroidism. She presented to the emergency department with a chief complaint of mechanical fall. Patient reports she has been getting pain/charley horses in the back of her calf and when she turned she got a charley horse in her leg and fell to the floor. Patient reports landing on her right side resulting in pain to right hip, lower back, head and neck. Patient denies having any dizziness/lightheadedness, changes in vision or hearing, chest pain or palpitations, shortness of breath, or experiencing any numbness/tingling/weakness/swelling in her extremities. Patient does report that she recently had a bout of increased lower extremity edema and was placed back on Lasix in addition to chlorthalidone by her PCP. Patient underwent full evaluation in the emergency department. CT head completed negative for acute intercranial process. CT cervical spine showing mild multilevel degenerative disc disease but no evidence of cervical spinal fracture. Chest x-ray negative for acute cardiopulmonary process. X-ray right hip negative for acute fracture or dislocation. X-ray lumbar spine negative for acute fractures showing postsurgical changes from posterior lumbar fusion with reports of hardware appears to be intact. EKG completed showing normal sinus rhythm at [address] right hip showing mild right hip osteoarthrosis however no reported evidence of fracture. Labs were completed and reviewed. CBC and coagulation profile were unremarkable. BMP showing hyponatremia with sodium of 128, hypokalemia with potassium of 2.7, and hypochloremia with chloride of 87. Patient admitted under our services with consultation to PT/OT. Patient has been evaluated by physical therapy recommending discharge to rehab, discussed this with social insurance specialist and arrangements are being made at this time. Electrolyte imbalances are believed to be secondary to patient's stool diuretic use with chlorthalidone and recently being placed back on Lasix 20 mg daily. Had long discussion with patient, patient may resume chlorthalidone, but Lasix is discontinued at this time and recommend patient avoid taking multiple diuretics concurrently again in the future. Physical exam: Vital signs reviewed and stable. General: Nontoxic, no distress and appears stated age. Derm: Skin warm and dry, normal coloration for ethnicity. Head: Atraumatic, normocephalic and symmetric. Eyes: EOMs intact, no lid lag, and anicteric sclera Mouth: no lip lesions, mucus membranes moist Cardiovascular: regular rate and rhythm with normal S1S2, systolic murmur, positive posterior tibial pulses bilaterally, and cap refill < 2 seconds. Lungs: Respirations even, regular, and unlabored on room air. Lungs CTA bilaterally, no rhonchi, no rales, no wheezing, and no accessory muscle usage. Abdominal: soft, nontender to palpation, no guarding, no appreciable organomegaly Ext: ROM intact. No gross muscle atrophy, no edema, no contractures Neuro: Speech clear, face symmetrical and CN II-XII grossly intact with no noted focal neuro deficits Psych: Alert and oriented to person, place, time, and situation. Appropriate and pleasant affect. A total of 33 minutes of time were spent preparing this complex discharge summary. Pt was discharged on 08/27/23 at 11:59 AM Patient was seen independently by Nurse Practitioner. This document was prepared using [employer] dictation software. Please allow for errors in religion teacher while rare they do occur. Patient Condition at Discharge: Stable Plan - Discharge Summary Discharge Rx Participant: No New Discharge Prescriptions: Continue Venlafaxine HCl [Effexor] 150 mg PO DAILY Levothyroxine Sodium [Synthroid] 50 mcg PO DAILY Felodipine [Plendil] 10 mg PO DAILY Omeprazole 40 mg PO DAILY Tolterodine Tartrate [Detrol LA] 4 mg PO DAILY Atorvastatin [Lipitor] 40 mg PO HS Carbidopa-Levodopa 10-100 mg [Sinemet 10-100 mg] 1 tab PO QID Chlorthalidone 25 mg PO DAILY Potassium Chloride [Klor-Con M20] 20 meq PO BID Discontinued Sulfamethoxazole/Trimethoprim [Bactrim DS 800-160 mg] 1 tab PO DIRECTED Furosemide [Lasix] 20 mg PO DAILY Discharge Medication List Felodipine [Plendil] 10 mg PO DAILY 01/24/16 [History] Levothyroxine Sodium [Synthroid] 50 mcg PO DAILY 01/24/16 [History] Venlafaxine HCl [Effexor] 150 mg PO DAILY 01/24/16 [History] Omeprazole 40 mg PO DAILY 12/09/17 [History] Atorvastatin [Lipitor] 40 mg PO HS 04/18/19 [History] Tolterodine Tartrate [Detrol LA] 4 mg PO DAILY 04/18/19 [History] Carbidopa-Levodopa 10-100 mg [Sinemet 10-100 mg] 1 tab PO QID 01/28/23 [History] Chlorthalidone 25 mg PO DAILY 08/25/23 [History] Potassium Chloride [Klor-Con M20] 20 meq PO BID 08/25/23 [History] Follow up Appointment(s)/Referral(s): [facility], [NON-STAFF] - As Needed Jan Vieira DO [Primary Care Provider] - 1-2 days Ambulatory/Diagnostic Orders: Basic Metabolic Panel [LAB.AMB] Time Frame: 3 Days, Location: None Selected Discharge Disposition: TRANSFER TO SNF/ECF
[2023-08-27 12:52] VITALS: BP 144/79; RESP 20; TEMP 98.3
== END 2023-08-27 14:19 | DRG 641 ==
LOC: EC 13:00 → 5NMEDONC 16:46 → 4SSUR 18:37
PROVIDERS: ADMIT Student in an Organized Health Care Education/Training Program; ATTEND Student in an Organized Health Care Education/Training Program
DX: E87.6 Hypokalemia (principal); F02.83 Dementia in other diseases classified elsewhere, unspecified severity, with mood disturbance; E87.8 Other disorders of electrolyte and fluid balance, not elsewhere classified; E03.9 Hypothyroidism, unspecified; E78.5 Hyperlipidemia, unspecified; E87.1 Hypo-osmolality and hyponatremia; F32.A Depression, unspecified; G30.9 Alzheimer's disease, unspecified; I10 Essential (primary) hypertension; Z79.890 Hormone replacement therapy; Z88.1 Allergy status to other antibiotic agents; Z88.0 Allergy status to penicillin; I25.10 Atherosclerotic heart disease of native coronary artery without angina pectoris; M16.11 Unilateral primary osteoarthritis, right hip; M50.30 Other cervical disc degeneration, unspecified cervical region; T50.2X5A Adverse effect of carbonic-anhydrase inhibitors, benzothiadiazides and other diuretics, initial encounter; W18.30XA Fall on same level, unspecified, initial encounter; Z79.899 Other long term (current) drug therapy; Z82.49 Family history of ischemic heart disease and other diseases of the circulatory system; Z87.442 Personal history of urinary calculi; Z90.710 Acquired absence of both cervix and uterus; Z95.5 Presence of coronary angioplasty implant and graft; X58.XXXA Exposure to other specified factors, initial encounter; Z87.19 Personal history of other diseases of the digestive system; Z90.49 Acquired absence of other specified parts of digestive tract; Z87.440 Personal history of urinary (tract) infections
CPT/HCPCS: 36415; 70450; 71045; 72100; 72125; 73502; 80048; 80053; 81001; 82746; 83735; 85025; 85027; 85610; 85730; 93005; 96365; 96366; 99285

== ENCOUNTER → 2023-10-12 | Outpatient (CLI) | payer MEDICARE ==
[2023-10-12 16:45] LABS: BUN/Creat Ratio 20.57 Ratio (12.00-20.00); Blood Urea Nitrogen 14.4 mg/dL (9.0-27.0); Calcium 10.1 mg/dL (8.7-10.3); Chloride 100 mmol/L (96-109); Glucose 155 mg/dL (70-110); Potassium 3.3 mmol/L (3.5-5.5); Sodium 139 mmol/L (135-145)
== END | disposition home or self-care (01) ==
LOC: LABWHC1 10:21
PROVIDERS: ATTEND Physician Assistant
DX: E87.6 Hypokalemia (principal); E87.1 Hypo-osmolality and hyponatremia; R53.1 Weakness
CPT/HCPCS: 36415; 80048

== ENCOUNTER 2024-02-29 14:31 | Emergency (ER) | payer MEDICARE ==
[2024-02-29 14:49] VITALS: RESP 14; TEMP 97.9
--- NOTE | 2024-02-29 15:26 | ED ---
ENT HPI - General Chief complaint: ENT Stated complaint: Chest pain Time Seen by Provider: 02/29/24 14:40 Source: patient, EMS Mode of arrival: EMS - History of Present Illness Initial comments: 83-year-old female presents to the emergency department from her nursing fa cility. His son is at bedside and helps provide the history. States that the patient was eating lunch when she started coughing. Staff was concerned with the patient choked on her food and therefore recommended she be evaluated. The son did call to make an appointment for an x-ray. Staff was concerned that patient was decompensating and therefore they recommended immediate evaluation. He was agreeable to EMS transport. Patient arrives and does admit to a cough every time she takes a deep breath in. She denies any shortness of breath. No nausea or vomiting. Patient was not given any medication before transported to the hospital. No other alleviating, precipitating modifying factors - Related Data Home Medications Medication Instructions Recorded Confirmed Felodipine [Plendil] 10 mg PO DAILY 01/24/16 02/29/24 Levothyroxine Sodium [Synthroid] 50 mcg PO DAILY 01/24/16 02/29/24 Venlafaxine HCl [Effexor] 150 mg PO DAILY 01/24/16 02/29/24 Omeprazole 40 mg PO DAILY 12/09/17 02/29/24 Atorvastatin [Lipitor] 40 mg PO HS 04/18/19 02/29/24 Tolterodine Tartrate [Detrol LA] 4 mg PO DAILY 04/18/19 02/29/24 Carbidopa-Levodopa 10-100 mg 1 tab PO QID 01/28/23 02/29/24 [Sinemet 10-100 mg] Chlorthalidone 25 mg PO DAILY 08/25/23 02/29/24 Potassium Chloride [Klor-Con M20] 20 meq PO BID 08/25/23 02/29/24 oxyBUTYnin chloride [oxyBUTYnin 5 mg PO DAILY 02/29/24 02/29/24 chloride ER] Previous Rx's Medication Instructions Recorded Albuterol Inhaler [Ventolin Hfa 2 puff INHALATION QID #8 gm 02/29/24 Inhaler] Doxycycline Hyclate 100 mg PO BID 5 Days #10 tab 02/29/24 Allergies Allergy/AdvReac Type Severity Reaction Status Date / Time azithromycin [From Zithromax] Allergy Rash/Hives Verified 02/29/24 16:39 celecoxib [From Celebrex] Allergy Unknown Verified 02/29/24 16:39 Penicillins Allergy Rash/Hives Verified 02/29/24 16:39 Sulfa (Sulfonamide Allergy Unknown Verified 02/29/24 16:39 Antibiotics) ciprofloxacin [From Cipro] AdvReac Unknown Verified 02/29/24 16:39 nitrofurantoin AdvReac Unknown Verified 02/29/24 16:39 [From Macrobid] tramadol HCl [From Ultram] AdvReac stomach Verified 02/29/24 16:39 upset Review of Systems ROS Statement: Those systems with pertinent positive or pertinent negative responses have been documented in the HPI. ROS Other: All systems not noted in ROS Statement are negative. Past Medical History Past Medical History: GERD/Reflux, Hyperlipidemia, Hypertension, Memory Impairment, Osteoarthritis (OA), Skin Disorder, Thyroid Disorder Additional Past Medical History / Comment(s): hx. kidney stones,UTI, constipation,INCONT OF URINE KWAN A PAD, MIGRAINES, PT STATED YEARS AGO A DR TOLD HER SHE HAD "COLITIS" History of Any Multi-Drug Resistant Organisms: ESBL Date of last positivie culture/infection: 06/25/17 MDRO Source:: urine Past Surgical History: Appendectomy, Back Surgery, Bowel Resection, Cholecystectomy, Heart Catheterization With Stent, Hysterectomy Additional Past Surgical History / Comment(s): lower back disk fusion Past Anesthesia/Blood Transfusion Reactions: Motion Sickness Date of Last Stent Placement:: 2000 Past Psychological History: Anxiety, Depression Smoking Status: Never smoker Past Alcohol Use History: None Reported Past Drug Use History: None Reported - Past Family History Mother History Unknown: Yes Family Medical History: Hypertension Father History Unknown: Yes Family Medical History: Hypertension General Exam General appearance: alert, in no apparent distress Head exam: Present: atraumatic, normocephalic, normal inspection Eye exam: Present: normal appearance, PERRL, EOMI. Absent: scleral icterus, conjunctival injection, periorbital swelling ENT exam: Present: normal exam, mucous membranes moist Neck exam: Present: normal inspection. Absent: tenderness, meningismus, lymphadenopathy Respiratory exam: Present: normal lung sounds bilaterally. Absent: respiratory distress, wheezes, rales, rhonchi, stridor Cardiovascular Exam: Present: regular rate, normal rhythm, normal heart sounds. Absent: systolic murmur, diastolic murmur, rubs, gallop, clicks GI/Abdominal exam: Present: soft, normal bowel sounds. Absent: distended, tenderness, guarding, rebound, rigid Extremities exam: Present: normal inspection, full ROM, normal capillary refill. Absent: tenderness, pedal edema, joint swelling, calf tenderness Back exam: Present: normal inspection Neurological exam: Present: alert, oriented X3, CN II-XII intact Psychiatric exam: Present: normal affect, normal mood Skin exam: Present: warm, dry, intact, normal color. Absent: rash Course Vital Signs 02/29/24 02/29/24 02/29/24 14:34 16:20 16:29 Temperature 97.9 F Pulse Rate 74 72 76 Respiratory 14 Rate Blood Pressure 134/74 O2 Sat by Pulse 97 Oximetry 02/29/24 17:22 Temperature Pulse Rate 77 Respiratory 14 Rate Blood Pressure 152/72 O2 Sat by Pulse 98 Oximetry Medical Decision Making - Medical Decision Making Was pt. sent in by a medical professional or institution (Dr. PA, ALUMNI RELATIONS MANAGER, urgent care, hospital, or intermediate...) When possible be specific @ -Patient was sent in by her ECF Did you speak to anyone other than the patient for history (EMS, parent, family, police, friend...)? What history was obtained from this source @ -Spoke with EMS and the son for history Did you review nursing and triage notes (agree or disagree)? Why? @ -I reviewed and agree with nursing and triage notes Were old charts reviewed (outside hosp., previous admission, EMS record, old EKG, old radiological studies, urgent care reports/EKG's, intermediate records)? Report findings @ -No old charts were reviewed Differential Diagnosis (chest pain, altered mental status, abdominal pain women, abdominal pain men, vaginal bleeding, weakness, fever, dyspnea, syncope, headache, dizziness, GI bleed, back pain, seizure, CVA, palpatations, mental health, musculoskeletal)? @ -Differential Dyspnea: Coronary syndrome, arrhythmia, tamponade, asthma, COPD, pulmonary embolism, pneumonia, pneumothorax, pulmonary effusion, anaphylaxis, diabetic ketoacidosis, flailed chest, pulmonary contusion, diaphragmatic rupture, anemia, neuromuscular , this is not meant to be an all-inclusive list. EKG interpreted by me (3pts min.). @ -Yes and demonstrates sinus rhythm with a rate of 64. SC interval 165. QRS 96. QTc of 444. No acute ST segment elevations or depressions X-rays interpreted by me (1pt min.). @ -Yes and demonstrates bronchiolitis versus atypical pneumonia CT interpreted by me (1pt min.). @ -None done U/S interpreted by me (1pt. min.). @ -None done What testing was considered but not performed or refused? (CT, X-rays, U/S, labs)? Why? @ -None What meds were considered but not given or refused? Why? @ -None Did you discuss the management of the patient with other professionals (professionals i.e. , PA, ALUMNI RELATIONS MANAGER, lab, RT, psych nurse, home health care social worker, steel checker, teacher, financial compliance officer, patient case manager)? Give summary @ -No Was smoking cessation discussed for >3mins.? @ -No Was critical care preformed (if so, how long)? @ -No Were there social determinants of health that impacted care today? How? (Homelessness, low income, unemployed, alcoholism, drug addiction, transportation, low edu. Level, literacy, decrease access to med. care, prison, rehab)? @ -No Was there de-escalation of care discussed even if they declined (Discuss DNR or withdrawal of care, Hospice)? DNR status @ -No What co-morbidities impacted this encounter? (DM, HTN, Smoking, COPD, CAD, Cancer, CVA, ARF, Chemo, Hep., AIDS, mental health diagnosis, sleep apnea, morbid obesity)? @ -Parkinson's Was patient admitted / discharged? Hospital course, mention meds given and route, prescriptions, significant lab abnormalities, going to OR and other p ertinent info. @ -Upon arrival patient was seen and evaluated in hallway 20. Thorough history and physical exam was performed. Patient was given a breathing treatment. X- ray was performed. Laboratory studies are conducted. Results are discussed with patient. Patient has no signs of respiratory distress. Recommended antibiotics for aspiration for which the patient and the son were agreeable to. She is to follow-up with primary care doctor in 2 to 4 days. Return for any new or worsening symptoms. Patient agreeable to plan she was discharged in stable condition Undiagnosed new problem with uncertain prognosis? @ -No Drug Therapy requiring intensive monitoring for toxicity (Heparin, Nitro, Insulin, Cardizem)? @ -No Were any procedures done? @ -No Diagnosis/symptom? @ -Acute aspiration, concern for aspiration pneumonia Acute, or Chronic, or Acute on Chronic? @ -Acute Uncomplicated (without systemic symptoms) or Complicated (systemic symptoms)? @ -Complicated Side effects of treatment? @ -No Exacerbation, Progression, or Severe Exacerbation? @ -No Poses a threat to life or bodily function? How? (Chest pain, USA, CT, pneumonia, PE, COPD, DKA, ARF, appy, cholecystitis, CVA, Diverticulitis, Homicidal, Suicidal, threat to staff... and all critical care pts) @ -No - Lab Data Result diagrams: 02/29/24 15:11 02/29/24 15:11 Lab Results 02/29/24 02/29/24 Range/Units 15:11 15:11 WBC 7.4 (3.8-10.6) k/uL RBC 4.65 (3.80-5.40) m/uL Hgb 14.8 (11.4-16.0) gm/dL Hct 43.8 (34.0-46.0) % MCV 94.2 (80.0-100.0) fL MCH 31.9 (25.0-35.0) pg MCHC 33.9 (31.0-37.0) g/dL RDW 12.6 (11.5-15.5) % Plt Count 222 (150-450) k/uL MPV 8.5 Neutrophils % Not Reportable Neutrophils % (Manual) 72 % Lymphocytes % Not Reportable Lymphocytes % (Manual) 18 % Monocytes % Not Reportable Monocytes % (Manual) 9 % Eosinophils % Not Reportable Eosinophils % (Manual) 1 % Basophils % Not Reportable Neutrophils # Not Reportable Neutrophils # (Manual) 5.33 (1.3-7.7) k/uL Lymphocytes # Not Reportable Lymphocytes # (Manual) 1.33 (1.0-4.8) k/uL Monocytes # Not Reportable Monocytes # (Manual) 0.67 (0-1.0) k/uL Eosinophils # Not Reportable Eosinophils # (Manual) 0.07 (0-0.7) k/uL Basophils # Not Reportable Nucleated RBCs 0 (0-0) /100 WBC Manual Slide Review Performed RBC Morphology Normal Sodium 137 (137-145) mmol/L Potassium 3.1 L (3.5-5.1) mmol/L Chloride 99 (98-107) mmol/L Carbon Dioxide 33 H (22-30) mmol/L Anion Gap 5 mmol/L BUN 20 H (7-17) mg/dL Creatinine 0.72 (0.52-1.04) mg/dL Est GFR (CKD-EPI)AfAm >90 (>60 ml/min/1.73 sqM) Est GFR (CKD-EPI)NonAf 80 (>60 ml/min/1.73 sqM) Glucose 107 H (74-99) mg/dL Calcium 9.9 (8.4-10.2) mg/dL Total Bilirubin 0.7 (0.2-1.3) mg/dL AST 29 (14-36) U/L ALT 13 (4-34) U/L Alkaline Phosphatase 130 H (38-126) U/L Total Protein 6.7 (6.3-8.2) g/dL Albumin 3.8 (3.5-5.0) g/dL Disposition Clinical Impression: Cough, Aspiration into airway Disposition: HOME SELF-CARE Condition: Stable Instructions (If sedation given, give patient instructions): Aspiration Pneumonia (DC), Aspiration Precautions (ED) Additional Instructions: I am putting you on antibiotics to protect you from pneumonia. If you continue to have coughing when eating, follow-up with your primary care doctor for possible swallow exam. Return for any new or worsening symptoms to include f jose cruz or worsening short of breath Prescriptions: Doxycycline Hyclate 100 mg PO BID 5 Days #10 tab Albuterol Inhaler [Ventolin Hfa Inhaler] 2 puff INHALATION QID #8 gm Is patient prescribed a controlled substance at d/c from ED?: No Referrals: Jan Vieira DO [Primary Care Provider] - 1-2 days Time of Disposition: 16:51
[2024-02-29 15:54] LABS: ALT 13 U/L (4-34); AST 29 U/L (14-36); African American GFR (CKD) >90 (>60 ml/min/1.73 sqM); Albumin 3.8 g/dL (3.5-5.0); Alkaline Phosphatase 130 U/L (38-126); Anion Gap 5 mmol/L; Blood Urea Nitrogen 20 mg/dL (7-17); Calcium 9.9 mg/dL (8.4-10.2); Carbon Dioxide 33 mmol/L (22-30); Chloride 99 mmol/L (98-107); Glucose 107 mg/dL (74-99); HCT 43.8 % (34.0-46.0); HGB 14.8 gm/dL (11.4-16.0); MCH 31.9 pg (25.0-35.0); MCHC 33.9 g/dL (31.0-37.0); MCV 94.2 fL (80.0-100.0); Mean Platelet Volume 8.5; Non-African American GFR(CKD) 80 (>60 ml/min/1.73 sqM); Platelet Count 222 k/uL (150-450); Potassium 3.1 mmol/L (3.5-5.1); RBC 4.65 m/uL (3.80-5.40); RDW 12.6 % (11.5-15.5); Sodium 137 mmol/L (137-145); Total Bilirubin 0.7 mg/dL (0.2-1.3); Total Protein 6.7 g/dL (6.3-8.2); WBC 7.4 k/uL (3.8-10.6)
[2024-02-29] MEDS: ALBUTEROL NEBULIZED 2.5 MG/3 ML INHALATION STA (16:18)
--- NOTE | 2024-02-29 16:18 | XR ---
EXAMINATION TYPE: XR chest 2V DATE OF EXAM: 02/29/2024 COMPARISON: 08/25/2023 HISTORY: 83-year-old female cough and pain TECHNIQUE: AP and lateral views FINDINGS: Heart normal size. Interstitial prominence. No consolidation or pleural effusion. IMPRESSION: Interstitial prominence could reflect bronchitis or atypical pneumonia. No focal infiltrate seen.
[2024-02-29 16:22] LABS: Eosinophils # (M) 0.07 k/uL (0-0.7); Lymphocytes # (M) 1.33 k/uL (1.0-4.8); Monocytes # (M) 0.67 k/uL (0-1.0); Neutrophils # (M) 5.33 k/uL (1.3-7.7); Neutrophils % (M) 72 %; Nucleated Red Blood Cells 0 /100 WBC (0-0); RBC Morphology Normal; Total Cells Counted 100
[2024-02-29] MEDS: cefTRIAXone IN SWFI 1,000 MG/10 ML SYRINGE IVP STA (17:04)
[2024-02-29 17:30] VITALS: BP 152/72; PULSE 77
== END 2024-02-29 17:23 | disposition home or self-care (01) ==
LOC: EC 14:31
DX: J69.0 Pneumonitis due to inhalation of food and vomit (principal); Z88.0 Allergy status to penicillin; Z88.1 Allergy status to other antibiotic agents; Z88.2 Allergy status to sulfonamides; Z88.5 Allergy status to narcotic agent; Z88.8 Allergy status to other drugs, medicaments and biological substances
CPT/HCPCS: 36415; 94640; 93005; 80053; 85025; 71046; 99285; 96374; J0696

== ENCOUNTER 2024-10-08 01:13 | Emergency (ER) | payer MEDICARE ==
--- NOTE | 2024-10-08 02:18 | ED ---
General Adult HPI - General Chief complaint: Fall Stated complaint: Fall Time Seen by Provider: 10/08/24 01:18 Source: patient, EMS Mode of arrival: EMS - History of Present Illness Initial comments: Pleasant 83-year-old female presents the ER today for evaluation of pain in the left side of the neck. Patient and I had report that she has fallen 3-4 times in the past week or 2 attempting to get out of bed. No obvious injuries. Patient is not on any blood thinners. Patient states she has a constant headache this is not new today but she does have a mild headache right now. Pain in her neck and pain in her left foot though there is no swelling or injury. - Related Data Home Medications Medication Instructions Recorded Confirmed Felodipine [Plendil] 10 mg PO DAILY 01/24/16 02/29/24 Levothyroxine Sodium [Synthroid] 50 mcg PO DAILY 01/24/16 02/29/24 Venlafaxine HCl [Effexor] 150 mg PO DAILY 01/24/16 02/29/24 Omeprazole 40 mg PO DAILY 12/09/17 02/29/24 Atorvastatin [Lipitor] 40 mg PO HS 04/18/19 02/29/24 Tolterodine Tartrate [Detrol LA] 4 mg PO DAILY 04/18/19 02/29/24 Carbidopa-Levodopa 10-100 mg 1 tab PO QID 01/28/23 02/29/24 [Sinemet 10-100 mg] Chlorthalidone 25 mg PO DAILY 08/25/23 02/29/24 Potassium Chloride [Klor-Con M20] 20 meq PO BID 08/25/23 02/29/24 oxyBUTYnin chloride [oxyBUTYnin 5 mg PO DAILY 02/29/24 02/29/24 chloride ER] Previous Rx's Medication Instructions Recorded Albuterol Inhaler [Ventolin Hfa 2 puff INHALATION QID #8 gm 02/29/24 Inhaler] Doxycycline Hyclate 100 mg PO BID 5 Days #10 tab 02/29/24 Allergies Allergy/AdvReac Type Severity Reaction Status Date / Time azithromycin [From Zithromax] Allergy Rash/Hives Verified 10/08/24 01:22 celecoxib [From Celebrex] Allergy Unknown Verified 10/08/24 01:22 Penicillins Allergy Rash/Hives Verified 11/23/24 01:22 Sulfa (Sulfonamide Allergy Unknown Verified 10/08/24 01:22 Antibiotics) ciprofloxacin [From Cipro] AdvReac Unknown Verified 10/08/24 01:22 nitrofurantoin AdvReac Unknown Verified 10/08/24 01:22 [From Macrobid] tramadol HCl [From Ultram] AdvReac stomach Verified 10/08/24 01:22 upset Review of Systems ROS Statement: Those systems with pertinent positive or pertinent negative responses have been documented in the HPI. ROS Other: All systems not noted in ROS Statement are negative. Past Medical History Past Medical History: GERD/Reflux, Hyperlipidemia, Hypertension, Memory Impairment, Osteoarthritis (OA), Skin Disorder, Thyroid Disorder Additional Past Medical History / Comment(s): hx. kidney stones,UTI, constipation,INCONT OF URINE KWAN A PAD, MIGRAINES, PT STATED YEARS AGO A DR TOLD HER SHE HAD "COLITIS" History of Any Multi-Drug Resistant Organisms: ESBL Date of last positivie culture/infection: 06/25/17 MDRO Source:: urine Past Surgical History: Appendectomy, Back Surgery, Bowel Resection, Cholecystectomy, Heart Catheterization With Stent, Hysterectomy Additional Past Surgical History / Comment(s): lower back disk fusion Past Anesthesia/Blood Transfusion Reactions: Motion Sickness Date of Last Stent Placement:: 2000 Past Psychological History: Anxiety, Depression Smoking Status: Never smoker Past Alcohol Use History: None Reported Past Drug Use History: None Reported - Past Family History Mother History Unknown: Yes Family Medical History: Hypertension Father History Unknown: Yes Family Medical History: Hypertension General Exam - General Exam Comments Initial Comments: Physical Exam GENERAL: Patient is well-developed and well-nourished. Patient is nontoxic and well-hydrated and is in no distress. HENT: Normocephalic, Atraumatic. EYES: PERRL, EOMI PULMONARY: Unlabored respirations. CARDIOVASCULAR: RRR Warm and well perfused extremities ABDOMEN: Non-distended SKIN: No rashes or bruising : Deferred NEUROLOGIC: Alert and oriented Normal speech MUSCULOSKELETAL: Moving all extremities with no apparent injury PSYCHIATRIC: No SI/HI Course Vital Signs 10/08/24 10/08/24 10/08/24 01:14 01:22 03:23 Temperature 97.6 F 97.9 F Pulse Rate 58 L 64 Respiratory 16 14 16 Rate Blood Pressure 155/61 165/60 O2 Sat by Pulse 99 97 Oximetry 11/23/24 04:01 Temperature 97.8 F Pulse Rate 67 Respiratory 16 Rate Blood Pressure 145/66 O2 Sat by Pulse 97 Oximetry Medical Decision Making - Medical Decision Making Was pt. sent in by a medical professional or institution ([facility], AERODYNAMICS ENGINEER, urgent care, hospital, or retirement...) When possible be specific @ -No Did you speak to anyone other than the patient for history (EMS, parent, family, police, friend...)? What history was obtained from this source @ -Yes Son at bedside Did you review nursing and triage notes (agree or disagree)? Why? @ -I reviewed and agree with nursing and triage notes Were old charts reviewed (outside hosp., previous admission, EMS record, old EKG, old radiological studies, urgent care reports/EKG's, retirement records)? Report findings @ -No old charts were reviewed Differential Diagnosis (chest pain, altered mental status, abdominal pain women, abdominal pain men, vaginal bleeding, weakness, fever, dyspnea, syncope, headache, dizziness, GI bleed, back pain, seizure, CVA, palpatations, mental health)? @ -Differential includes concussion, intracranial bleeding, neck strain, neck fracture, ankle sprain, ankle fracture, contusion EKG interpreted by me (3pts min.). @ -As above X-rays interpreted by me (1pt min.). @ -Obvious fractures or dislocations of the ankle CT interpreted by me (1pt min.). @ -No bleed or mass U/S interpreted by me (1pt. min.). @ -None done What testing was considered but not performed or refused? (CT, X-rays, U/S, labs)? Why? @ -None What meds were considered but not given or refused? Why? @ -None Did you discuss the management of the patient with other professionals (professionals i.e. [place] Kaye, AERODYNAMICS ENGINEER, lab, RT, psych nurse, case management social worker, pattern grader cutter, teacher, credit risk review officer, caseworker protective services)? Give summary @ -No Was smoking cessation discussed for >3mins.? @ -No Was critical care preformed (if so, how long)? @ -No Were there social determinants of health that impacted care today? How? (Homelessness, low income, unemployed, alcoholism, drug addiction, transportation, low edu. Level, literacy, decrease access to med. care, care home, rehab)? @ -No Was there de-escalation of care discussed even if they declined (Discuss DNR or withdrawal of care, Hospice)? DNR status @ -No What co-morbidities impacted this encounter? (DM, HTN, Smoking, COPD, CAD, Cancer, CVA, ARF, Chemo, Hep., AIDS, mental health diagnosis, sleep apnea, morbid obesity)? @ -Dementia, declining mobility Was patient admitted / discharged? Hospital course, mention meds given and route, prescriptions, significant lab abnormalities, going to OR and other pertinent info. @ -DC Seen and evaluated history is obtained from EMS and the son at bedside. Imaging was obtained and was unremarkable. At this time patient is hemodynamically stable stable for discharge back to her care facility she will continue her oral antibiotics for UTI. Undiagnosed new problem with uncertain prognosis? @ -No Drug Therapy requiring intensive monitoring for toxicity (Heparin, Nitro, Insulin, Cardizem)? @ -No Were any procedures done? @ -No Diagnosis/symptom? @ -Fall at care facility Acute, or Chronic, or Acute on Chronic? @ -Default Uncomplicated (without systemic symptoms) or Complicated (systemic symptoms)? @ -Default Side effects of treatment? @ -No Exacerbation, Progression, or Severe Exacerbation? @ -No Poses a threat to life or bodily function? How? (Chest pain, [place], [place], pneumonia, PE, COPD, DKA, ARF, appy, cholecystitis, CVA, Diverticulitis, Homicidal, Suicidal, threat to staff... and all critical care pts) @ -No Disposition Clinical Impression: Fall from bed Disposition: HOME SELF-CARE Condition: Stable Instructions (If sedation given, give patient instructions): Fall Prevention for Older Adults (ED) Is patient prescribed a controlled substance at d/c from ED?: No Referrals: Jan Vieira DO [Primary Care Provider] - 1-2 days
[2024-10-08] MEDS: MORPHINE SULFATE 4 MG/ML SYRINGE IVP STA (02:35)
--- NOTE | 2024-10-08 02:41 | XR ---
EXAMINATION TYPE: XR ankle complete LT DATE OF EXAM: 10/08/2024 CLINICAL HISTORY: Fall with pain TECHNIQUE: Frontal, lateral and oblique images of the left ankle are obtained. COMPARISON: None. FINDINGS: Osseous structures are demineralized. There is no acute fracture/dislocation evident in th e left ankle. The ankle mortise appears within normal limits. Moderate diffuse subcutaneous edema. IMPRESSION: There is no acute fracture or dislocation in the left ankle. [facility], , 10/08/2024 2:38 AM
--- NOTE | 2024-10-08 02:44 | CT ---
EXAMINATION TYPE: CT brain sandra wo con DATE OF EXAM: 10/08/2024 COMPARISON: Abdominal CT August 25, 2023 HISTORY: Fell out of bed this evening at [facility]. Patient is not on blood thinners, denies LOC or hitting her head. Patient is currently being treated for a UTI CT DLP: 1534.6 mGycm. Automated Exposure Control for Dose Reduction was Utilized. TECHNIQUE: CT scan of the head and cervical spine are performed without contrast. FINDINGS: There is no acute intracranial hemorrhage or midline shift identified. Mild ventricular a nd sulcal prominence redemonstrated. Mild low-attenuation in the periventricular white matter is agai n seen. Calcification along the anterior interhemispheric fissure axial image 38 is redemonstrated. T he calvarium remains intact. 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 The paranasal sinuses are clear. Cervical spine is visualized in its entirety from C1 through upper thoracic levels and demonstrates s atisfactory alignment without evidence of acute fracture or dislocation. Prevertebral soft tissue ap pears within normal limits. The C1-C2 articulation is within normal limits on the coronal images. V ertebral body heights are maintained. Moderate disc space narrowing at C6-C7 level is redemonstrated. Spinal canal is preserved. Axial images show multilevel uncovertebral facet degenerative changes williams aterally. Thyroid gland is within normal limits. Lung apices show no pneumothorax. IMPRESSION: 1. There is no acute fracture or dislocation evident in the cervical spine. 2. No acute intracranial hemorrhage or midline shift is seen. No significant change from prior. [facility], , 10/08/2024 2:42 AM
[2024-10-08 03:24] VITALS: RESP 16
[2024-10-08 04:05] VITALS: BP 145/66; PULSE 67; TEMP 97.8
== END 2024-10-08 04:38 | disposition home or self-care (01) ==
LOC: EC 01:13
DX: M79.672 Pain in left foot (principal); F03.90 Unspecified dementia, unspecified severity, without behavioral disturbance, psychotic disturbance, mood disturbance, and anxiety; Z88.1 Allergy status to other antibiotic agents; Z88.0 Allergy status to penicillin; Z88.5 Allergy status to narcotic agent; Z88.8 Allergy status to other drugs, medicaments and biological substances; Z88.2 Allergy status to sulfonamides; Z88.6 Allergy status to analgesic agent; W06.XXXA Fall from bed, initial encounter
CPT/HCPCS: 73610; 72125; 70450; 99284; 96374; J2270

== ENCOUNTER 2024-10-30 02:57 | Emergency (ER) | payer MEDICARE ==
[2024-10-30 03:10] VITALS: RESP 17
--- NOTE | 2024-10-30 04:02 | ED ---
General Adult HPI - General Chief complaint: Fall Stated complaint: Fall Time Seen by Provider: 10/30/24 03:40 Source: patient Mode of arrival: EMS Limitations: no limitations - History of Present Illness Initial comments: Patient is an 84-year-old female with a past medical history of Parkinson's dementia presenting today for presumed trip and fall. Patient lives at [facility] and per her son has recently been getting out of bed at night and falli ng when she forgets to use her call light. Patient does not remember what happened. Unsure of LOC but is complaining of pelvic and neck pain. Pt not on blood thnners. Patient is currently at her baseline. She denies any dizziness, new headaches, chest pain, numbness, abdominal pain. Pt's son states this "has become routine" as patient frequently gets up at night without calling for help. - Related Data Home Medications Medication Instructions Recorded Confirmed Felodipine [Plendil] 10 mg PO DAILY 01/24/16 02/29/24 Levothyroxine Sodium [Synthroid] 50 mcg PO DAILY 01/24/16 02/29/24 Venlafaxine HCl [Effexor] 150 mg PO DAILY 01/24/16 02/29/24 Omeprazole 40 mg PO DAILY 12/09/17 02/29/24 Atorvastatin [Lipitor] 40 mg PO HS 04/18/19 02/29/24 Tolterodine Tartrate [Detrol LA] 4 mg PO DAILY 04/18/19 02/29/24 Carbidopa-Levodopa 10-100 mg 1 tab PO QID 01/28/23 02/29/24 [Sinemet 10-100 mg] Chlorthalidone 25 mg PO DAILY 08/25/23 02/29/24 Potassium Chloride [Klor-Con M20] 20 meq PO BID 08/25/23 02/29/24 oxyBUTYnin chloride [oxyBUTYnin 5 mg PO DAILY 02/29/24 02/29/24 chloride ER] Previous Rx's Medication Instructions Recorded Albuterol Inhaler [Ventolin Hfa 2 puff INHALATION QID #8 gm 02/29/24 Inhaler] Doxycycline Hyclate 100 mg PO BID 5 Days #10 tab 02/29/24 Allergies Allergy/AdvReac Type Severity Reaction Status Date / Time azithromycin [From Zithromax] Allergy Rash/Hives Verified 10/30/24 03:10 celecoxib [From Celebrex] Allergy Unknown Verified 10/30/24 03:10 Penicillins Allergy Rash/Hives Verified 10/30/24 03:10 Sulfa (Sulfonamide Allergy Unknown Verified 10/30/24 03:10 Antibiotics) ciprofloxacin [From Cipro] AdvReac Unknown Verified 10/30/24 03:10 nitrofurantoin AdvReac Unknown Verified 10/30/24 03:10 [From Macrobid] tramadol HCl [From Ultram] AdvReac stomach Verified 10/30/24 03:10 upset Review of Systems ROS Statement: Those systems with pertinent positive or pertinent negative responses have been documented in the HPI. Limitations: ROS unobtainable due to patients medical condition Past Medical History Past Medical History: GERD/Reflux, Hyperlipidemia, Hypertension, Memory Impair ment, Osteoarthritis (OA), Skin Disorder, Thyroid Disorder Additional Past Medical History / Comment(s): hx. kidney stones,UTI, constipation,INCONT OF URINE KWAN A PAD, MIGRAINES, PT STATED YEARS AGO A DR TOLD HER SHE HAD "COLITIS" History of Any Multi-Drug Resistant Organisms: ESBL Date of last positivie culture/infection: 06/25/17 MDRO Source:: urine Past Surgical History: Appendectomy, Back Surgery, Bowel Resection, Cholecystectomy, Heart Catheterization With Stent, Hysterectomy Additional Past Surgical History / Comment(s): lower back disk fusion Past Anesthesia/Blood Transfusion Reactions: Motion Sickness Date of Last Stent Placement:: 2000 Past Psychological History: Anxiety, Depression Smoking Status: Never smoker Past Alcohol Use History: None Reported Past Drug Use History: None Reported - Past Family History Mother History Unknown: Yes Family Medical History: Hypertension Father History Unknown: Yes Family Medical History: Hypertension General Exam - General Exam Comments Initial Comments: PE: CONSTITUTIONAL: No apparent distress, well appearing SKIN: Warm, dry, no jaundice, hives or petechiae, small hematoma to left knee, otherwise no bruising, skin tears or lacerations EYES: Pupils are equally round, extraocular movements intact without nystagmus, clear conjunctiva, non-icteric sclera HENT: Normocephalic, atraumatic, moist mucus membranes, oropharynx clear without exudates NECK: , Normal appearance, c-collar in place, tenderness to to the left of C7, no step offs PULMONARY: Clear to auscultation without wheezes, rhonchi, or rales, normal excursion, no accessory muscle use and no stridor CARDIOVASCULAR: Regular rate, rhythm, normal S1 and S2. No appreciated murmurs, rubs or gallops. Strong radial pulses with intact distal perfusion. No lower extremity edema GASTROINTESTINAL: Soft, active bowel sounds throughout, mild tenderness to deep palpation of the left lower quadrant, non-distended, no palpable masses, no rebound or guarding. No hepatosplenomegaly MUSCULOSKELETAL: Extremities have no gross deformity, no edema, redness, or swelling. No calf swelling Minimal tenderness palpation of the mid left forearm without deformity redness, bruising or signs of injury, tenderness to palpation left knee with small hematoma, able to flex and extend left knee, remainder of extremities are nontender to palpation NEUROLOGIC:_a/o x 2, GCS 15, mentation is baseline and normal speech. Moves all extremities x 4 without motor or sensory deficit PSYCHIATRIC:_normal mood and affect, thought process is pleasantly confused Limitations: no limitations Course Vital Signs 10/30/24 10/30/24 02:58 05:39 Temperature 97.4 F L 97.6 F Pulse Rate 64 74 Respiratory 17 17 Rate Blood Pressure 133/61 148/67 O2 Sat by Pulse 98 98 Oximetry EKG Findings - EKG Comments: EKG Findings:: Sinus rhythm, rate 62 bpm, AK interval 168 ms, QRS duration 85 ms, QT/QTc 442/448 ms, left axis deviation, no ST elevations or depressions, no arrhythmia though artifact is present throughout, no changes from prior done one 02/29/24 Medical Decision Making - Medical Decision Making Was pt. sent in by a medical professional or institution (Dr. PA, RESIDENTIAL REMODELING SUBCONTRACTOR, urgent care, hospital, or senior care...) When possible be specific @ -Patient was sent in by [facility] Did you speak to anyone other than the patient for history (EMS, parent, family, police, friend...)? What history was obtained from this source @ -I spoke with patient's son who attempted to provide history however he was not present at time of patient's fall Did you review nursing and triage notes (agree or disagree)? Why? @ -I reviewed and agree with nursing and triage notes Were old charts reviewed (outside hosp., previous admission, EMS record, old EKG, old radiological studies, urgent care reports/EKG's, senior care records)? Report findings @Medical records reviewed Differential Diagnosis (chest pain, altered mental status, abdominal pain women, abdominal pain men, vaginal bleeding, weakness, fever, dyspnea, syncope, headache, dizziness, GI bleed, back pain, seizure, CVA, palpatations, mental health, musculoskeletal)? @Differential Musculoskeletal Muscular strain, contusion, ligament sprain, fracture, arthritis, muscle spasm, nerve compression, C spine sprain, contusion, fracture.. This is not meant to be in all inclusive list EKG interpreted by me (3pts min.). @ -As above X-rays interpreted by me (1pt min.). @No evidence of fracture or dislocation on XR hips. No evidence of fracture on forearm XR, no evidence fracture on XR knee CT interpreted by me (1pt min.). @ -No evidence of intracrabial hemorrhage or skull fracture on CT brain, no evidence of acute injury fracture or misalignment on CT cspine, No evidence fracture, hemorrhage or free fluid on CT C/A/P U/S interpreted by me (1pt. min.). @ -None done What testing was considered but not performed or refused? (CT, X-rays, U/S, labs)? Why? @ -None What meds were considered but not given or refused? Why? @ -None Did you discuss the management of the patient with other professionals (professionals i.e. , PA, RESIDENTIAL REMODELING SUBCONTRACTOR, lab, RT, psych nurse, social media senior associate, claims technician, teacher, youth liaison officer, outpatient case manager)? Give summary @ -No Was smoking cessation discussed for >3mins.? @ -No Was critical care preformed (if so, how long)? @ -No Were there social determinants of health that impacted care today? How? (Homelessness, low income, unemployed, alcoholism, drug addiction, transportation, low edu. Level, literacy, decrease access to med. care, custodial, rehab)? @ -No Was there de-escalation of care discussed even if they declined (Discuss DNR or withdrawal of care, Hospice)? @ -No What co-morbidities impacted this encounter? (DM, HTN, Smoking, COPD, CAD, Cancer, CVA, ARF, Chemo, Hep., AIDS, mental health diagnosis, sleep apnea, morbid obesity)? @Parkinson's dementia Was patient admitted / discharged? Hospital course, mention meds given and route, prescriptions, significant lab abnormalities, going to OR and other pertinent info. @ -Discharged Patient is an 84-year-old female history of Parkinson's dementia presenting for presumed trip and fall from [facility]. Endorsed lower neck and pelvis pain, extremities are neurovascularly intact, she has no radiculopathy or numbness in her upper extremities. Given fall was unwitnessed and she is unsure of LOC, consciousness we will also obtain EKG, troponin , basic labs in addition to CT brain C-spine, CT chest abdomen pelvis without contrast, x-ray of the forearm, l eft knee and pelvis, Tylenol for pain control. Patient and son are agreeable plan of care. Labs and imaging reviewed. Grossly within normal limits. Na 133. Abnormal values not concerning for acute pathology related to presenting complaint. After reviewing patient's imaging I cleared their C-Spine. She is able to range her neck through full ROM without radiculopathy, numbness or weakness in her upper extremities. Updated patient and son who findings, including mild hyponatremia and instructed pt to increase her salt intake discussed plan for discharge. They are agreeable with plan. Undiagnosed new problem with uncertain prognosis? @ -No Drug Therapy requiring intensive monitoring for toxicity (Heparin, Nitro, Insulin, Cardizem)? @ -No Were any procedures done? @ -No Diagnosis/symptom? @ -Fall, neck pain Acute, or Chronic, or Acute on Chronic? @ -acute Uncomplicated (without systemic symptoms) or Complicated (systemic symptoms)? uncomplicated Side effects of treatment? @ -No Exacerbation, Progression, or Severe Exacerbation? @ -No Poses a threat to life or bodily function? How? (Chest pain, [place], [place], pneumonia, PE, COPD, DKA, ARF, appy, cholecystitis, CVA, Diverticulitis, Homicidal, Suicidal, threat to staff... and all critical care pts) @ -No - Lab Data Result diagrams: 10/30/24 04:03 10/30/24 04:03 Lab Results 10/30/24 10/30/24 10/30/24 Range/Units 04:03 04:03 04:03 WBC 9.4 (3.8-10.6) k/uL RBC 5.27 (3.80-5.40) m/uL Hgb 16.7 H (11.4-16.0) gm/dL Hct 49.8 H (34.0-46.0) % MCV 94.5 (80.0-100.0) fL MCH 31.6 (25.0-35.0) pg MCHC 33.5 (31.0-37.0) g/dL RDW 12.9 (11.5-15.5) % Plt Count 286 (150-450) k/uL MPV 8.1 Neutrophils % (Manual) 64 % Lymphocytes % (Manual) 20 % Monocytes % (Manual) 9 % Eosinophils % (Manual) 7 % Neutrophils # (Manual) 6.02 (1.3-7.7) k/uL Lymphocytes # (Manual) 1.88 (1.0-4.8) k/uL Monocytes # (Manual) 0.85 (0-1.0) k/uL Eosinophils # (Manual) 0.66 (0-0.7) k/uL Nucleated RBCs 0 (0-0) /100 WBC Manual Slide Review Performed RBC Morphology Normal PT 10.7 (10.0-12.5) sec INR 1.0 (<1.2) APTT 22.5 (22.0-30.0) sec Sodium 133 L (137-145) mmol/L Potassium 4.0 (3.5-5.1) mmol/L Chloride 98 (98-107) mmol/L Carbon Dioxide 29 (22-30) mmol/L Anion Gap 6 mmol/L BUN 23 H (7-17) mg/dL Creatinine 0.72 (0.52-1.04) mg/dL Est GFR (CKD-EPI)AfAm >90 (>60 ml/min/1.73 sqM) Est GFR (CKD-EPI)NonAf 79 (>60 ml/min/1.73 sqM) Glucose 144 H (74-99) mg/dL Calcium 10.1 (8.4-10.2) mg/dL Total Bilirubin 1.2 (0.2-1.3) mg/dL AST 25 (14-36) U/L ALT 26 (4-34) U/L Alkaline Phosphatase 149 H (38-126) U/L Troponin I (0.000-0.034) ng/mL Total Protein 7.5 (6.3-8.2) g/dL Albumin 4.5 (3.5-5.0) g/dL 10/30/24 Range/Units 04:03 WBC (3.8-10.6) k/uL RBC (3.80-5.40) m/uL Hgb (11.4-16.0) gm/dL Hct (34.0-46.0) % MCV (80.0-100.0) fL MCH (25.0-35.0) pg MCHC (31.0-37.0) g/dL RDW (11.5-15.5) % Plt Count (150-450) k/uL MPV Neutrophils % (Manual) % Lymphocytes % (Manual) % Monocytes % (Manual) % Eosinophils % (Manual) % Neutrophils # (Manual) (1.3-7.7) k/uL Lymphocytes # (Manual) (1.0-4.8) k/uL Monocytes # (Manual) (0-1.0) k/uL Eosinophils # (Manual) (0-0.7) k/uL Nucleated RBCs (0-0) /100 WBC Manual Slide Review RBC Morphology PT (10.0-12.5) sec INR (<1.2) APTT (22.0-30.0) sec Sodium (137-145) mmol/L Potassium (3.5-5.1) mmol/L Chloride (98-107) mmol/L Carbon Dioxide (22-30) mmol/L Anion Gap mmol/L BUN (7-17) mg/dL Creatinine (0.52-1.04) mg/dL Est GFR (CKD-EPI)AfAm (>60 ml/min/1.73 sqM) Est GFR (CKD-EPI)NonAf (>60 ml/min/1.73 sqM) Glucose (74-99) mg/dL Calcium (8.4-10.2) mg/dL Total Bilirubin (0.2-1.3) mg/dL AST (14-36) U/L ALT (4-34) U/L Alkaline Phosphatase (38-126) U/L Troponin I <0.012 (0.000-0.034) ng/mL Total Protein (6.3-8.2) g/dL Albumin (3.5-5.0) g/dL Disposition Clinical Impression: Fall Disposition: HOME SELF-CARE Condition: Good Instructions (If sedation given, give patient instructions): Fall Prevention for Older Adults (ED) Additional Instructions: Every disease is a spectrum and a small chance still exists that a serious condition could develop, for this reason, please monitor yourself closely for new, changing or worsening symptoms, symptoms that persist beyond 48 hours, confusion, inability to tolerate/keep down fluids or your medications, inability to follow up with outpatient providers as instructed and should you experience these symptoms or should you have any further concerns for your wellbeing please return to the ED or call 911 immediately. PLEASE call your primary care physician as soon as possible to arrange / discuss plan for followup appointment. Appointment in the next 1-3 days is strongly en couraged if possible. PLEASE let us know here before you leave if there is anything further we can do to be of any assistance. Take care and feel Better! Is patient prescribed a controlled substance at d/c from ED?: No Referrals: Jan Vieira DO [Primary Care Provider] - 1-2 days
[2024-10-30] MEDS: ACETAMINOPHEN TAB 500 MG TAB PO STA (04:09)
[2024-10-30 04:18] LABS: HCT 49.8 % (34.0-46.0); HGB 16.7 gm/dL (11.4-16.0); MCH 31.6 pg (25.0-35.0); MCHC 33.5 g/dL (31.0-37.0); MCV 94.5 fL (80.0-100.0); Mean Platelet Volume 8.1; Platelet Count 286 k/uL (150-450); RBC 5.27 m/uL (3.80-5.40); RDW 12.9 % (11.5-15.5); WBC 9.4 k/uL (3.8-10.6)
[2024-10-30 04:39] LABS: ALT 26 U/L (4-34); African American GFR (CKD) >90 (>60 ml/min/1.73 sqM); Albumin 4.5 g/dL (3.5-5.0); Anion Gap 6 mmol/L; Blood Urea Nitrogen 23 mg/dL (7-17); Calcium 10.1 mg/dL (8.4-10.2); Carbon Dioxide 29 mmol/L (22-30); Chloride 98 mmol/L (98-107); Glucose 144 mg/dL (74-99); Non-African American GFR(CKD) 79 (>60 ml/min/1.73 sqM); Sodium 133 mmol/L (137-145); Total Bilirubin 1.2 mg/dL (0.2-1.3); Total Protein 7.5 g/dL (6.3-8.2)
--- NOTE | 2024-10-30 04:45 | CT ---
EXAMINATION TYPE: CT brain cspine wo con DATE OF EXAM: 10/30/2024 COMPARISON: Prior trauma CT October 08, 2024 HISTORY: Fall unwitnessed unknown LOC, unknown head inj, no thinners. CT DLP: 1416.1 mGycm. Automated Exposure Control for Dose Reduction was Utilized. TECHNIQUE: CT scan of the head and cervical spine are performed without contrast. FINDINGS: There is no acute intracranial hemorrhage or midline shift identified. Mild to moderate v entricular and sulcal prominence is redemonstrated. Mild low attenuation in the periventricular white matter is redemonstrated. The calvarium is intact. Bilateral aphakia redemonstrated. The paranasal s inuses are clear. Cervical spine is visualized in its entirety from C1 through upper thoracic levels and demonstrates s table and satisfactory alignment without evidence of acute fracture or dislocation. Prevertebral sof t tissue appears within normal limits. The C1-C2 articulation is within normal limits on the coronal images. Vertebral body heights are maintained. [id number] disc space narrowing and spurring at C6-C7 levels redemonstrated. Axial images show multilevel uncovertebral facet degenerative changes b ilaterally. There is a partially calcified left-sided thyroid nodule redemonstrated. Upper lungs show no pneumothorax. IMPRESSION: 1. There is no acute fracture or dislocation evident in the cervical spine. 2. No acute intracranial hemorrhage or midline shift is seen. [facility], , 10/30/2024 4:43 AM
[2024-10-30 04:49] LABS: AST 25 U/L (14-36); Alkaline Phosphatase 149 U/L (38-126)
--- NOTE | 2024-10-30 04:49 | CT ---
EXAMINATION TYPE: CT ChestAbdPelvis wo con DATE OF EXAM: 10/30/2024 COMPARISON: CT abdomen 2019 HISTORY: Fall unwitnessed unknown LOC, unknown head inj, no thinners. CT DLP: 758.8 mGycm. Automated Exposure Control for Dose Reduction was Utilized. TECHNIQUE: CT scan of the thorax, abdomen and pelvis is performed without IV contrast. FINDINGS: Within the limitations of a noncontrast study, the following observations are made. LUNGS: Low lung volumes are present with dependent opacity in the lower lobes favoring atelectasis. N o pleural effusion or pneumothorax seen bilaterally. MEDIASTINUM: Mitral annular calcifications are seen. There is at least moderate coronary artery calci fication. No cardiomegaly or pericardial effusion. LIVER/GB: Gallbladder not seen and presumed surgically absent. PANCREAS: No significant abnormality is seen. SPLEEN: No significant abnormality is seen. ADRENALS: No significant abnormality is seen. KIDNEYS: Moderate to severe right-sided pyelocaliectasis without hydroureter is redemonstrated. Suspe ct UPJ stricture. BOWEL: No significant abnormality is seen. GENITAL ORGANS: Uterus is surgically absent. LYMPH NODES: No greater than 1cm abdominal or pelvic lymph nodes are appreciated. OSSEOUS STRUCTURES: Multilevel surgical change to the lumbar spine is present. Scoliotic curvature to the thoracolumbar spine is seen.. OTHER: No significant additional abnormality is seen. IMPRESSION: Suboptimal study without IV contrast. No acute posttraumatic finding clearly seen. [facility], , 10/30/2024 4:47 AM
[2024-10-30 04:50] LABS: Partial Thromboplastin Time 22.5 sec (22.0-30.0); Prothrombin Time 10.7 sec (10.0-12.5)
--- NOTE | 2024-10-30 04:50 | XR ---
EXAMINATION TYPE: XR knee limited LT DATE OF EXAM: 10/30/2024 CLINICAL HISTORY: Pain and swelling TECHNIQUE: Frontal and lateral views of the left knee are obtained. COMPARISON: None. FINDINGS: There is no acute fracture/dislocation evident in left knee. Moderate to severe tricompart ment joint space loss and mild to moderate spurring. Overlying soft tissue is unremarkable. IMPRESSION: As above. [facility], Workstation: [email or web address], 10/30/2024 4:48 AM
--- NOTE | 2024-10-30 04:51 | XR ---
EXAMINATION TYPE: XR forearm LT DATE OF EXAM: 10/30/2024 CLINICAL HISTORY: Proximal pain TECHNIQUE: Two views of the left forearm are obtained. COMPARISON: None. FINDINGS: Osseous structures are demineralized. There is no acute fracture or dislocation seen in the leftradius or ulna. The left elbow and wrist joints appear within normal limits. The overlying sof t tissue appears within normal limits. IMPRESSION: As above. [facility], , 10/30/2024 4:48 AM
--- NOTE | 2024-10-30 04:52 | XR ---
EXAMINATION TYPE: XR Hip Bilateral Complete DATE OF EXAM: 10/30/2024 CLINICAL HISTORY: Pain after fall. TECHNIQUE: AP and frogleg views of the bilateral hips are obtained. COMPARISON: Same day for body CT. FINDINGS: There is no acute fracture/dislocation evident in the bilateral hips. Symmetric mild-to-mo derate axial joint space loss and acetabular spurring. Bilateral pelvic phleboliths are noted. IMPRESSION: There is no acute fracture or dislocation in either hip. [facility], , 10/30/2024 4:50 AM
[2024-10-30 05:43] VITALS: BP 148/67; PULSE 74; TEMP 97.6
[2024-10-30 05:44] LABS: Eosinophils # (M) 0.66 k/uL (0-0.7); Lymphocytes # (M) 1.88 k/uL (1.0-4.8); Monocytes # (M) 0.85 k/uL (0-1.0); Neutrophils # (M) 6.02 k/uL (1.3-7.7); Neutrophils % (M) 64 %; Nucleated Red Blood Cells 0 /100 WBC (0-0); RBC Morphology Normal; Total Cells Counted 100
== END 2024-10-30 05:59 | disposition home or self-care (01) ==
LOC: EC 02:57
DX: M54.2 Cervicalgia (principal); F02.83 Dementia in other diseases classified elsewhere, unspecified severity, with mood disturbance; F02.84 Dementia in other diseases classified elsewhere, unspecified severity, with anxiety; G20.A1 Parkinson's disease without dyskinesia, without mention of fluctuations; Z88.0 Allergy status to penicillin; Z88.1 Allergy status to other antibiotic agents; Z88.2 Allergy status to sulfonamides; Z88.6 Allergy status to analgesic agent; Z88.8 Allergy status to other drugs, medicaments and biological substances; W01.0XXA Fall on same level from slipping, tripping and stumbling without subsequent striking against object, initial encounter
CPT/HCPCS: 36415; 70450; 71250; 72125; 73521; 74176; 80053; 84484; 85025; 85610; 85730; 93005; 99285

== ENCOUNTER 2024-11-20 02:59 | Observation (INO) | payer MEDICARE ==
--- NOTE | 2024-11-20 03:31 | ED ---
General Adult HPI - General Chief complaint: Fall Stated complaint: fall Time Seen by Provider: 11/20/24 03:04 Source: EMS Mode of arrival: EMS Limitations: no limitations - History of Present Illness Initial comments: Dictation was produced using [employer] dictation software. please excuse any grammatical, word or spelling errors. Chief Complaint: 84-year-old female presents to the emergency department with multiple falls History of Present Illness: Patient is 84-year-old female lives at assisted living facility. Patient suffered multiple falls today. She initially fell and was helped back into bed however she started later to complain of some symptoms. She does not take any anticoagulation medications. Unknown loss of consciousness. Patient complaining of right hip, left shoulder and head pain. History of present illness limited due to patient being hard of hearing The ROS documented in this emergency department record has been reviewed and confirmed by me. Those systems with pertinent positive or negative responses have been documented in the HPI. All other systems are other negative and/or noncontributory. - Related Data Home Medications Medication Instructions Recorded Confirmed Felodipine [Plendil] 10 mg PO DAILY 01/24/16 02/29/24 Levothyroxine Sodium [Synthroid] 50 mcg PO DAILY 01/24/16 02/29/24 Venlafaxine HCl [Effexor] 150 mg PO DAILY 01/24/16 02/29/24 Omeprazole 40 mg PO DAILY 12/09/17 02/29/24 Atorvastatin [Lipitor] 40 mg PO HS 04/18/19 02/29/24 Tolterodine Tartrate [Detrol LA] 4 mg PO DAILY 04/18/19 02/29/24 Carbidopa-Levodopa 10-100 mg 1 tab PO QID 01/28/23 02/29/24 [Sinemet 10-100 mg] Chlorthalidone 25 mg PO DAILY 08/25/23 02/29/24 Potassium Chloride [Klor-Con M20] 20 meq PO BID 08/25/23 02/29/24 oxyBUTYnin chloride [oxyBUTYnin 5 mg PO DAILY 02/29/24 02/29/24 chloride ER] Previous Rx's Medication Instructions Recorded Albuterol Inhaler [Ventolin Hfa 2 puff INHALATION QID #8 gm 02/29/24 Inhaler] Doxycycline Hyclate 100 mg PO BID 5 Days #10 tab 02/29/24 Allergies Allergy/AdvReac Type Severity Reaction Status Date / Time azithromycin [From Zithromax] Allergy Rash/Hives Verified 10/30/24 03:10 celecoxib [From Celebrex] Allergy Unknown Verified 10/30/24 03:10 Penicillins Allergy Rash/Hives Verified 10/30/24 03:10 Sulfa (Sulfonamide Allergy Unknown Verified 10/30/24 03:10 Antibiotics) ciprofloxacin [From Cipro] AdvReac Unknown Verified 10/30/24 03:10 nitrofurantoin AdvReac Unknown Verified 10/30/24 03:10 [From Macrobid] tramadol HCl [From Ultram] AdvReac stomach Verified 10/30/24 03:10 upset Review of Systems ROS Statement: Those systems with pertinent positive or pertinent negative responses have been documented in the HPI. ROS Other: All systems not noted in ROS Statement are negative. Past Medical History Past Medical History: GERD/Reflux, Hyperlipidemia, Hypertension, Memory Impairme nt, Osteoarthritis (OA), Skin Disorder, Thyroid Disorder Additional Past Medical History / Comment(s): hx. kidney stones,UTI, constipation,INCONT OF URINE KWAN A PAD, MIGRAINES, PT STATED YEARS AGO A DR TOLD HER SHE HAD "COLITIS" History of Any Multi-Drug Resistant Organisms: ESBL Date of last positivie culture/infection: 06/25/17 MDRO Source:: urine Past Surgical History: Appendectomy, Back Surgery, Bowel Resection, Cholecystectomy, Heart Catheterization With Stent, Hysterectomy Additional Past Surgical History / Comment(s): lower back disk fusion Past Anesthesia/Blood Transfusion Reactions: Motion Sickness Date of Last Stent Placement:: 2000 Past Psychological History: Anxiety, Depression Smoking Status: Never smoker Past Alcohol Use History: None Reported Past Drug Use History: None Reported - Past Family History Mother History Unknown: Yes Family Medical History: Hypertension Father History Unknown: Yes Family Medical History: Hypertension General Exam - General Exam Comments Initial Comments: PHYSICAL EXAM: General Impression: Alert and oriented x3, not in acute distress HEENT: Normocephalic atraumatic, extra-ocular movements intact, pupils equal and reactive to light bilaterally, mucous membranes moist. Cardiovascular: Heart regular rate and rhythm Chest: Able to complete full sentences, no retractions, no tachypnea Abdomen: abdomen soft, non-tender, non-distended, no organomegaly Musculoskeletal: Pulses present and equal in all extremities, no peripheral edema Motor: no focal deficits noted Neurological: CN II-XII grossly intact, no focal motor or sensory deficits noted Skin: Intact with no visualized rashes Psych: Normal affect and mood Limitations: no limitations Course Vital Signs 11/20/24 11/20/24 03:02 05:01 Temperature 97.7 F Pulse Rate 65 60 Respiratory 18 16 Rate Blood Pressure 139/77 121/64 O2 Sat by Pulse 97 Oximetry EKG Findings - EKG Comments: EKG Findings:: My EKG interpretation: Ventricular rate 60, sinus rhythm, OH 170, QRS 86, QTc 469. No OH prolongation, no QTC prolongation, no ST or T-wave changes noted. Overall, this EKG is unremarkable Medical Decision Making - Medical Decision Making Was pt. sent in by a medical professional or institution (, PA, TROUBLE SHOOTER, urgent care, hospital, or snf...) When possible be specific @ -No Did you speak to anyone other than the patient for history (EMS, parent, family, police, friend...)? What history was obtained from this source @ -More history was obtained from patient's son at the bedside states that she is a fall risk because she tries to do things that she is no longer able to do and requires assistance. Also states that patient has chronic back pain Did you review nursing and triage notes (agree or disagree)? Why? @ -I reviewed and agree with nursing and triage notes Were old charts reviewed (outside hosp., previous admission, EMS record, old EKG , old radiological studies, urgent care reports/EKG's, snf records)? Report findings @ -No old charts were reviewed Differential Diagnosis (chest pain, altered mental status, abdominal pain women, abdominal pain men, vaginal bleeding, musculoskeletal, weakness, fever, dyspnea, syncope, headache, dizziness, GI bleed, back pain, seizure, CVA, palpatations, mental health)? @ -Differential Weakness: Hypoglycemia, shock, sepsis, hyponatremia, anemia, infection, DC, ETOH, adverse medicine reaction, overdose, stroke, this is not meant to be an all-inclusive list. EKG interpreted by me (3pts min.). @ -As above X-rays interpreted by me (1pt min.). @ -Chest x-ray pelvis x-ray shoulder x-ray shows no acute processes. CT interpreted by me (1pt min.). @ -Scan the head and C-spine shows no acute processes. U/S interpreted by me (1pt. min.). @ -None done What testing was considered but not performed or refused? (CT, X-rays, U/S, labs)? Why? @ -None What meds were considered but not given or refused? Why? @ -None Was smoking cessation discussed for >3mins.? @ -No Were there social determinants of health that impacted care today? How? (Homelessness, low income, unemployed, alcoholism, drug addiction, transportation, low edu. Level, literacy, decrease access to med. care, half-way, rehab)? @ -No Was there de-escalation of care discussed even if they declined (Discuss DNR or withdrawal of care, Hospice)? DNR status @ -No What co-morbidities impacted this encounter? (DM, HTN, Smoking, COPD, CAD, Cancer, CVA, ARF, Chemo, Hep., AIDS, mental health diagnosis, sleep apnea, morbi d obesity)? @ -Worsening weakness Was patient admitted / discharged? Hospital course, mention meds given and route, prescriptions, significant lab abnormalities, going to OR and other pertinent info. @ -84-year-old female presents emergency department after suffering multiple falls at the assisted living facility. Vital signs upon arrival are within acceptable limits. Patient complaining of multiple sites of pain. She however has no gross deformities on physical examination. Laboratory evaluation is unremarkable. Imaging studies are negative. At the time of 645 patient started complaining of some acute on chronic back pain. CT lumbar spine ordered. Given the patient is a significant fall risk and not an appropriate disposition due to her weakness and declining functional status she will be admitted with PT OT social work consultation. Case discussed with hospitalist for admission Did you discuss the management of the patient with other professionals (professionals i.e. , PA, TROUBLE SHOOTER, lab, RT, psych nurse, social media director, drawer maker, teacher, president and chief operating officer, high risk case manager)? Give summary @ -See above Was critical care preformed (if so, how long)? @ -No Undiagnosed new problem with uncertain prognosis? @ -No Drug Therapy requiring intensive monitoring for toxicity (Heparin, Nitro, Insulin, Cardizem)? @ -No Were any procedures done? @ -No Diagnosis/symptom? Acute, or Chronic, or Acute on Chronic? Uncomplicated (without systemic symptoms) or Complicated (systemic symptoms)? @ -Gravely disabled Side effects of treatment? @ -No Exacerbation, Progression, or Severe Exacerbation? @ -No Poses a threat to life or bodily function? How? (Chest pain, USA, DC, pneumonia, PE, COPD, DKA, ARF, appy, cholecystitis, CVA, Diverticulitis, Homicidal, Suicidal, threat to staff... and all critical care pts) @ -yes - Lab Data Result diagrams: 11/20/24 04:42 11/20/24 04:42 Lab Results 11/20/24 11/20/24 Range/Units 04:42 04:42 WBC 9.5 (3.8-10.6) k/uL RBC 4.52 (3.80-5.40) m/uL Hgb 14.4 (11.4-16.0) gm/dL Hct 41.5 (34.0-46.0) % MCV 91.7 (80.0-100.0) fL MCH 31.9 (25.0-35.0) pg MCHC 34.8 (31.0-37.0) g/dL RDW 13.4 (11.5-15.5) % Plt Count 240 (150-450) k/uL MPV 8.9 Neutrophils % (Manual) 75 % Lymphocytes % (Manual) 16 % Monocytes % (Manual) 7 % Eosinophils % (Manual) 2 % Neutrophils # (Manual) 7.13 (1.3-7.7) k/uL Lymphocytes # (Manual) 1.52 (1.0-4.8) k/uL Monocytes # (Manual) 0.67 (0-1.0) k/uL Eosinophils # (Manual) 0.19 (0-0.7) k/uL Nucleated RBCs 0 (0-0) /100 WBC Manual Slide Review Performed Sodium 133 L (137-145) mmol/L Potassium 3.5 (3.5-5.1) mmol/L Chloride 99 (98-107) mmol/L Carbon Dioxide 30 (22-30) mmol/L Anion Gap 4 mmol/L BUN 27 H (7-17) mg/dL Creatinine 0.67 (0.52-1.04) mg/dL Est GFR (CKD-EPI)AfAm >90 (>60 ml/min/1.73 sqM) Est GFR (CKD-EPI)NonAf 82 (>60 ml/min/1.73 sqM) Glucose 147 H (74-99) mg/dL Calcium 9.5 (8.4-10.2) mg/dL Total Bilirubin 0.9 (0.2-1.3) mg/dL AST 19 (14-36) U/L ALT 27 (4-34) U/L Alkaline Phosphatase 171 H (38-126) U/L Total Protein 6.3 (6.3-8.2) g/dL Albumin 3.6 (3.5-5.0) g/dL Lipase 111 (23-300) U/L Disposition Clinical Impression: Frequent falls, Gravely disabled Disposition: ADMITTED IP TO THIS [facility] Condition: Fair Referrals: None,Stated [REFERRING] - 1-2 days Decision Time: 06:46
--- NOTE | 2024-11-20 04:30 | CT ---
EXAM: CT Head Without Intravenous Contrast CLINICAL HISTORY: ITS.REASON CT Reason: falls TECHNIQUE: Axial computed tomography images of the head/brain without intravenous contrast. CTDI is 45.2 mGy and DLP is 1140 mGy-cm. This CT exam was performed using one or more of the following dose reduction techniques: automated exposure control, adjustment of the mA and/or kV according to patient size, and/or use of iterative reconstruction technique. COMPARISON: 10/30/2024 FINDINGS: Brain: No hemorrhage or mass effect. Redemonstration of calcified lesion along the anterior falx measuring 11 mm. Ventricles: No hydrocephalus. Bones/joints: Unremarkable. Soft tissues: Unremarkable. Sinuses: No air fluid level. Mastoid air cells: Clear. IMPRESSION: No acute hemorrhage, hydrocephalus, or mass effect. Anterior falcine meningioma. EXAM: CT Cervical Spine Without Intravenous Contrast CLINICAL HISTORY: ITS.REASON CT Reason: falls TECHNIQUE: Axial computed tomography images of the cervical spine without intravenous contrast. CTDI is 10.8 mGy and DLP is 327.7 mGy-cm. This CT exam was performed using one or more of the following dose reduction techniques: automated exposure control, adjustment of the mA and/or kV according to patient size, and/or use of iterative reconstruction technique. COMPARISON: No relevant prior studies available. FINDINGS: Vertebrae: No acute fracture. Discs/spinal canal/neural foramina: degenerative changes. Soft tissues: No prevertebral swelling. IMPRESSION: No acute fracture or subluxation.
[2024-11-20 05:01] LABS: African American GFR (CKD) >90 (>60 ml/min/1.73 sqM); Anion Gap 4 mmol/L; Blood Urea Nitrogen 27 mg/dL (7-17); Carbon Dioxide 30 mmol/L (22-30); Chloride 99 mmol/L (98-107); Glucose 147 mg/dL (74-99); Potassium 3.5 mmol/L (3.5-5.1); Sodium 133 mmol/L (137-145)
[2024-11-20 05:02] LABS: ALT 27 U/L (4-34); AST 19 U/L (14-36); Albumin 3.6 g/dL (3.5-5.0); Alkaline Phosphatase 171 U/L (38-126); Calcium 9.5 mg/dL (8.4-10.2); Lipase 111 U/L (23-300); Non-African American GFR(CKD) 82 (>60 ml/min/1.73 sqM); Total Bilirubin 0.9 mg/dL (0.2-1.3); Total Protein 6.3 g/dL (6.3-8.2)
--- NOTE | 2024-11-20 05:12 | XR ---
EXAM: XR Chest, 1 View CLINICAL HISTORY: ITS.REASON XR Reason: falls TECHNIQUE: Frontal view of the chest. COMPARISON: No relevant prior studies available. FINDINGS: Lungs: No consolidation or mass. Pleural space: No acute findings. Heart: No cardiomegaly. Bones/joints: No acute findings. IMPRESSION: No acute cardiopulmonary process.
--- NOTE | 2024-11-20 05:12 | XR ---
EXAM: XR Pelvis, 1 or 2 Views CLINICAL HISTORY: ITS.REASON XR Reason: falls TECHNIQUE: Frontal view of the pelvis. COMPARISON: No relevant prior studies available. FINDINGS: Bones/joints: No acute fracture. No dislocation. Soft tissues: Unremarkable. IMPRESSION: No acute findings.
--- NOTE | 2024-11-20 05:12 | XR ---
EXAM: XR Bilateral Shoulders Complete, 2 or More Views CLINICAL HISTORY: ITS.REASON XR Reason: fall TECHNIQUE: Two or more views of the bilateral shoulders. COMPARISON: No relevant prior studies available. FINDINGS: Bones/joints: No acute fracture. No dislocation. Bilateral moderate AC joint osteoarthrosis Soft tissues: Unremarkable. IMPRESSION: No acute osseous abnormalities.
[2024-11-20] MEDS: HYDROcodone/APAP 5-325MG 1 EACH TAB PO STA (05:15)
[2024-11-20 05:17] LABS: HCT 41.5 % (34.0-46.0); HGB 14.4 gm/dL (11.4-16.0); MCH 31.9 pg (25.0-35.0); MCHC 34.8 g/dL (31.0-37.0); MCV 91.7 fL (80.0-100.0); Mean Platelet Volume 8.9; Platelet Count 240 k/uL (150-450); RBC 4.52 m/uL (3.80-5.40); RDW 13.4 % (11.5-15.5); WBC 9.5 k/uL (3.8-10.6)
[2024-11-20 06:07] LABS: Eosinophils # (M) 0.19 k/uL (0-0.7); Lymphocytes # (M) 1.52 k/uL (1.0-4.8); Monocytes # (M) 0.67 k/uL (0-1.0); Neutrophils # (M) 7.13 k/uL (1.3-7.7); Neutrophils % (M) 75 %; Nucleated Red Blood Cells 0 /100 WBC (0-0); Total Cells Counted 100
[2024-11-20] MEDS: SODIUM CHLORIDE 0.9% 500 ML 500 ML IV ONE (06:39)
[2024-11-20] MEDS ORDERED: NALOXONE 0.4 MG/ML 1 ML VIAL IV PRN (06:42)
[2024-11-20] MEDS: SODIUM CHLORIDE 0.9% 1,000 ML IV SCH (07:40)
--- NOTE | 2024-11-20 07:53 | CT ---
EXAMINATION TYPE: CT lumbar spine wo con DATE OF EXAM: 11/20/2024 7:16 AM COMPARISON: CT chest abdomen and pelvis October 30, 2024. CLINICAL INDICATION: Female, 84 years old with history of back pain fall; PHH, Back pain from fall TECHNIQUE: Unenhanced CT of the lumbar spine was performed. Bone and soft tissue window settings are submitted as well as coronal and sagittal reconstructions. CT DLP: 891.[address] CTDI: 24 mGy Automated exposure control for dose reduction was used. FINDINGS: There are 5 lumbar type vertebra redemonstrated. Persistent bilateral posterior intrapedicular rods a nd screws transfixing L2-L3 and L4-L5 levels. Persistent metallic disc spacer at L4-L5 level. Slight underlying scoliotic curvature redemonstrated. Vertebral body heights and disc space heights are main tained above and below surgical levels. No acute displaced fracture. Posterior spur disc complex is r edemonstrated effacing anterior thecal sac at T12-L1 level sagittal image 34. Facet arthropathy in th e lower lumbar spine is again seen. Review of axial images show surgical changes in the sigmoid colon in the left upper pelvis. There is persistent moderate to severe right-sided hydronephrosis without significant hydroureter. There is pe rsistent mild to moderate scarring in the bilateral lung bases. IMPRESSION: No acute fracture or dislocation in the lumbar spine. [facility], , 11/20/2024 7:51 AM
[2024-11-20 08:26] LABS: Appearance,Urine Clear (Clear); Bacteria,Urine Occasional /hpf; Bilirubin,Urine Negative (Negative); Blood,Urine Small (Negative); Budding Yeast,Urine Occasional /hpf; Color,Urine Colorless; Glucose,Urine (UA) Negative (Negative); Ketones,Urine Negative (Negative); Leukocyte Esterase,Urine Large (Negative); Mucus,Urine Rare /hpf; Nitrite,Urine Positive (Negative); PH, Urine 6.5 (5.0-8.0); Protein,Urine Negative (Negative); RBC,Urine 2 /hpf (0-5); Specific Gravity,Urine 1.008 (1.001-1.035); Squamous Epithelial Cell,Urine 1 /hpf (0-4); Urobilinogen,Urine <2.0 mg/dL (<2.0); WBC,Urine 28 /hpf (0-5)
--- NOTE | 2024-11-20 12:53 | P.HPIM ---
History of Present Illness H&P Date: 11/20/24 84 year old F with PMH HTN, HLD, urinary urgency, Hypothyroidism, CAD with stent, Parkinsons, Anxiety and Depression presents the the ED. Patient is a poor historian and majority of information is obtained from chart review. Sent in from assisted living facility for multiple falls unsure of LOC. Patient is unsure when she is currently in the hospital but is alert and oriented x 3. She reports no complaints at this time except that she "feels like she has to pee". In the ED she underwent extensive evaluation. BP 139/77, HR 65, RR 18, T 97.7F, 97% on RA. CBC, CMP significant for Na 133, BUN 27m glu 147, alk phos 171. Lipase 111. UA positive nitrite and large LE. CT head and C-spine showed ante rior falcine meningioma without acute process. Chest, Pelvis, Shoulder XR negative. CT L spine negative. EKG sinus rhythm with no ST elevation. Patient is admitted for further workup and management. General: non toxic, no distress, appears at stated age Derm: warm, dry Head: atraumatic, normocephalic, symmetric Eyes: EOMI, no lid lag, anicteric sclera Mouth: no lip lesion, mucus membranes moist Cardiovascular: S1S2 reg, systolic murmur Lungs: CTA bilateral, no rhonchi, no rales , no accessory muscle use Ext: no gross muscle atrophy, no edema, no contractures Neuro: no focal neuro deficits Psych: Alert, oriented, appropriate affect Based on my assessment of this patient, this patient meets a high complexity level of care. Generalized weakness with falls secondary to UTI: Previous UCx + E. coli. Start Rocephin 1g IV QD. Obtain UCx. Does not meet sepsis criteria. Acute metabolic encephalopathy likely due to above: Fall precautions. PT consult. Hyponatremia and prerenal azotemia likely due to dehydration: Status post 1L NS bolus. Repeat BMP in the AM. HTN: Chlorthalidone 25 mg PO QD. Amlodipine 10 mg PO QD. HLD: Lipitor 40 mg PO QHS. Urinary urgency: Trospium 20 mg PO BID. Oxybutynin 5 mg PO QD. Hypothyroidism: Synthroid 50 mcg PO QD. CAD with stent: ASA 81 mg PO QD. Lipitor as above. Parkinsons: Sinemet 10-100 mg PO QID. Anxiety and Depression: Trazadone 100 mg PO QHS. Effexor 150 mg PO QD. CODE STATUS: FULL CODE DVT Prophylaxis: Lovenox SQ. GI Prophylaxis: Protonix PO Designated medical POA if patient is not able to make medical decisions for themselves: I have reviewed the following lead sales consultant notes: ED note I have reviewed the results of the following tests: As above I have ordered the following tests: As above I have discussed the care of this patient with the following independent historian: I have independently interpreted the following test below: EKG I have discussed the management of this patient with the following physician: Past Medical History Past Medical History: GERD/Reflux, Hyperlipidemia, Hypertension, Memory Impairment, Osteoarthritis (OA), Skin Disorder, Thyroid Disorder Additional Past Medical History / Comment(s): hx. kidney stones,UTI, constipation,INCONT OF URINE KWAN A PAD, MIGRAINES, PT STATED YEARS AGO A DR TOLD HER SHE HAD "COLITIS" History of Any Multi-Drug Resistant Organisms: ESBL Date of last positivie culture/infection: 06/25/17 MDRO Source:: urine Past Surgical History: Appendectomy, Back Surgery, Bowel Resection, Cholecystectomy, Heart Catheterization With Stent, Hysterectomy Additional Past Surgical History / Comment(s): lower back disk fusion Past Anesthesia/Blood Transfusion Reactions: Motion Sickness Date of Last Stent Placement:: 2000 Past Psychological History: Anxiety, Depression Smoking Status: Never smoker Past Alcohol Use History: None Reported Past Drug Use History: None Reported - Past Family History Mother History Unknown: Yes Family Medical History: Hypertension Father History Unknown: Yes Family Medical History: Hypertension Medications and Allergies Home Medications Medication Instructions Recorded Confirmed Type Felodipine [Plendil] 10 mg PO DAILY 01/24/16 11/20/24 History Levothyroxine Sodium [Synthroid] 50 mcg PO DAILY 01/24/16 11/20/24 History Venlafaxine HCl [Effexor] 150 mg PO DAILY 01/24/16 11/20/24 History Omeprazole 40 mg PO DAILY 12/09/17 11/20/24 History Atorvastatin [Lipitor] 40 mg PO HS 04/18/19 11/20/24 History Carbidopa-Levodopa 10-100 mg 1 tab PO QID 01/28/23 11/20/24 History [Sinemet 10-100 mg] Chlorthalidone 25 mg PO DAILY 08/25/23 11/20/24 History Potassium Chloride [Klor-Con M20] 20 meq PO BID 08/25/23 11/20/24 History oxyBUTYnin chloride [oxyBUTYnin 5 mg PO DAILY 02/29/24 11/20/24 History chloride ER] Acetaminophen Tab [Tylenol Tab] 500 mg PO Q6H PRN 11/20/24 11/20/24 History Ascorbic Acid [Vitamin C] 500 mg PO DAILY 11/20/24 11/20/24 History Aspirin 81 mg PO DAILY 11/20/24 11/20/24 History Calcium Carbonate [Calcium] 600 mg PO DAILY 11/20/24 11/20/24 History Cholecalciferol [Vitamin D3 (25 25 mcg PO DAILY 11/20/24 11/20/24 History Mcg = 1000 Iu)] Diclofenac Sodium Gel [Voltaren 1% 1 applic TOPICAL Q6HR PRN 11/20/24 11/20/24 History Gel] Methenamine Hippurate 1 gm PO BID 11/20/24 11/20/24 History Nystatin [Nystop] 1 applic TOPICAL TID 11/20/24 11/20/24 History Sennosides/Docusate Sodium [Senna 1 tab PO DAILY 11/20/24 11/20/24 History Plus 8.6-50 mg Tablet] Sennosides/Docusate Sodium [Senna 1 tab PO DAILY PRN 11/20/24 11/20/24 History Plus 8.6-50 mg Tablet] Solifenacin Succinate [Vesicare] 10 mg PO DAILY 11/20/24 11/20/24 History Spironolactone [Aldactone] 25 mg PO DAILY 11/20/24 11/20/24 History traZODone HCL 100 mg PO HS@199911/20/24 11/20/24 History Allergies Allergy/AdvReac Type Severity Reaction Status Date / Time azithromycin [From Zithromax] Allergy Rash/Hives Verified 11/20/24 08:50 celecoxib [From Celebrex] Allergy Unknown Verified 11/20/24 08:50 Penicillins Allergy Rash/Hives Verified 11/20/24 08:50 Sulfa (Sulfonamide Allergy Unknown Verified 11/20/24 08:50 Antibiotics) ciprofloxacin [From Cipro] AdvReac Unknown Verified 11/20/24 08:50 nitrofurantoin AdvReac Unknown Verified 11/20/24 08:50 [From Macrobid] tramadol HCl [From Ultram] AdvReac stomach Verified 11/20/24 08:50 upset Physical Exam Vitals: Vital Signs Temp Pulse Pulse Resp BP BP Pulse Ox 11/20/24 09:27 98.1 F 63 18 138/52 100 11/20/24 09:24 18 11/20/24 08:45 98.2 F 74 18 155/72 97 11/20/24 07:43 97.9 F 76 18 157/70 97 11/20/24 05:01 60 16 121/64 11/20/24 03:02 97.7 F 65 18 139/77 97 Intake and Output 11/19/24 11/20/24 11/20/24 22:59 06:59 14:59 Other: Voiding Method Diaper Incontinent External Catheter Weight 68.039 kg 68.039 kg Results CBC & Chem 7: 11/20/24 04:42 11/20/24 04:42 Labs: Abnormal Lab Results - Last 24 Hours (Table) 11/20/24 11/20/24 Range/Units 04:42 08:08 Sodium 133 L (137-145) mmol/L BUN 27 H (7-17) mg/dL Glucose 147 H (74-99) mg/dL Alkaline Phosphatase 171 H (38-126) U/L Urine Blood Small H (Negative) Urine Nitrite Positive H (Negative) Ur Leukocyte Esterase Large H (Negative) Urine WBC 28 H (0-5) /hpf Urine Bacteria Occasional H (None) /hpf Urine Mucus Rare H (None) /hpf Urine Yeast (Budding) Occasional H (None) /hpf Thrombosis Risk Factor Assmnt - Choose All That Apply Any of the Below Risk Factors Present?: Yes Each Factor Represents 1 point: Obesity (BMI >25) Other Risk Factors: Yes Each Risk Factor Represents 3 Points: Age 75 years or older Other congenital or acquired thrombophilia - If yes, enter type in comment: No Thrombosis Risk Factor Assessment Total Risk Factor Score: 4 Thrombosis Risk Factor Assessment Level: Moderate Risk
[2024-11-20] MEDS: HYDROcodone/APAP 5-325MG 1 EACH TAB PO PRN (13:17)
[2024-11-20] MEDS: CARBIDOPA-LEVODOPA 10-100 MG 1 EACH TAB PO SCH (13:17)
[2024-11-20] MEDS: traZODone HCL 100 MG TAB PO SCH (21:49)
[2024-11-20] MEDS: ATORVASTATIN 40 MG TAB PO SCH (21:49)
[2024-11-21] MEDS: LEVOTHYROXINE 50 MCG TAB PO SCH (06:16)
[2024-11-21] MEDS: PANTOPRAZOLE 40 MG TABLET PO SCH (07:00)
[2024-11-21] MEDS: SPIRONOLACTONE 25 MG TAB PO SCH (08:42)
[2024-11-21] MEDS: amLODIPine 10 MG TAB PO SCH (08:42)
[2024-11-21] MEDS: OXYBUTYNIN XL 5 MG TAB.ER.24 PO SCH (08:42)
[2024-11-21] MEDS: CHLORTHALIDONE 25 MG TAB PO SCH (08:42)
[2024-11-21] MEDS: ASPIRIN 81 MG PO SCH (08:43)
[2024-11-21] MEDS: VENLAFAXINE HCL 75 MG TAB PO SCH (08:43)
[2024-11-21] MEDS: TROSPIUM CHLORIDE 20 MG TABLET PO SCH (08:43)
[2024-11-21] MEDS: ENOXAPARIN 40 MG/0.4 ML SYRINGE SQ SCH (08:43)
--- NOTE | 2024-11-21 13:23 | P.PN ---
Subjective Progress Note Date: 11/21/24 84 year old F with PMH HTN, HLD, urinary urgency, Hypothyroidism, CAD with stent, Parkinsons, Anxiety and Depression presents the the ED. Patient is a poor historian and majority of information is obtained from chart review. Sent in from assisted living facility for multiple falls unsure of LOC. Patient is unsure when she is currently in the hospital but is alert and oriented x 3. She reports no complaints at this time except that she "feels like she has to pee". In the ED she underwent extensive evaluation. BP 139/77, HR 65, RR 18, T 97.7F, 97% on RA. CBC, CMP significant for Na 133, BUN 27m glu 147, alk phos 171. Lipase 111. UA positive nitrite and large LE. CT head and C-spine showed anterior falcine meningioma without acute process. Chest, Pelvis, Shoulder XR negative. CT L spine negative. EKG sinus rhythm with no ST elevation. Patient is admitted for further workup and management. Started on Rocephin for treatment of UTI. 11/21 Patient was seen and examined. No complaints. Feeling tired. Son at bedside. No new labs done today. General: non toxic, no distress, appears at stated age Derm: warm, dry Head: atraumatic, normocephalic, symmetric Eyes: EOMI, no lid lag, anicteric sclera Mouth: no lip lesion, mucus membranes moist Cardiovascular: S1S2 reg, systolic murmur Lungs: CTA bilateral, no rhonchi, no rales , no accessory muscle use Ext: no gross muscle atrophy, no edema, no contractures Neuro: no focal neuro deficits Psych: Alert, oriented, appropriate affect Based on my assessment of this patient, this patient meets a high complexity level of care. Generalized weakness with falls secondary to UTI: Previous UCx + E. coli. Rocephin 1g IV QD. Follow UCx. Does not meet sepsis criteria. Acute metabolic encephalopathy likely due to above: Fall precautions. PT consult. Systolic murmur: Previous Echo is 2022 mild . Given recent falls, repeat Echo ordered. Hyponatremia and prerenal azotemia likely due to dehydration: Status post 1L NS bolus. Repeat BMP in the AM. HTN: Chlorthalidone 25 mg PO QD. Amlodipine 10 mg PO QD. HLD: Lipitor 40 mg PO QHS. Urinary urgency: Trospium 20 mg PO BID. Oxybutynin 5 mg PO QD. Hypothyroidism: Synthroid 50 mcg PO QD. CAD with stent: ASA 81 mg PO QD. Lipitor as above. Parkinsons: Sinemet 10-100 mg PO QID. Anxiety and Depression: Trazadone 100 mg PO QHS. Effexor 150 mg PO QD. CODE STATUS: FULL CODE DVT Prophylaxis: Lovenox SQ. GI Prophylaxis: Protonix PO Designated medical POA if patient is not able to make medical decisions for t hemselves: I have reviewed the following technical services consultant notes: I have reviewed the results of the following tests: I have ordered the following tests: BMP. Echo. I have discussed the care of this patient with the following independent historian: RN. Son I have independently interpreted the following test below: I have discussed the management of this patient with the following physician: Objective - Vital Signs Vital signs: Vital Signs Temp 97.8 F 11/21/24 07:21 Pulse 62 11/21/24 07:21 Resp 18 11/21/24 07:21 BP 137/70 11/21/24 07:21 Pulse Ox 98 11/21/24 07:21 FiO2 Intake & Output 11/20/24 11/21/24 11/21/24 18:59 06:59 18:59 Output Total 1350 Balance -1350 Weight 68.039 kg Output: Urine 1350 Other: Voiding Method Diaper Diaper Diaper Incontinent Incontinent Incontinent External Catheter External Catheter External Catheter # Voids 2 - Labs CBC & Chem 7: 11/20/24 04:42 11/20/24 04:42
[2024-11-22 08:47] LABS: Blood Urea Nitrogen 27.3 mg/dL (9.0-27.0); Carbon Dioxide 30.5 mmol/L (21.6-31.8); Chloride 101 mmol/L (96-109); Glucose 162 mg/dL (70-110); Potassium 3.5 mmol/L (3.5-5.5); Sodium 140 mmol/L (135-145)
[2024-11-22 08:48] LABS: Calcium 9.4 mg/dL (8.7-10.3)
--- NOTE | 2024-11-22 09:57 | CA ---
Transthoracic Echo Report Name: Mohini Keating Age: 84 Gender: F : 1940 Exam Date: 11/21/2024 14:11 Exam Location: [facility] Ht (in): 64 Wt (lb): 150 Ordering Physician: Pearl Virk MD Attending/Referring Phys: Flavorer Ann Orr RDCS Procedure CPT: Indications: systolic murmur, frequent falls Cardiac Hx: Technical Quality: Poor, Very technically difficult study Contrast 1: Definity Total Dose (mL): 2 Contrast 2: Total Dose (mL): MEASUREMENTS (Male / Female) Normal Values 2D ECHO LVOT Diameter 1.7 cm M-MODE Aortic Root Diameter MM 2.4 cm LA Systolic Diameter MM 3.8 cm LA Ao Ratio MM 1.6 DOPPLER AV Peak Velocity 194.6 cm/s AV Peak Gradient 15.1 mmHg AV Mean Velocity 142.5 cm/s AV Mean Gradient 9.5 mmHg AV Velocity Time Integral 41.6 cm LVOT Peak Velocity 142.0 cm/s LVOT Peak Gradient 8.1 mmHg LVOT Velocity Time Integral 35.9 cm LVOT Stroke Volume 79.9 cm??? LVOT Stroke Volume Index 46.2 ml/m??? LVOT Cardiac Index 3620.7 cm???/min???m??? AV Area Cont Eq vti 1.9 cm??? AV Area Cont Eq pk 1.6 cm??? MV Peak Velocity 199.6 cm/s MV Peak Gradient 15.9 mmHg MV Mean Velocity 101.3 cm/s MV Mean Gradient 5.1 mmHg MV Velocity Time Integral 46.3 cm Mitral E Point Velocity 80.5 cm/s Mitral A Point Velocity 164.0 cm/s Mitral E to A Ratio 0.5 MV Deceleration Time 421.6 ms MV E' Velocity 5.3 cm/s Mitral E to MV E' Ratio 15.1 TR Peak Velocity 166.4 cm/s TR Peak Gradient 11.1 mmHg FINDINGS Left Ventricle No obvious regional wall motion abnormalities. Right Ventricle Right ventricle not well visualized. Right Atrium Right atrium not well visualized. Left Atrium Left atrium not well visualized. Mitral Valve Moderate mitral stenosis, Mean MV PG 5 mmHg. Trace to mild mitral regurgitation. Aortic Valve Aortic valve not well visualized. Mild aortic stenosis with a peak gradient of 21mmHg and a mean gradient of 13mmHg. No aortic regurgitation. Tricuspid Valve Tricuspid valve not well visualized. Trace tricuspid regurgitation. No tricuspid stenosis. Pulmonic Valve Structurally normal pulmonic valve. No pulmonic stenosis. Trace pulmonic regurgitation. Pericardium No pericardial or pleural effusion. Aorta Normal size aortic root and proximal ascending aorta. CONCLUSIONS Poor, Very technically difficult study. Overall LVEF appears to be preserved with EF around 55% No obvious regional wall motion abnormality. Grade 1 diastolic dysfunction Mild aortic stenosis Calcific degeneration of mitral valve with mild to moderate mitral stenosis Previewed by: Dr Alistair Mariee (Electronically Signed) Final Date: 22 November 2024 09:56
[2024-11-22 13:52] VITALS: BP 110/50; PULSE 76; RESP 19; TEMP 98.3
--- NOTE | 2024-11-22 15:16 | P.DS ---
Providers Date of admission: 11/20/24 06:43 Expected date of discharge: 11/22/24 Attending physician: Froylan Palma MD Primary care physician: Jan Vieira [facility] Hospital Course: Discharge Diagnosis: Urinary tract infection Acute metabolic encephalopathy Debility Frequent falls Mild hyponatremia Hypertension Dyslipidemia Hypothyroidism CAD status post stent Parkinson's disease Anxiety/depression Hospital Course: 84 year old F with PMH HTN, HLD, urinary urgency, Hypothyroidism, CAD with stent, Parkinsons, Anxiety and Depression presents with frequent falls, acute encephalopathy. In the ED she underwent extensive evaluation. BP 139/77, HR 65, RR 18, T 97.7F, 97% on RA. CBC, CMP significant for Na 133, BUN 27m glu 147, alk phos 171. Lipase 111. UA positive nitrite and large LE. CT head and C-spine showed anterior falcine meningioma without acute process. Chest, Pelvis, Shoulder XR negative. CT L spine negative. EKG sinus rhythm with no ST elevation. Patient is admitted for further workup and management. Patient c ontinued on IV ceftriaxone. Cultures growing gram-negative bacilli. Recent cultures have all grown E. coli sensitive to cephalosporins. Patient does not have any signs of systemic infection. Encephalopathy improved, patient at baseline per son. Echocardiogram was also completed due to systolic murmur, EF 55%, grade 1 diastolic dysfunction, mild aortic stenosis. Patient to be discharged to subacute rehab on oral cefdinir. Patient seen and examined at bedside. Vital signs reviewed and stable. General: Nontoxic, no distress, appears at stated age Derm: Warm, dry Head: Atraumatic, normocephalic, symmetric Eyes: EOMI, no lid lag, anicteric sclera Mouth: No lip lesion, mucus membranes moist Cardiovascular: S1S2 reg, systolic murmur Lungs: CTA bilateral, no rhonchi, no rales, no accessory muscle use Abdominal: Soft, nontender to palpation, no guarding, no appreciable organomegaly Ext: No gross muscle atrophy, no edema, no contractures Neuro: CN II-XI grossly intact, no focal neuro deficits Psych: Alert, oriented x 2, appropriate affect A total of 38 minutes of time were spent preparing this complex discharge summary. Patient was discharged on 11/22/2024 at 1509. Patient Condition at Discharge: Stable Plan - Discharge Summary Discharge Rx Participant: No New Discharge Prescriptions: New Cefdinir 300 mg PO Q12HR #6 cap Continue Venlafaxine HCl [Effexor] 150 mg PO DAILY Levothyroxine Sodium [Synthroid] 50 mcg PO DAILY Felodipine [Plendil] 10 mg PO DAILY Omeprazole 40 mg PO DAILY Atorvastatin [Lipitor] 40 mg PO HS Carbidopa-Levodopa 10-100 mg [Sinemet 10-100 mg] 1 tab PO QID Chlorthalidone 25 mg PO DAILY Potassium Chloride [Klor-Con M20] 20 meq PO BID oxyBUTYnin chloride [oxyBUTYnin chloride ER] 5 mg PO DAILY Acetaminophen Tab [Tylenol] 500 mg PO Q6H PRN PRN Reason: Pain traZODone HCL 100 mg PO HS@2000 Cholecalciferol [Vitamin D3 (25 Mcg = 1000 Iu)] 25 mcg PO DAILY Spironolactone [Aldactone] 25 mg PO DAILY Sennosides/Docusate Sodium [Senna Plus 8.6-50 mg Tablet] 1 tab PO DAILY Nystatin [Nystop] 1 applic TOPICAL TID Calcium Carbonate [Calcium] 600 mg PO DAILY Aspirin 81 mg PO DAILY Diclofenac Sodium Gel [Voltaren 1% Gel] 1 applic TOPICAL Q6HR PRN PRN Reason: Pain Ascorbic Acid [Vitamin C] 500 mg PO DAILY Solifenacin Succinate [Vesicare] 10 mg PO DAILY Methenamine Hippurate 1 gm PO BID Sennosides/Docusate Sodium [Senna Plus 8.6-50 mg Tablet] 1 tab PO DAILY PRN PRN Reason: Constipation Discharge Medication List Felodipine [Plendil] 10 mg PO DAILY 01/24/16 [History] Levothyroxine Sodium [Synthroid] 50 mcg PO DAILY 01/24/16 [History] Venlafaxine HCl [Effexor] 150 mg PO DAILY 01/24/16 [History] Omeprazole 40 mg PO DAILY 12/09/17 [History] Atorvastatin [Lipitor] 40 mg PO HS 04/18/19 [History] Carbidopa-Levodopa 10-100 mg [Sinemet 10-100 mg] 1 tab PO QID 01/28/23 [History] Chlorthalidone 25 mg PO DAILY 08/25/23 [History] Potassium Chloride [Klor-Con M20] 20 meq PO BID 08/25/23 [History] oxyBUTYnin chloride [oxyBUTYnin chloride ER] 5 mg PO DAILY 02/29/24 [History] Acetaminophen Tab [Tylenol] 500 mg PO Q6H PRN 11/20/24 [History] Ascorbic Acid [Vitamin C] 500 mg PO DAILY 11/20/24 [History] Aspirin 81 mg PO DAILY 11/20/24 [History] Calcium Carbonate [Calcium] 600 mg PO DAILY 11/20/24 [History] Cholecalciferol [Vitamin D3 (25 Mcg = 1000 Iu)] 25 mcg PO DAILY 11/20/24 [History] Diclofenac Sodium Gel [Voltaren 1% Gel] 1 applic TOPICAL Q6HR PRN 11/20/24 [History] Methenamine Hippurate 1 gm PO BID 11/20/24 [History] Nystatin [Nystop] 1 applic TOPICAL TID 11/20/24 [History] Sennosides/Docusate Sodium [Senna Plus 8.6-50 mg Tablet] 1 tab PO DAILY 11/20/24 [History] Sennosides/Docusate Sodium [Senna Plus 8.6-50 mg Tablet] 1 tab PO DAILY PRN 11/20/24 [History] Solifenacin Succinate [Vesicare] 10 mg PO DAILY 11/20/24 [History] Spironolactone [Aldactone] 25 mg PO DAILY 11/20/24 [History] traZODone HCL 100 mg PO HS@199911/20/24 [History] Cefdinir 300 mg PO Q12HR #6 cap 11/22/24 [Rx] Follow up Appointment(s)/Referral(s): [facility] [NON-STAFF] - 1 Week None,Stated [REFERRING] - 1-2 days Patient Instructions/Handouts: Urinary Tract Infection in Women (DC) Activity/Diet/Wound Care/Special Instructions: Please see PCP. Discharge Disposition: TRANSFER TO [facility]
== END 2024-11-22 17:25 ==
LOC: EC 02:59 → 4SSUR 06:43
PROVIDERS: ADMIT Internal Medicine; ATTEND Internal Medicine
DX: N39.0 Urinary tract infection, site not specified (principal); G93.41 Metabolic encephalopathy; R29.6 Repeated falls; R53.81 Other malaise; E87.1 Hypo-osmolality and hyponatremia; R01.1 Cardiac murmur, unspecified; I10 Essential (primary) hypertension; E78.5 Hyperlipidemia, unspecified; E03.9 Hypothyroidism, unspecified; I25.10 Atherosclerotic heart disease of native coronary artery without angina pectoris; G20.A1 Parkinson's disease without dyskinesia, without mention of fluctuations; F32.A Depression, unspecified; F41.9 Anxiety disorder, unspecified; K21.9 Gastro-esophageal reflux disease without esophagitis; Z95.5 Presence of coronary angioplasty implant and graft; Z79.899 Other long term (current) drug therapy; Z79.890 Hormone replacement therapy; Z79.82 Long term (current) use of aspirin; Z87.442 Personal history of urinary calculi; Z88.1 Allergy status to other antibiotic agents; Z88.6 Allergy status to analgesic agent; Z88.0 Allergy status to penicillin; Z88.2 Allergy status to sulfonamides
CPT/HCPCS: 96365; 96366; 96372 ×2; 96361; 99285; 36415; 93005; 97162; 97166; 36410; 76937; 80053; 80048; 83690; 85025; 81001; 87086; 87077; 87186; 73020; 72170; 71045; 72125; 72131; 70450; G0378 ×3; C8929; J1650 ×2; J0696 ×3; Q9957; 93306